=== PATIENT | female | born 1945 | race Caucasian/White ===

== ENCOUNTER 2021-07-21 12:47 | Inpatient (IN) | payer MEDICARE, MEDICAID, SELFPAY ==
[2021-07-21] VITALS (31 sets, daily range): BP systolic 92–181; BP diastolic 50–160; PULSE 70–116; RESP 14–25; TEMP 35.4–37.1; O2SAT 95–100; BMI 39.4; BMI 38.3
--- NOTE | 2021-07-21 13:02 | CT_ITS ---
STUDY: CT BRAIN WITHOUT CONTRAST REASON FOR EXAM: Female, 76 years old. GCS 6, head trauma concern for hemorrhage RADIATION DOSAGE (If Supplied By Facility): CTDIvol = ( 44.99 ) mGy, DLP = ( 863.60 ) mGycm TECHNIQUE: Transaxial CT imaging of the brain was performed without administration of intravenous contrast material. Individualized dose optimization techniques were used for this CT. COMPARISON: No relevant priors. FINDINGS: Normal soft tissue structures. Normal calvarium. Endotracheal tube is visualized. There is mild cerebral atrophy with widening of the extra-axial spaces and ventricular dilatation. There are areas of decreased attenuation within the white matter tracts of the supratentorial brain, consistent with microvascular disease changes. Normal basal ganglia and thalami. Normal brainstem. Normal cerebellum. There is no intracranial hemorrhage. There are no findings of an acute ischemic infarction. Atherosclerotic calcification of the vertebral arteries and cavernous portions of the internal carotid arteries bilaterally. Normal visualized paranasal sinuses. CT/Brain/Head without Contrast IMPRESSION: Chronic involutional changes of the brain. Electronically Signed: Marc Petit MD at 13:56 EST , Service support ,
--- NOTE | 2021-07-21 13:03 | EKG12_ITS ---
Test Reason : FALL Blood Pressure : / mmHG Vent. Rate : 114 BPM Atrial Rate : 114 BPM P-R Int : 144 ms QRS Dur : 104 ms QT Int : 358 ms P-R-T Axes : 049 -34 107 degrees QTc Int : 493 ms Sinus tachycardia Left axis deviation Left ventricular hypertrophy with repolarization abnormality Abnormal ECG Confirmed by MIGUELINA COYNE, MARTY ([id number]), index editor JACQUE ISBELL ([id number]) on 07/24/2021 11:00:57 AM Referred By: TRAM Confirmed By:MARTY MCINTYRE MD
--- NOTE | 2021-07-21 13:04 | RAD_ITS ---
STUDY: X-RAY CHEST REASON FOR EXAM: Female, 76 years old. Intubation TECHNIQUE: Single AP portable view of the chest. COMPARISON: None. FINDINGS: An endotracheal tube is in situ. The tip is at the origin of the right mainstem bronchus. It should be withdrawn approximately 2.5 cm. An orogastric tube is seen with the tip coiled in the fundal portion of the stomach. EKG electrodes are seen. The lungs are clear and expanded. There is no demonstrated pleural abnormality. Normal size heart. Normal mediastinum and meagan. Normal visualized pulmonary arteries. There is atherosclerotic calcification of the aortic arch with tortuosity. There are diffuse degenerative changes of the visualized thoracic spine. Status post left shoulder replacement. There is no demonstrated abnormality of the visualized soft tissue structures of the upper abdomen. RAD/Chest 1 View (Portable) IMPRESSION: The tip of the endotracheal tube is at the origin of the right mainstem bronchus. It should be pulled back approximately 2.5 cm. The tip of the orogastric tube is coiled with the tip in the fundal portion of the stomach. The lungs are unremarkable. Electronically Signed: Marc Petit MD at 14:06 EST , Service support ,
[2021-07-21] MEDS: Rocuronium Bromide 50 MG/5 ML Vial 60 MG IV (13:12)
[2021-07-21] MEDS: Etomidate 20 MG/10 ML Vial IV (13:12)
--- NOTE | 2021-07-21 13:16 | EX.ED.CRITCA ---
HPI History of Present Illness Chief Complaint: Alt LOC Detail of Chief Complaint: Altered mental status. Daughter saw last week. Informant: family Onset/Context/Timing Onset: - (There is discrepancy when patient became less responsive) Mechanism/Context: Yes fall and Yes other Current Severity: Severe Maximum Severity: Severe Worsened by: Patient has history of thrombocytopenia due to cirrhotic liver disease Relieved by: Nothing Associated Symptoms Length of loss of consciousness: Unknown Narrative Narrative: Patient is an elderly woman with history of hypertension, cirrhotic liver disease, GERD who was seen 2 weeks ago at outside facility after fall. Work-up apparently was negative. Daughter is concerned because she has bruises and is not responsive. Per daughter she is at nursing facility for rehab after fall. Daughter states she was talking and able to walk 1 month ago. She is concerned because she is very edematous. Prior similar symptoms: No Recent Illness/Hospitalization: Yes PFSH PFSH Medical History CHF (congestive heart failure) Hepatic failure HLD (hyperlipidemia) HTN (hypertension) STEARNS (nonalcoholic steatohepatitis) Peripheral vascular disease Type 2 diabetes mellitus Home Medications acetaminophen 500 mg PO Q6H PRN 07/21/21 [History Last Taken 07/16/21] bumetanide [Bumex] 2 mg PO DAILY 07/21/21 [History Last Taken 07/21/21] cinnamon bark [Cinnamon] 500 mg PO BID 07/21/21 [History Last Taken 07/21/21] isosorbide mononitrate 30 mg PO DAILY 07/21/21 [History Last Taken 07/21/21] lactulose 30 ml PO 4X/DAY 07/21/21 [History Last Taken 07/21/21] levothyroxine 25 mcg PO DAILY 07/21/21 [History Last Taken 07/21/21] lisinopril 5 mg PO DAILY 07/21/21 [History Last Taken 07/21/21] olopatadine 1 drp EACH EYE BID 07/21/21 [History Last Taken 07/21/21] omeprazole 20 mg PO DAILY 07/21/21 [History Last Taken 07/21/21] rifaximin 550 mg PO BID 07/21/21 [History Last Taken 07/21/21] spironolactone [Aldactone] 25 mg PO DAILY 07/21/21 [History Last Taken 07/21/21] tramadol 50 mg PO Q6H PRN 07/21/21 [History Last Taken 07/19/21] Allergy/AdvReac Type Severity Reaction Status Date / Time No Known Allergies Allergy Verified 07/21/21 12:55 Surgical History H/O hernia repair H/O tubal ligation Social History (Updated 07/21/21 @ 13:[address] Loc Atkins MD) housing: group home Smoking Status: Never smoker substance use type: does not use ROS ROS ED Review of Systems ROS Unobtainable: due to mental status EXAM Physical Exam Const Vital Signs: 07/21/21 12:49 07/21/21 12:56 07/21/21 13:17 Temperature 97.8 F Temperature Source Temporal Pulse Rate 87 83 98 Respiratory Rate 22 H 18 16 Respiratory Effort Normal Respiratory Pattern Normal Blood Pressure 181/160 H 129/57 H 176/87 H Blood Pressure Mean 167 81 116 Pulse Ox 95 96 100 Oxygen Delivery Method Room Air Room Air Mechanical Ventilator Fraction of Inspired Oxygen (FIO2) 07/21/21 13:20 07/21/21 13:28 07/21/21 13:33 Temperature Temperature Source Pulse Rate 101 H 101 H Respiratory Rate 16 16 Respiratory Effort Normal Non-Labored Respiratory Pattern Blood Pressure 159/82 H Blood Pressure Mean 107 Pulse Ox 100 100 Oxygen Delivery Method Mechanical Ventilator Fraction of Inspired Oxygen (FIO2) 50 50 07/21/21 13:57 07/21/21 14:13 07/21/21 14:35 Temperature 96.9 F L Temperature Source Core Pulse Rate 116 H 113 H 104 H Respiratory Rate 25 H 19 H 16 Respiratory Effort Respiratory Pattern Blood Pressure 144/89 H 151/83 H 127/83 H Blood Pressure Mean 107 105 97 Pulse Ox 98 97 96 Oxygen Delivery Method Mechanical Ventilator Mechanical Ventilator Mechanical Ventilator Fraction of Inspired Oxygen (FIO2) 50 07/21/21 14:47 07/21/21 14:56 Temperature Temperature Source Pulse Rate 92 91 Respiratory Rate 16 16 Respiratory Effort Respiratory Pattern Blood Pressure 112/66 92/56 L Blood Pressure Mean 81 68 Pulse Ox 96 96 Oxygen Delivery Method Mechanical Ventilator Mechanical Ventilator Fraction of Inspired Oxygen (FIO2) Positive well nourished, well developed, obese and unkempt General Appearance ED: unkempt, well developed, pallor and other Bruises to face, head, torso Nutritional Appearance: obese HEENT trauma; Negative for cyanosis of lips/distal nose Eyes Negative for PERRL or EOMs intact bilaterally Eyes Narrative: Eyes are deviated to the left. Pupils are 1 to 2 mm in size. Neck no lymphadenopathy and no JVD Chest Wall Chest Narrative: Bruising noted. Resp Resp Narrative: Patient has upper airway transmission of sounds to the lower lung. She is having difficulty controlling her secretions and clearing her secretions. Cardio regular rate, regular rhythm, S1 normal heart sound, S2 normal heart sound and no murmurs GI non-tender Palpation: soft Extremity Extremity Narrative: Edema of upper and lower extremities that is pitting Neuro Sensorium / Orientation: lethargic and stuporous Psych Psych Narrative: Unable to assess Appearance: unkempt Skin Skin Narrative: Multiple bruises General Skin Exam: pallor MDM MDM MDM Narrative Medical decision making narrative: The GCS of 6 head trauma eyes deviated concerned she may have an intracranial bleed. She has a signed DNR Comfort Care arrest. This was reviewed with daughter. Daughter states she does not want her heart restarted. Need to rule out intracranial pathology, metabolic and infectious process. Since patient lists levothyroxine as medication will obtain TSH and since she has cirrhosis of the liver will obtain ammonia level as well. Patient was orotracheally intubated. She was placed on high percent nonrebreather. Oxygen was 1%. She received 20 mg of etomidate and 60 mg of rocuronium. She was intubated successfully on first attempt using a 7.5 endotracheal tube. There is concerned she aspirated since there is purulent material noted at the cords. For this reason since there is no antibiotic allergies we will treat with Zosyn for aspiration at a nursing facility. Ammonia is pending. Hospitalist was paged and the patient will require admission to the ICU. The endotracheal tube was pulled back 2 cm. Lab Data Attestation: I reviewed the patient's lab results. Lab results narrative: Patient has anemia. Platelet count is 195,000. PT is slightly elevated with a NR. Urinalysis is essentially markable lactate is elevated 2.4. Chloride is elevated 114. BUN and creatinine are elevated 43 and 1.37 respectively with a GFR of 40 and BUN to creatinine ratio of 1:1 albumin is low at 1.9. TSH is normal. Labs: Laboratory Results - last 24 hr 07/21/21 07/21/21 07/21/21 13:10 13:31 13:54 WBC 9.0 RBC 2.96 L Hgb 8.8 L Hct 27.8 L MCV 93.9 MCH 29.7 MCHC 31.7 L RDW Std Deviation 55.9 H RDW Coeff of [place] 17.1 H Plt Count 195 MPV 10.9 Immature Gran % (Auto) 0.300 Neut % (Auto) 58.6 Lymph % (Auto) 24.9 [place] % (Auto) 14.3 H Eos % (Auto) 1.6 Baso % (Auto) 0.3 Absolute Neuts (auto) 5.3 Absolute Lymphs (auto) 2.25 Nucleated RBC % 0 PT 16.6 H INR 1.4 APTT 33.0 Sodium Potassium Chloride Carbon Dioxide Anion Gap BUN Creatinine Estim Creat Clear Calc Est GFR (MDRD) Af Amer Est GFR (MDRD) Non-Af BUN/Creatinine Ratio Glucose Lactic Acid Calcium Total Bilirubin AST ALT Alkaline Phosphatase Total Protein Albumin Globulin Albumin/Globulin Ratio TSH Urine Color Straw Urine Clarity Clear Urine pH 6.0 Ur Specific [place] 1.010 Urine Protein Negative Urine Glucose (UA) Normal Urine Ketones Negative Urine Occult Blood 10 H Urine Nitrite Negative Urine Bilirubin Negative Urine Urobilinogen Normal Ur Leukocyte Esterase Negative Urine RBC 0-5 SEEN Urine WBC 0 SEEN Ur Squamous Epith Cells 0-5 SEEN Urine Bacteria RARE Urine Mucus 0 SEEN 07/21/21 07/21/21 13:54 13:54 WBC RBC Hgb Hct MCV MCH MCHC RDW Std Deviation RDW Coeff of [place] Plt Count MPV Immature Gran % (Auto) Neut % (Auto) Lymph % (Auto) [place] % (Auto) Eos % (Auto) Baso % (Auto) Absolute Neuts (auto) Absolute Lymphs (auto) Nucleated RBC % PT INR APTT Sodium 143 Potassium 3.7 Chloride 114 H Carbon Dioxide 23.0 Anion Gap 6 BUN 43 H Creatinine 1.37 H Estim Creat Clear Calc 33.73 Est GFR (MDRD) Af Amer 48 L Est GFR (MDRD) Non-Af 40 L BUN/Creatinine Ratio 31.4 H Glucose 128 H Lactic Acid 2.4 H* Calcium 8.7 Total Bilirubin 1.20 H AST 78 H ALT 49 Alkaline Phosphatase 129 H Total Protein 6.1 L Albumin 1.9 L Globulin 4.2 Albumin/Globulin Ratio 0.5 L TSH 2.38 Urine Color Urine Clarity Urine pH Ur Specific [place] Urine Protein Urine Glucose (UA) Urine Ketones Urine Occult Blood Urine Nitrite Urine Bilirubin Urine Urobilinogen Ur Leukocyte Esterase Urine RBC Urine WBC Ur Squamous Epith Cells Urine Bacteria Urine Mucus ABG Data ABG results: ABG 07/21/21 13:49 Specimen Type ART Sample Site L Radial pH 7.48 H Bicarbonate Actual 21.9 L Total CO2 23 Base Excess -2 O2 Saturation 99 O2 % 50 ABG pCO2 29.7 L ABG pO2 140 H [place] Test N/A Respiration Rate 16 O2 Delivery Device ET Tube Vent Mode AC Tidal Volume 450 POC PEEP 5 Radiography Chest X-Ray - ED: 1 View (X-ray was reviewed by me when it was taken and interpreted as negative for any intraparenchymal pathology. Endotracheal tube is in proposition. Orogastric tube is in proper position. There is no evidence of pneumothorax or effusion. Osseous structures appear normal.) Diagnostic Testing: Clinical Impression(s) from Imaging Studies Brain CT 07/21/21 13:02 IMPRESSION: Chronic involutional changes of the brain. Electronically Signed: Marc Petit MD at 13:56 EST , Service support , Chest X-Ray 07/21/21 13:04 IMPRESSION: The tip of the endotracheal tube is at the origin of the right mainstem bronchus. It should be pulled back approximately 2.5 cm. The tip of the orogastric tube is coiled with the tip in the fundal portion of the stomach. The lungs are unremarkable. Electronically Signed: Marc Petit MD at 14:06 EST , Service support , ET of the head was reviewed by me and interpreted radiologist as chronic involutional changes. EKG Initial EKG: Attestation: I personally reviewed and interpreted this EKG as follows: Interpretation: Sinus Tachycardia (Ventricular rate is 114. [place] to left. DE interval is 144 ms. QS duration is 104 ms. QT duration 3 and 58 ms. There is evidence of LVH with repolarization changes noted. There is also artifact. There is no acute ischemic changes noted.) Procedures Intubations Intubation Method: orotracheal Intubation Verification: Positive color change Intubation Complications: no complications Other Procedures Procedure(s): Patient was placed on her percent nonrebreather. She is medicated with 20 of etomidate and 60 rocuronium. Using glide scope intubated successfully on first attempt with a 7.5 endotracheal tube. There is appropriate color change noted on the capnometer and breath sounds were noted bilaterally. Critical Care Time Critical Care Time: Yes Critical care time (excluding procedures): 30-74 minutes (33), Including time spent: (History, physical, documentation, discussion with daughter regarding CODE STATUS, discussion with daughter when last known well, interpretation of laboratory results and initiation of therapy.), Discussing w/Patient &/or Family/Voice Data Communications Engineer, Discussing w/Consultants, Arranging Admission or Transfer and Performing Direct Patient Care at Bedside (Propofol and fentanyl drip because patient became out of sync with ventilator.) Discharge Plan Dx/Rx/DC Orders Clinical Impression: Altered mental status, Aspiration into airway, Cirrhosis of liver, Contusion of multiple sites, CHI (closed head injury), Hypoalbuminemia, Acute prerenal azotemia, Acute kidney insufficiency, Elevated bilirubin, Acidosis, lactic, Sinus tachycardia Disposition Disposition: [facility]
[2021-07-21 13:27] LABS: Absolute Lymphocyte Count 2.25 X10^3/uL (0.83-4.51); Absolute Neutrophil Count 5.3 X10^3/uL (2.0-7.7); Basophil# 0.03 X10^3/uL; Basophil% 0.3 % (0-1); Eosinophil# 0.14 X10^3/uL; Eosinophils% 1.6 % (0-5); Hematocrit 27.8 % (37-47); Hemoglobin 8.8 g/dL (12.0-15.0); Lymphocyte # 2.25 X10^3/ul (0.83-4.51); Lymphocyte % 24.9 % (19-41); Mean Corp Hgb Conc 31.7 g/dL (32-36); Mean Corpuscular Hgb 29.7 pg (27.0-32.0); Mean Corpuscular Volume 93.9 fL (81-99); Mean Platelet Vol. 10.9 fl (6.2-12.0); Monocyte# 1.29 X10^3/uL; Monocyte% 14.3 % (0-10); NRBC Flagged by Analyzer 0 % (0-5); Neutrophil # 5.28 X10^3/uL (2.7-7.7); Neutrophil % 58.6 % (47-70); Platelet Count 195 K/mm3 (150-450); RBC Distribution Width CV 17.1 % (11.6-14.6); RBC Distribution Width SD 55.9 fl (35.1-43.9); Red Blood Count 2.96 M/mm3 (4.2-5.4)
--- NOTE | 2021-07-21 13:29 | ED.RN ---
pt intubated at [address] smiley. et tube 7.5cm measuring 25 cm at lip. positive capnography color change.
[2021-07-21 13:42] LABS: Mucous, Urine 0 SEEN /hpf (<or=2+); White Blood Cells 0 SEEN /hpf (0-5)
[2021-07-21 13:44] LABS: Color, Urine Straw (Yellow); Glucose, Dipstick Normal (Normal); Ketone-Dipstick Negative (Negative); Leukocyte Esterase-Dipstick Negative /ul (Negative); Nitrite-Dipstick Negative (Negative); Occult Blood-Urine 10 /ul (Negative); Protein-Dipstick Negative (Negative); Urine Bilirubin Dipstick Negative (Negative); Urine Clarity Clear (Clear); Urine Urobilinogen Normal (Normal)
[2021-07-21 13:55] LABS: Base Excess -2 mmol/L (-2 to +2); Bicarbonate 21.9 mmol/L (22-26); Blood Gas Specimen Type ART; FI02 50; Mode AC; O2 Delivery Device ET Tube; PEEP 5; PO2 140 mmHG (75-100); RR 16; SITE L Radial; SO2 99 % (95-99); Total Carbon Dioxide 23 mmol/L; Vt 450; pCO2 29.7 mmHg (35-45); pH 7.48 (7.35-7.45)
[2021-07-21 13:59] LABS: Red Blood Cells-Urine 0-5 SEEN /hpf (0-5); Squamous Epithelial Cells - UA 0-5 SEEN /hpf (5-10)
[2021-07-21 14:00] LABS: Bacteria RARE /hpf (None Seen)
--- NOTE | 2021-07-21 14:12 | ED.RN ---
PT ARMS RESTLESS, MOVING AROUND. PLACED IN BILATERAL SOFT WRIST RESTRAINTS. DR. ALFARO AWARE. SEDATION ORDERED.
[2021-07-21 14:27] LABS: International Normalized Ratio 1.4; Prothrombin Time (Protime)PT. 16.6 SECONDS (11.7-14.9)
[2021-07-21 14:28] LABS: ALB/GLOB Ratio 0.5 RATIO (0.9-2.4); AST(SGOT) 78 U/L (15-37); Alanine Aminotransfer ALT/SGPT 49 U/L (13-56); Albumin, Serum 1.9 g/dL (3.2-5.0); Alkaline Phosphatase 129 U/L (45-117); Anion Gap 6 (5-15); BUN 43 mg/dL (7-18); BUN/Creat Ratio 31.4 RATIO (10-20); Calcium,Total 8.7 mg/dL (8.5-10.1); Chloride 114 mmol/L (98-107); Creatinine, Serum 1.37 mg/dL (0.55-1.02); EST Glomerular Filtration Rate 40 mL/min (>60); Est Glom Filt Rate - Afr Amer 48 mL/min (>60); Estimated Creatinine Clearance 33.73 ml/min; Globulin 4.2 g/dL (2.2-4.2); Glucose 128 mg/dL (74-106); Potassium 3.7 mmol/L (3.5-5.1); Protein, Total 6.1 g/dL (6.4-8.2); Sodium Level 143 mmol/L (136-145); Thyroid Stim Hormone (TSH) 2.38 uIU/mL (0.358-3.74)
[2021-07-21 14:34] LABS: Lactic Acid 2.4 mmol/L (0.4-1.9)
[2021-07-21] MEDS: Propofol 10MG/Ml 1,000 MG/100 ML Bottle 6.7 MG CONT INF (14:34)
[2021-07-21] MEDS: Propofol 200 MG/20 ML Vial 60 MG IV BOLUS (14:46)
--- NOTE | 2021-07-21 15:27 | PCM.HP.STD ---
HPI - General General Date of Admission: 07/21/21 Date of Service: 07/21/21 Chief Complaint: Altered mental status HPI Narrative JACKIE EDEN, is a 76 F with past medical history is again for end-stage liver disease currently resident at an extended care facility who was sent from an outside facility with altered mental status. Patient was on the vent at the time of my assessment and history was therefore taken from patient's daughter as well as a signout from the emergency department. Patient was reported to have fallen a couple of times while at the [facility]. On the morning of admission she was found to be more lethargic than her usual self. Was brought to the emergency department as a result. She was reported to be barely responsive and not protecting her airway. Decision was made to intubate the patient in the ER. It was a suspicion of possible aspiration however chest x-ray obtained was unremarkable. Patient was subsequently admitted to the intensive care unit for further management [facility] Medical History CHF (congestive heart failure) Hepatic failure HLD (hyperlipidemia) HTN (hypertension) STEARNS (nonalcoholic steatohepatitis) Peripheral vascular disease Type 2 diabetes mellitus Home Medications acetaminophen 500 mg PO Q6H PRN 07/21/21 [History Last Taken 07/16/21] bumetanide [Bumex] 2 mg PO DAILY 07/21/21 [History Last Taken 07/21/21] cinnamon bark [Cinnamon] 500 mg PO BID 07/21/21 [History Last Taken 07/21/21] isosorbide mononitrate 30 mg PO DAILY 07/21/21 [History Last Taken 07/21/21] lactulose 30 ml PO 4X/DAY 07/21/21 [History Last Taken 07/21/21] levothyroxine 25 mcg PO DAILY 07/21/21 [History Last Taken 07/21/21] lisinopril 5 mg PO DAILY 07/21/21 [History Last Taken 07/21/21] olopatadine 1 drp EACH EYE BID 07/21/21 [History Last Taken 07/21/21] omeprazole 20 mg PO DAILY 07/21/21 [History Last Taken 07/21/21] rifaximin 550 mg PO BID 07/21/21 [History Last Taken 07/21/21] spironolactone [Aldactone] 25 mg PO DAILY 07/21/21 [History Last Taken 07/21/21] tramadol 50 mg PO Q6H PRN 07/21/21 [History Last Taken 07/19/21] Allergy/AdvReac Type Severity Reaction Status Date / Time No Known Allergies Allergy Verified 07/21/21 12:55 Family History unable to obtain unable to obtain (Patient being intubated on the vent) Surgical History H/O hernia repair H/O tubal ligation Social History [facility]: [facility] Smoking Status: Never smoker substance use type: does not use ROS Review of Systems ROS Unobtainable: due to encephalopathy, due to endotracheal tube and due to mental condition Vital Signs Vital Signs Vital Signs: 07/21/21 12:49 07/21/21 12:56 07/21/21 13:17 Temperature 97.8 F Temperature Source Temporal Pulse Rate 87 83 98 Respiratory Rate 22 H 18 16 Respiratory Effort Normal Respiratory Pattern Normal Blood Pressure 181/160 H 129/57 H 176/87 H Blood Pressure Mean 167 81 116 Pulse Ox 95 96 100 Oxygen Delivery Method Room Air Room Air Mechanical Ventilator Fraction of Inspired Oxygen (FIO2) 07/21/21 13:20 07/21/21 13:28 07/21/21 13:33 Temperature Temperature Source Pulse Rate 101 H 101 H Respiratory Rate 16 16 Respiratory Effort Normal Non-Labored Respiratory Pattern Blood Pressure 159/82 H Blood Pressure Mean 107 Pulse Ox 100 100 Oxygen Delivery Method Mechanical Ventilator Fraction of Inspired Oxygen (FIO2) 50 50 07/21/21 13:57 07/21/21 14:13 07/21/21 14:35 Temperature 96.9 F L Temperature Source Core Pulse Rate 116 H 113 H 104 H Respiratory Rate 25 H 19 H 16 Respiratory Effort Respiratory Pattern Blood Pressure 144/89 H 151/83 H 127/83 H Blood Pressure Mean 107 105 97 Pulse Ox 98 97 96 Oxygen Delivery Method Mechanical Ventilator Mechanical Ventilator Mechanical Ventilator Fraction of Inspired Oxygen (FIO2) 50 07/21/21 14:47 07/21/21 14:50 07/21/21 14:56 Temperature Temperature Source Pulse Rate 92 91 Respiratory Rate 16 16 Respiratory Effort Respiratory Pattern Blood Pressure 112/66 92/56 L Blood Pressure Mean 81 68 Pulse Ox 96 95 96 Oxygen Delivery Method Mechanical Ventilator Mechanical Ventilator Fraction of Inspired Oxygen (FIO2) 40 07/21/21 15:08 07/21/21 15:14 07/21/21 15:15 Temperature 96.2 F L 96.1 F L Temperature Source Core Core Pulse Rate 90 93 Respiratory Rate 20 H 20 H Respiratory Effort Respiratory Pattern Blood Pressure 104/56 L 118/66 118/66 Blood Pressure Mean 72 83 83 Pulse Ox 97 97 Oxygen Delivery Method Mechanical Ventilator Mechanical Ventilator Fraction of Inspired Oxygen (FIO2) 40 40 07/21/21 15:26 Temperature 96.1 F L Temperature Source Core Pulse Rate 95 Respiratory Rate 22 H Respiratory Effort Respiratory Pattern Blood Pressure 123/63 H Blood Pressure Mean 83 Pulse Ox 96 Oxygen Delivery Method Mechanical Ventilator Fraction of Inspired Oxygen (FIO2) 40 Weight Weight: 111 kg Body Mass Index (BMI) 39.4 Physical Exam Narrative GENERAL: Patient on the vent HEENT: Atraumatic; EYES; Anicteric, Normal Conjunctiva NECK; supple, normal thyroid, RESPIRATORY: Diminished to auscultation CARDIOVASCULAR: Regular S1 S2, GI: soft, normoactive bowel sounds, : No Renal angle tenderness; EXTREMITIES: Bipedal edema MUSCULOSKELETAL: no muscle waisting NEURO: Patient on the vent SKIN: Areas of ecchymosis on both upper and lower extremities PSYCH; unable to assess with patient being on the vent Results Lab / Micro Data Result Diagrams: 07/21/21 13:10 07/21/21 13:54 Labs: Laboratory Results - last 24 hr 07/21/21 13:10: WBC 9.0, RBC 2.96 L, Hgb 8.8 L, Hct 27.8 L, MCV 93.9, MCH 29.7, MCHC 31.7 L, RDW Std Deviation 55.9 H, RDW Coeff of [place] 17.1 H, Plt Count 195, MPV 10.9, Immature Gran % (Auto) 0.300, Neut % (Auto) 58.6, Lymph % (Auto) 24.9, [place] % (Auto) 14.3 H, Eos % (Auto) 1.6, Baso % (Auto) 0.3, Absolute Neuts (auto) 5.3, Absolute Lymphs (auto) 2.25, Nucleated RBC % 0 07/21/21 13:31: Urine Color Straw, Urine Clarity Clear, Urine pH 6.0, Ur Specific [place] 1.010, Urine Protein Negative, Urine Glucose (UA) Normal, Urine Ketones Negative, Urine Occult Blood 10 H, Urine Nitrite Negative, Urine Bilirubin Negative, Urine Urobilinogen Normal, Ur Leukocyte Esterase Negative, Urine RBC 0-5 SEEN, Urine WBC 0 SEEN, Ur Squamous Epith Cells 0-5 SEEN, Urine Bacteria RARE, Urine Mucus 0 SEEN 07/21/21 13:54: PT 16.6 H, INR 1.4, APTT 33.0 07/21/21 13:54: Sodium 143, Potassium 3.7, Chloride 114 H, Carbon Dioxide 23.0, Anion Gap 6, BUN 43 H, Creatinine 1.37 H, Estim Creat Clear Calc 33.73, Est GFR (MDRD) Af Amer 48 L, Est GFR (MDRD) Non-Af 40 L, BUN/Creatinine Ratio 31.4 H, Glucose 128 H, Calcium 8.7, Total Bilirubin 1.20 H, AST 78 H, ALT 49, Alkaline Phosphatase 129 H, Total Protein 6.1 L, Albumin 1.9 L, Globulin 4.2, Albumin/Globulin Ratio 0.5 L, TSH 2.38 07/21/21 13:54: Lactic Acid 2.4 H* 07/21/21 14:35: Ammonia 133.0 H Micro: Microbiology 07/21/21 13:31 Nasal Secretion SARS-CoV-2 Antigen (Rapid) - Final ABG Data ABG results: ABG 07/21/21 13:49 Specimen Type ART Sample Site L Radial pH 7.48 H Bicarbonate Actual 21.9 L Total CO2 23 Base Excess -2 O2 Saturation 99 O2 % 50 ABG pCO2 29.7 L ABG pO2 140 H Randolph Test N/A Respiration Rate 16 O2 Delivery Device ET Tube Vent Mode AC Tidal Volume 450 POC PEEP [address] 07/21/21 13:02 IMPRESSION: Chronic involutional changes of the brain. Electronically Signed: Marc Petit MD at 13:56 EST , Service support , Chest X-Ray 07/21/21 13:04 IMPRESSION: The tip of the endotracheal tube is at the origin of the right mainstem bronchus. It should be pulled back approximately 2.5 cm. The tip of the orogastric tube is coiled with the tip in the fundal portion of the stomach. The lungs are unremarkable. Electronically Signed: Marc Petit MD at 14:06 EST , Service support , Assessment & Plan Assessment/Plan (1) Altered mental status: (2) Cirrhosis of liver: (3) Acute kidney insufficiency: (4) Acidosis, lactic: PLAN: Patient is a 76-year-old lady with past medical history significant for cirrhosis of the liver admitted with altered mental status 1. Acute hepatic encephalopathy ? Patient has been admitted to the intensive care unit, patient started on lactulose with consultation placed to GI 2. Acute hypoxic respiratory failure ? Secondary to above. There was a question of possible aspiration however there was no evidence of any infiltrate on patient's chest x-ray. Patient was intubated in the emergency department prior to admission consult placed to information technology manager for vent management 3. End-stage liver disease secondary to cirrhosis of the liver ? Patient presented with acute hepatic encephalopathy management as discussed above 4. Lactic acidosis ? Secondary to patient hepatic encephalopathy 5. Acute renal insufficiency ? Baseline creatinine unknown patient started on fluid with monitoring of electrolyte 6. Essential hypertension ? Patient blood pressure on the low side antihypertensives held DVT prophylaxis ? SC Lovenox 30 mg daily Advance planning; did discuss with the patient's family (her daughter) regarding advanced directives as well as CODE STATUS. Did explain the various scenarios involved ( FULL CODE, DNR CCA, DNR CCA with no intubation, and DNR CC and what each meant) patient's daughter elected for patient to to be DNR CCA but with intubation. Order was placed. Time spent on discussion 18 minutes. Charges/Coding Visit Charges Inpatient E&M: 72533 Init Hosp L3 Procedures Hospitalists Procedures: 00213 Advncd Care Plan 30 Min
--- NOTE | 2021-07-21 15:37 | ED.RN ---
JEMAL EDEN [facility] [phone].
--- NOTE | 2021-07-21 16:36 | PCS.PANDOC ---
PANDEMIC DOCUMENTATION INITIATED: Date: 02/20/2021 Time: 190
[2021-07-21] MEDS: 0.9% Normal Saline 1,000 ML 100 ML IV (16:43)
--- NOTE | 2021-07-21 17:18 | US_ITS ---
INDICATION: ascites and jaundice with biliary obstruction EXAMINATION: US Abdomen Complete TECHNIQUE: Snyder-scale and color Doppler imaging was performed of the abdomen. COMPARISON: None. Findings: The liver is coarse in echotexture and heterogenous, with areas of increased and decreased echogenicity. There is mild contour nodularity suggestive of cirrhosis. No focal hepatic mass is identified. The main portal vein is normal in size and patent demonstrating hepatopetal flow. The gallbladder has a thickened wall measuring up to 8 mm. No stones or sludge.. Sonographic Snyder''s tenderness is not appreciated. There is no evidence of intrahepatic biliary ductal dilatation. The CBD is nondilated measuring 6 mm at the level of the hemal hepatis. There are 2 cystic lesions within the pancreas, one measuring 1.8 cm while the other measures 0.8 cm. The spleen is normal in size. Right and left kidneys measure 8.5 and 10.9 cm in length respectively. The kidneys are normal in echogenicity. No focal renal lesion is identified. There is no evidence of hydronephrosis bilaterally. The abdominal aorta is normal in caliber where seen. The intrahepatic inferior vena cava is patent. There is mild free intraperitoneal fluid identified. US/Abdomen Complete IMPRESSION: Coarse and heterogenous liver with mild contour nodularity. Findings are consistent with cirrhosis. No evidence of focal hepatic mass. Portal venous hypertension is manifested by mild ascites. Gallbladder wall thickening, likely secondary to cirrhosis. Two small cystic lesions within the pancreas. Recommend follow-up nonemergent MRCP. Electronically Signed: Edwin Barbour MD at 22:07 EST Tel , Service support ,
[2021-07-21] MEDS: Lactulose 20 GM/30 ML UDC NG (17:26)
[2021-07-21] MEDS: Ceftriaxone 1 GM/50 ML BAG IV (17:26)
--- NOTE | 2021-07-21 17:34 | EX.PCM.CON.G ---
HPI Consult Data Date of Consult: 07/21/21 HPI Narrative HPI Narrative: 76 F with a past medical past medical history of Stearns cirrhosis, CHF associated with lower extremity edema and possible ascites. As per her daughter she has never had a paracentesis. She is not on Xifaxan or lactulose as an outpatient She has not been screened for varicesal As per her daughter. She apparently was living at home doing well and had a fall that resulted in multiple lacerations and head trauma. She developed worsening altered mental status and was brought to the emergency room for evaluation. She was not very responsive and could not protect her airway so she was intubated. An x-ray of the chest had shown possible aspiration pneumonia A biochemical analysis that showed. anemia with a hemoglobin of 8.8 increased BUN/creatinine ratio 43/1.7. We do not have baseline hemoglobin or kidney function. COUNT INCLUDES THE [facility] Medical History CHF (congestive heart failure) Hepatic failure HLD (hyperlipidemia) HTN (hypertension) STEARNS (nonalcoholic steatohepatitis) Peripheral vascular disease Type 2 diabetes mellitus Home Medications acetaminophen 500 mg PO Q6H PRN 07/21/21 [History Last Taken 07/16/21] bumetanide [Bumex] 2 mg PO DAILY 07/21/21 [History Last Taken 07/21/21] cinnamon bark [Cinnamon] 500 mg PO BID 07/21/21 [History Last Taken 07/21/21] isosorbide mononitrate 30 mg PO DAILY 07/21/21 [History Last Taken 07/21/21] lactulose 30 ml PO 4X/DAY 07/21/21 [History Last Taken 07/21/21] levothyroxine 25 mcg PO DAILY 07/21/21 [History Last Taken 07/21/21] lisinopril 5 mg PO DAILY 07/21/21 [History Last Taken 07/21/21] olopatadine 1 drp EACH EYE BID 07/21/21 [History Last Taken 07/21/21] omeprazole 20 mg PO DAILY 07/21/21 [History Last Taken 07/21/21] rifaximin 550 mg PO BID 07/21/21 [History Last Taken 07/21/21] spironolactone [Aldactone] 25 mg PO DAILY 07/21/21 [History Last Taken 07/21/21] tramadol 50 mg PO Q6H PRN 07/21/21 [History Last Taken 07/19/21] Allergy/AdvReac Type Severity Reaction Status Date / Time No Known Allergies Allergy Verified 07/21/21 12:55 Family History unable to obtain Surgical History H/O hernia repair H/O tubal ligation Social History housing: shelter Smoking Status: Never smoker substance use type: does not use ROS ROS Narrative Not able to be obtained due to patient being intubated and sedated Physical Exam HEENT HEENT Narrative: Multiple bruises all over her face Face and Sinus: face symmetric Nose: external nose normal Mouth: oral and palatal mucosa normal Eyes conjunctivae normal Neck full ROM General: normal visual inspection Lymph Lymphatic: no lymphadenopathy noted Chest inspection of chest normal and palpation of chest normal Chest: symmetrical chest wall rise Resp normal respiratory effort Effort and Inspection: able to speak in complete sentences Cardio regular rate GI non-distended Percussion: normal to percussion Rectal Exam: deferred Extremity Extremity Narrative: Severe lower extremity edema with stasis dermatitis Lab / Micro Data Result Diagrams: 07/21/21 13:10 07/21/21 13:54 Labs: Laboratory Results - last 24 hr 07/21/21 13:10: WBC 9.0, RBC 2.96 L, Hgb 8.8 L, Hct 27.8 L, MCV 93.9, MCH 29.7, MCHC 31.7 L, RDW Std Deviation 55.9 H, RDW Coeff of [place] 17.1 H, Plt Count 195, MPV 10.9, Immature Gran % (Auto) 0.300, Neut % (Auto) 58.6, Lymph % (Auto) 24.9, [place] % (Auto) 14.3 H, Eos % (Auto) 1.6, Baso % (Auto) 0.3, Absolute Neuts (auto) 5.3, Absolute Lymphs (auto) 2.25, Nucleated RBC % 0 07/21/21 13:31: Urine Color Straw, Urine Clarity Clear, Urine pH 6.0, Ur Specific [place] 1.010, Urine Protein Negative, Urine Glucose (UA) Normal, Urine Ketones Negative, Urine Occult Blood 10 H, Urine Nitrite Negative, Urine Bilirubin Negative, Urine Urobilinogen Normal, Ur Leukocyte Esterase Negative, Urine RBC 0-5 SEEN, Urine WBC 0 SEEN, Ur Squamous Epith Cells 0-5 SEEN, Urine Bacteria RARE, Urine Mucus 0 SEEN 07/21/21 13:54: PT 16.6 H, INR 1.4, APTT 33.0 07/21/21 13:54: Sodium 143, Potassium 3.7, Chloride 114 H, Carbon Dioxide 23.0, Anion Gap 6, BUN 43 H, Creatinine 1.37 H, Estim Creat Clear Calc 33.73, Est GFR (MDRD) Af Amer 48 L, Est GFR (MDRD) Non-Af 40 L, BUN/Creatinine Ratio 31.4 H, Glucose 128 H, Calcium 8.7, Total Bilirubin 1.20 H, AST 78 H, ALT 49, Alkaline Phosphatase 129 H, Total Protein 6.1 L, Albumin 1.9 L, Globulin 4.2, Albumin/Globulin Ratio 0.5 L, TSH 2.38 07/21/21 13:54: Lactic Acid 2.4 H* 07/21/21 14:35: Ammonia 133.0 H Micro: Microbiology 07/21/21 13:31 Nasal Secretion SARS-CoV-2 Antigen (Rapid) - Final ABG Data ABG results: ABG 07/21/21 13:49 Specimen Type ART Sample Site L Radial pH 7.48 H Bicarbonate Actual 21.9 L Total CO2 23 Base Excess -2 O2 Saturation 99 O2 % 50 ABG pCO2 29.7 L ABG pO2 140 H [place] Test N/A Respiration Rate 16 O2 Delivery Device ET Tube Vent Mode AC Tidal Volume 450 POC PEEP [address] 07/21/21 13:02 IMPRESSION: Chronic involutional changes of the brain. Electronically Signed: Marc Petit MD at 13:56 EST , Service support , Chest X-Ray 07/21/21 13:04 IMPRESSION: The tip of the endotracheal tube is at the origin of the right mainstem bronchus. It should be pulled back approximately 2.5 cm. The tip of the orogastric tube is coiled with the tip in the fundal portion of the stomach. The lungs are unremarkable. Electronically Signed: Marc Petit MD at 14:06 EST , Service support , Assessment & Plan Assessment/Plan (1) Altered mental status: PLAN: Decompensated cirrhosis with hepatic encephalopathy (ammonia level was 143 )likely causing altered mental status. I agree with lactulose 30 mL every 4. (2) Cirrhosis of liver: PLAN: End-stage liver disease likely secondary to Stearns cirrhosis. She should be screened for varices in the setting of anemia and increased BUN/creatinine ratio possibly secondary to upper GI bleed to cause decompensated cirrhosis. (3) Anemia: PLAN: I would monitor hemoglobin and put her on a PPI drip, octreotide and continue ceftriaxone for presumed upper GI bleed. Charges/Coding Visit Charges Inpatient E&M: 60240 Init Hosp L3
[2021-07-21 17:58] LABS: Reflex Lactate? Y
[2021-07-21 21:58] LABS: Lactic Acid 2.9 mmol/L (0.4-1.9)
[2021-07-21] MEDS: Chlorhexidine 15 ML PO (22:34)
[2021-07-21] MEDS: Nystatin Powder 15gm Bottle 1 APPLIC TOPICAL (22:35)
[2021-07-21] MEDS: Lactulose 20 GM/30 ML UDC PO (22:35)
[2021-07-21] MEDS: Propofol 10MG/Ml 1,000 MG/100 ML Bottle 10 MG CONT INF (23:00)
[2021-07-22] VITALS (39 sets, daily range): BP systolic 85–108; BP diastolic 42–62; PULSE 66–89; RESP 10–21; TEMP 35.5–36.4; O2SAT 98–100
[2021-07-22] MEDS: Lactulose 20 GM/30 ML UDC PO ×2 (02:21→06:35)
[2021-07-22] MEDS: 0.9% Normal Saline 1,000 ML 100 ML IV (03:13)
[2021-07-22 05:09] LABS: ALB/GLOB Ratio 0.4 RATIO (0.9-2.4); AST(SGOT) 67 U/L (15-37); Alanine Aminotransfer ALT/SGPT 48 U/L (13-56); Albumin, Serum 1.6 g/dL (3.2-5.0); Alkaline Phosphatase 117 U/L (45-117); Anion Gap 10 (5-15); BUN 41 mg/dL (7-18); BUN/Creat Ratio 27.5 RATIO (10-20); Calcium,Total 8.1 mg/dL (8.5-10.1); Chloride 113 mmol/L (98-107); Creatinine, Serum 1.49 mg/dL (0.55-1.02); EST Glomerular Filtration Rate 36 mL/min (>60); Est Glom Filt Rate - Afr Amer 44 mL/min (>60); Estimated Creatinine Clearance 31.01 ml/min; Glucose 137 mg/dL (74-106); Potassium 3.9 mmol/L (3.5-5.1); Protein, Total 5.6 g/dL (6.4-8.2); Sodium Level 142 mmol/L (136-145)
--- NOTE | 2021-07-22 06:33 | CON.PCM.CC_ITS ---
Assessment & Plan Assessment/Plan (1) Altered mental status: (2) Acute respiratory failure: PLAN: RECOMMENDATIONS: 1. Continue assist control mode of mechanical ventilation. Wean FiO2 for saturations greater than 90%. 2. Plan for spontaneous breathing trial once mentation improves. 3. Stop continuous IV fluids. 4. Plan for upper endoscopy this morning. 5. Continue lactulose and rifaximin. 6. Continue appropriate GI prophylaxis. IMPRESSIONS: 1. Acute respiratory failure The patient was initially intubated in the emergency department due to presenting encephalopathy and concern for airway protection. The patient has a history of end-stage liver disease but is not currently on lactulose or rifaximin. Her presenting encephalopathy is secondary to hyperammonemia due to her underlying liver dysfunction. Antibiotics will be continued for an additional 24 hours, pending finalized culture results. 2. Decompensated cirrhosis with associated hepatic encephalopathy The patient presented to the hospital in an unresponsive state secondary to hepatic encephalopathy. 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 Gastroenterology is currently fol lowing to assist with medical management. Plan for upper endoscopy this morning. Rifaximin and lactulose will be continued as ordered. 3. Acute kidney injury/anemia/advanced age Complicates care, management, recovery and prognosis. Continue supportive measures as noted above. No indication for tube feeds at this time. TIME: 40 minutes of critical care time, independent of procedures, was spent addressing the patient's acute respiratory failure, decompensated cirrhosis, hepatic encephalopathy, review of all data and collaboration with the care team. HPI Consult Data Date of Consult: 07/22/21 HPI Narrative Reason for Consultation: Respiratory failure, altered mentation HPI Narrative: The patient is a 76-year-old female, with a history as outlined below, who presented to the emergency department on July 21 with altered mentation. History pertinent to her hospitalization was obtained primarily via chart review, as the patient is currently intubated and there is no family available to bedside. She has an apparent history of end-stage liver disease and currently resides at an extended care facility. The patient has a history of frequent falls. On presentation to the emergency department, the patient was noted to be hypertensive, but was maintaining appropriate oxygen saturations on room air. Initial laboratory evaluation revealed a hemoglobin of 8.8 g/dL with a platelet count of 195,000. Coagulation profile revealed an INR of 1.4. Chemistry profile was notable for a chloride of 114 with a creatinine of 1.37, lactate of 2.4, total bili of 1.2, AST of 78 and alkaline phosphatase of 129. Ammonia was elevated at 133. Albumin is low at 1.9. Urine analysis was unremarkable. Given the patient's depressed mental state, she was intubated in the emergency department. The patient was placed on antimicrobials over concerns for potential aspiration. Head CT was unremarkable. Aside from a right mainstem intubation on chest imaging, the lung parenchyma was unremarkable. Abdominal ultrasound revealed findings concerning for cirrhosis along with gallbladder wall thickening. The patient was subsequently transferred to the medical intensive care unit. [facility] Medical History CHF (congestive heart failure) Hepatic failure HLD (hyperlipidemia) HTN (hypertension) RINCON (nonalcoholic steatohepatitis) Peripheral vascular disease Type 2 diabetes mellitus Home Medications acetaminophen 500 mg PO Q6H PRN 07/21/21 [History Last Taken 07/16/21] bumetanide [Bumex] 2 mg PO DAILY 07/21/21 [History Last Taken 07/21/21] cinnamon bark [Cinnamon] 500 mg PO BID 07/21/21 [History Last Taken 07/21/21] isosorbide mononitrate 30 mg PO DAILY 07/21/21 [History Last Taken 07/21/21] lactulose 30 ml PO 4X/DAY 07/21/21 [History Last Taken 07/21/21] levothyroxine 25 mcg PO DAILY 07/21/21 [History Last Taken 07/21/21] lisinopril 5 mg PO DAILY 07/21/21 [History Last Taken 07/21/21] olopatadine 1 drp EACH EYE BID 07/21/21 [History Last Taken 07/21/21] omeprazole 20 mg PO DAILY 07/21/21 [History Last Taken 07/21/21] rifaximin 550 mg PO BID 07/21/21 [History Last Taken 07/21/21] spironolactone [Aldactone] 25 mg PO DAILY 07/21/21 [History Last Taken 07/21/21] tramadol 50 mg PO Q6H PRN 07/21/21 [History Last Taken 07/19/21] Allergy/AdvReac Type Severity Reaction Status Date / Time No Known Allergies Allergy Verified 07/21/21 12:55 Family History unable to obtain Surgical History H/O hernia repair H/O tubal ligation Social History housing: custodial Smoking Status: Never smoker substance use type: does not use ROS Review of Systems ROS Unobtainable: due to endotracheal tube and due to mental status Physical Exam Const no apparent distress General Appearance: intubated and patient mechanically ventilated Nutritional Appearance: obese HEENT normocephalic Mouth: endotracheal tube in place and OG tube in place Eyes PERRL and EOMs intact bilaterally Neck supple General: trachea midline Resp Auscultation: diminished lung sounds; Negative for rales, rhonchi or wheezes Cardio regular rate and regular rhythm GI normal to inspection, nondistended, normoactive bowel sounds Extremity General Extremity: edema bilateral lower extremity Skin Skin Narrative: Facial bruising present. General Skin Exam: erythema, lichenification, venous stasis and dermatitis Neuro Sensorium / Orientation: sedated on vent Lab / Micro Data Result Diagrams: 07/22/21 07:22 07/22/21 04:05 Labs: Laboratory Results - last 24 hr 07/21/21 13:10: WBC 9.0, RBC 2.96 L, Hgb 8.8 L, Hct 27.8 L, MCV 93.9, MCH 29.7, MCHC 31.7 L, RDW Std Deviation 55.9 H, RDW Coeff of [place] 17.1 H, Plt Count 195, MPV 10.9, Immature Gran % (Auto) 0.300, Neut % (Auto) 58.6, Lymph % (Auto) 24.9, [place] % (Auto) 14.3 H, Eos % (Auto) 1.6, Baso % (Auto) 0.3, Absolute Neuts (auto) 5.3, Absolute Lymphs (auto) 2.25, Nucleated RBC % 0 07/21/21 13:31: Urine Color Straw, Urine Clarity Clear, Urine pH 6.0, Ur Specific [place] 1.010, Urine Protein Negative, Urine Glucose (UA) Normal, Urine Ketones Negative, Urine Occult Blood 10 H, Urine Nitrite Negative, Urine Bilirubin Negative, Urine Urobilinogen Normal, Ur Leukocyte Esterase Negative, Urine RBC 0-5 SEEN, Urine WBC 0 SEEN, Ur Squamous Epith Cells 0-5 SEEN, Urine Bacteria RARE, Urine Mucus 0 SEEN 07/21/21 13:54: PT 16.6 H, INR 1.4, APTT 33.0 07/21/21 13:54: Sodium 143, Potassium 3.7, Chloride 114 H, Carbon Dioxide 23.0, Anion Gap 6, BUN 43 H, Creatinine 1.37 H, Estim Creat Clear Calc 33.73, Est GFR (MDRD) Af Amer 48 L, Est GFR (MDRD) Non-Af 40 L, BUN/Creatinine Ratio 31.4 H, Glucose 128 H, Calcium 8.7, Total Bilirubin 1.20 H, AST 78 H, ALT 49, Alkaline Phosphatase 129 H, Total Protein 6.1 L, Albumin 1.9 L, Globulin 4.2, Albumin/Globulin Ratio 0.5 L, TSH 2.38 07/21/21 13:54: Lactic Acid 2.4 H* 07/21/21 14:35: Ammonia 133.0 H 07/21/21 18:55: Lactic Acid Cancelled 07/21/21 21:05: Lactic Acid 2.9 H* 07/22/21 04:05: WBC Cancelled, Corrected WBC Cancelled, RBC Cancelled, Hgb Cancelled, Hct Cancelled, MCV Cancelled, MCH Cancelled, MCHC Cancelled, RDW Std Deviation Cancelled, RDW Coeff of [place] Cancelled, Plt Count Cancelled, MPV Cancelled, Immature Gran % (Auto) Cancelled, Neut % (Auto) Cancelled, Lymph % (Auto) Cancelled, [place] % (Auto) Cancelled, Eos % (Auto) Cancelled, Baso % (Auto) Cancelled, Absolute Neuts (auto) Cancelled, Absolute Lymphs (auto) Cancelled, Total Counted Cancelled, Neutrophils % (Manual) Cancelled, Band Neutrophils % Cancelled, Lymphocytes % (Manual) Cancelled, Monocytes % (Manual) Cancelled, Eosinophils % (Manual) Cancelled, Basophils % (Manual) Cancelled, Metamyelocytes % Cancelled, Myelocytes % Cancelled, Promyelocytes % Cancelled, Blast Cells % Cancelled, Plasma Cell % (Manual) Cancelled, Other Cells % Cancelled, Nucleated RBC % Cancelled, Nucleated RBCs/100 WBC Cancelled, Differential Comment Cancelled, Diff Path Review Cancelled, Hypersegmented Neuts Cancelled, Atypical Lymphocytes Cancelled, Reactive Lymphocytes Cancelled, Smudge Cells Cancelled, Toxic Granulation Cancelled, Toxic Vacuolation Cancelled, Dohle Bodies C ancelled, Jessica Rods Cancelled, Platelet Estimate Cancelled, Plt Morphology Comment Cancelled, RBC Morphology Cancelled, Polychromasia Cancelled, Hypochromasia Cancelled, Poikilocytosis Cancelled, Basophilic Stippling Cancelled, Anisocytosis Cancelled, Microcytosis Cancelled, Macrocytosis Cancelled, Spherocytes Cancelled, Sickle Cells Cancelled, Target Cells Cancelled, Tear Drop Cells Cancelled, Ovalocytes Cancelled, Stomatocytes Cancelled, [place] Bodies Cancelled, Pilar Cells Cancelled, Bite Cells Cancelled, Crenated Cell Cancelled, Acanthocytes (Spur) Cancelled, Rouleaux Cancelled, Schistocytes Cancelled 07/22/21 04:05: Sodium 142, Potassium 3.9, Chloride 113 H, Carbon Dioxide 19.0 L , Anion Gap 10, BUN 41 H, Creatinine 1.49 H, Estim Creat Clear Calc 31.01, Est GFR (MDRD) Af Amer 44 L, Est GFR (MDRD) Non-Af 36 L, BUN/Creatinine Ratio 27.5 H , Glucose 137 H, Calcium 8.1 L, Total Bilirubin 1.20 H, AST 67 H, ALT 48, Alkaline Phosphatase 117, Total Protein 5.6 L, Albumin 1.6 L, Globulin 4.0, Albumin/Globulin Ratio 0.4 L Micro: Microbiology 07/21/21 13:31 Nasal Secretion SARS-CoV-2 Antigen (Rapid) - Final ABG Data ABG results: ABG 07/21/21 13:49 Specimen Type ART Sample Site L Radial pH 7.48 H Bicarbonate Actual 21.9 L Total CO2 23 Base Excess -2 O2 Saturation 99 O2 % 50 ABG pCO2 29.7 L ABG pO2 140 H [place] Test N/A Respiration Rate 16 O2 Delivery Device ET Tube Vent Mode AC Tidal Volume 450 POC PEEP [address] 07/21/21 13:02 IMPRESSION: Chronic involutional changes of the brain. Electronically Signed: Marc Petit MD at 13:56 EST , Service support , Chest X-Ray 07/21/21 13:04 IMPRESSION: The tip of the endotracheal tube is at the origin of the right mainstem bronchus. It should be pulled back approximately 2.5 cm. The tip of the orogastric tube is coiled with the tip in the fundal portion of the stomach. The lungs are unremarkable. Electronically Signed: Marc Petit MD at 14:06 EST , Service support , Abdomen Ultrasound 07/21/21 17:18 IMPRESSION: Coarse and heterogenous liver with mild contour nodularity. Findings are consistent with cirrhosis. No evidence of focal hepatic mass. Portal venous hypertension is manifested by mild ascites. Gallbladder wall thickening, likely secondary to cirrhosis. Two small cystic lesions within the pancreas. Recommend follow-up nonemergent MRCP. Electronically Signed: Edwin Barbour MD at 22:07 EST Tel , Service support , Charges/Coding Procedures Hospitalists Procedures: [id number] [facility] Hr
[2021-07-22] MEDS: Nystatin Powder 15gm Bottle 1 APPLIC TOPICAL ×3 (06:35→22:18)
[2021-07-22] MEDS: 0.9% Saline Lock 10 ML Syringe IV ×2 (06:35→10:09)
--- NOTE | 2021-07-22 07:16 | PCM.PN.HOSP ---
Subjective Subjective Patient seen remains on the vent. Was seen in consultation by Dr. Moreland with GI octreotide added to patient's therapy. Patient scheduled to undergo EGD to rule out upper GI bleed Objective Data Objective Data Vital Signs: Vital Signs Temp Pulse Resp BP Pulse Ox 97.2 F L 73 10 L 94/53 L 100 07/22/21 06:00 07/22/21 06:00 07/22/21 06:00 07/22/21 06:00 07/22/21 06:00 Oxygen Delivery Method Mechanical Ventilator Weight: 107.7 kg Body Mass Index (BMI) 38.3 Intake & Output: Intake and Output for Last 24 Hours 07/20/21 07/21/21 07/22/21 23:59 23:59 23:59 Intake Total 2290.97 / 2310.97 561.14 / 561.14 Output Total 850 / 850 325 / 325 Balance 1440.97 / 1460.97 236.14 / 236.14 Lab / Micro Data Result Diagrams: 07/22/21 07:22 07/22/21 04:05 Labs: Laboratory Results - last 24 hr 07/21/21 13:10: WBC 9.0, RBC 2.96 L, Hgb 8.8 L, Hct 27.8 L, MCV 93.9, MCH 29.7, MCHC 31.7 L, RDW Std Deviation 55.9 H, RDW Coeff of [place] 17.1 H, Plt Count 195, MPV 10.9, Immature Gran % (Auto) 0.300, Neut % (Auto) 58.6, Lymph % (Auto) 24.9, [place] % (Auto) 14.3 H, Eos % (Auto) 1.6, Baso % (Auto) 0.3, Absolute Neuts (auto) 5.3, Absolute Lymphs (auto) 2.25, Nucleated RBC % 0 07/21/21 13:31: Urine Color Straw, Urine Clarity Clear, Urine pH 6.0, Ur Specific [place] 1.010, Urine Protein Negative, Urine Glucose (UA) Normal, Urine Ketones Negative, Urine Occult Blood 10 H, Urine Nitrite Negative, Urine Bilirubin Negative, Urine Urobilinogen Normal, Ur Leukocyte Esterase Negative, Urine RBC 0-5 SEEN, Urine WBC 0 SEEN, Ur Squamous Epith Cells 0-5 SEEN, Urine Bacteria RARE, Urine Mucus 0 SEEN 07/21/21 13:54: PT 16.6 H, INR 1.4, APTT 33.0 07/21/21 13:54: Sodium 143, Potassium 3.7, Chloride 114 H, Carbon Dioxide 23.0, Anion Gap 6, BUN 43 H, Creatinine 1.37 H, Estim Creat Clear Calc 33.73, Est GFR (MDRD) Af Amer 48 L, Est GFR (MDRD) Non-Af 40 L, BUN/Creatinine Ratio 31.4 H, Glucose 128 H, Calcium 8.7, Total Bilirubin 1.20 H, AST 78 H, ALT 49, Alkaline Phosphatase 129 H, Total Protein 6.1 L, Albumin 1.9 L, Globulin 4.2, Albumin/Globulin Ratio 0.5 L, TSH 2.38 07/21/21 13:54: Lactic Acid 2.4 H* 07/21/21 14:35: Ammonia 133.0 H 07/21/21 18:55: Lactic Acid Cancelled 07/21/21 21:05: Lactic Acid 2.9 H* 07/22/21 04:05: WBC Cancelled, Corrected WBC Cancelled, RBC Cancelled, Hgb Cancelled, Hct Cancelled, MCV Cancelled, MCH Cancelled, MCHC Cancelled, RDW Std Deviation Cancelled, RDW Coeff of [place] Cancelled, Plt Count Cancelled, MPV Cancelled, Immature Gran % (Auto) Cancelled, Neut % (Auto) Cancelled, Lymph % (Auto) Cancelled, [place] % (Auto) Cancelled, Eos % (Auto) Cancelled, Baso % (Auto) Cancelled, Absolute Neuts (auto) Cancelled, Absolute Lymphs (auto) Cancelled, Total Counted Cancelled, Neutrophils % (Manual) Cancelled, Band Neutrophils % Cancelled, Lymphocytes % (Manual) Cancelled, Monocytes % (Manual) Cancelled, Eosinophils % (Manual) Cancelled, Basophils % (Manual) Cancelled, Metamyelocytes % Cancelled, Myelocytes % Cancelled, Promyelocytes % Cancelled, Blast Cells % Cancelled, Plasma Cell % (Manual) Cancelled, Other Cells % Cancelled, Nucleated RBC % Cancelled, Nucleated RBCs/100 WBC Cancelled, Differential Comment Cancelled, Diff Path Review Cancelled, Hypersegmented Neuts Cancelled, Atypical Lymphocytes Cancelled, Reactive Lymphocytes Cancelled, Smudge Cells Cancelled, Toxic Granulation Cancelled, Toxic Vacuolation Cancelled, Dohle Bodies Cancelled, Jessica Rods Cancelled, Platelet Estimate Cancelled, Plt Morphology Comment Cancelled, RBC Morphology Cancelled, Polychromasia Cancelled, Hypochromasia Cancelled, Poikilocytosis Cancelled, Basophilic Stippling Cancelled, Anisocytosis Cancelled, Microcytosis Cancelled, Macrocytosis Cancelled, Spherocytes Cancelled, Sickle Cells Cancelled, Target Cells Cancelled, Tear Drop Cells Cancelled, Ovalocytes Cancelled, Stomatocytes Cancelled, [place] Bodies Cancelled, [place] Cells Cancelled, Bite Cells Cancelled, Crenated Cell Cancelled, Acanthocytes (Spur) Cancelled, Rouleaux Cancelled, Schistocytes Cancelled 07/22/21 04:05: Sodium 142, Potassium 3.9, Chloride 113 H, Carbon Dioxide 19.0 L, Anion Gap 10, BUN 41 H, Creatinine 1.49 H, Estim Creat Clear Calc 31.01, Est GFR (MDRD) Af Amer 44 L, Est GFR (MDRD) Non-Af 36 L, BUN/Creatinine Ratio 27.5 H, Glucose 137 H, Calcium 8.1 L, Total Bilirubin 1.20 H, AST 67 H, ALT 48, Alkaline Phosphatase 117, Total Protein 5.6 L, Albumin 1.6 L, Globulin 4.0, Albumin/Globulin Ratio 0.4 L Micro: Microbiology 07/21/21 13:31 Nasal Secretion SARS-CoV-2 Antigen (Rapid) - Final ABG Data ABG results: ABG 07/21/21 13:49 Specimen Type ART Sample Site L Radial pH 7.48 H Bicarbonate Actual 21.9 L Total CO2 23 Base Excess -2 O2 Saturation 99 O2 % 50 ABG pCO2 29.7 L ABG pO2 140 H [place] Test N/A Respiration Rate 16 O2 Delivery Device ET Tube Vent Mode AC Tidal Volume 450 POC PEEP 5 Radiography Diagnostic Testing: Radiology Impression Brain CT 07/21/21 13:02 IMPRESSION: Chronic involutional changes of the brain. Electronically Signed: Marc Petit MD at 13:56 EST , Service support , Chest X-Ray 07/21/21 13:04 IMPRESSION: The tip of the endotracheal tube is at the origin of the right mainstem bronchus. It should be pulled back approximately 2.5 cm. The tip of the orogastric tube is coiled with the tip in the fundal portion of the stomach. The lungs are unremarkable. Electronically Signed: Marc Petit MD at 14:06 EST , Service support , Abdomen Ultrasound 07/21/21 17:18 IMPRESSION: Coarse and heterogenous liver with mild contour nodularity. Findings are consistent with cirrhosis. No evidence of focal hepatic mass. Portal venous hypertension is manifested by mild ascites. Gallbladder wall thickening, likely secondary to cirrhosis. Two small cystic lesions within the pancreas. Recommend follow-up nonemergent MRCP. Electronically Signed: Edwin Barbour MD at 22:07 EST Tel , Service support , Physical Exam Narrative GENERAL: Patient on the vent HEENT: Atraumatic; EYES; Anicteric, Normal Conjunctiva NECK; supple, normal thyroid, RESPIRATORY: Diminished to auscultation CARDIOVASCULAR: Regular S1 S2, GI: soft, normoactive bowel sounds, : No Renal angle tenderness; EXTREMITIES: Bipedal edema with stasis dermatitis MUSCULOSKELETAL: no muscle waisting NEURO: Patient on the vent SKIN: Areas of ecchymosis on both upper and lower extremities as well as face PSYCH; unable to assess with patient being on the vent Assessment & Plan Assessment/Plan (1) Altered mental status: (2) Cirrhosis of liver: (3) Acute kidney insufficiency: (4) Acidosis, lactic: PLAN: Patient is a 76-year-old lady with past medical history significant for cirrhosis of the liver admitted with altered mental status 1. Acute hepatic encephalopathy ? Patient has been admitted to the intensive care unit, patient started on lactulose with consultation placed to GI -07/22/2021 Patient seen remains on the vent. Was seen in consultation by Dr. Moreland with GI octreotide added to patient's therapy. Patient scheduled to undergo EGD to rule out upper GI bleed 2. Acute hypoxic respiratory failure ? Secondary to above. There was a question of possible aspiration however there was no evidence of any infiltrate on patient's chest x-ray. Patient was intubated in the emergency department prior to admission consult placed to cement fittings maker for vent management -07/22/2021; patient remains on the vent 3. End-stage liver disease secondary to cirrhosis of the liver ? Patient presented with acute hepatic encephalopathy management as discussed above 4. Lactic acidosis ? Secondary to patient hepatic encephalopathy 5. Acute renal insufficiency ? Baseline creatinine unknown patient started on fluid with monitoring of electrolyte 6. Anemia - Secondary to chronic disorder monitoring H&H and transfuse if patient becomes symptomatic or hemoglobin falls below 7. Patient to undergo subsequent evaluation with an upper EGD. Currently on octreotide and Protonix drip in addition to Rocephin 7. Essential hypertension ? Patient blood pressure on the low side antihypertensives held 8. DVT prophylaxis ? Patient initially prescribed Lovenox which was discontinued in view of significant anemia and suspected upper GI bleed Charges/Coding Visit Charges Inpatient E&M: 93403 Subs Hosp L3
[2021-07-22 07:31] LABS: Absolute Lymphocyte Count 2.11 X10^3/uL (0.83-4.51); Basophil# 0.06 X10^3/uL; Basophil% 0.5 % (0-1); Eosinophil# 0.22 X10^3/uL; Eosinophils% 1.9 % (0-5); Hematocrit 27.8 % (37-47); Hemoglobin 8.9 g/dL (12.0-15.0); Lymphocyte # 2.11 X10^3/ul (0.83-4.51); Mean Corpuscular Hgb 30.2 pg (27.0-32.0); Mean Corpuscular Volume 94.2 fL (81-99); Mean Platelet Vol. 9.9 fl (6.2-12.0); Monocyte% 11.1 % (0-10); NRBC Flagged by Analyzer 0 % (0-5); Neutrophil # 7.96 X10^3/uL (2.7-7.7); Neutrophil % 68.1 % (47-70); Platelet Count 159 K/mm3 (150-450); RBC Distribution Width CV 16.7 % (11.6-14.6); RBC Distribution Width SD 56.1 fl (35.1-43.9); Red Blood Count 2.95 M/mm3 (4.2-5.4); White Blood Count 11.7 K/mm3 (4.4-11.0)
--- NOTE | 2021-07-22 09:21 | NURSING ---
and Endo team at bedside for EGD. Dr. Corrales managing sedation. 0928-Procedure complete, pt tolerated well
[2021-07-22] MEDS: Ceftriaxone 1 GM/50 ML BAG IV (10:00)
[2021-07-22] MEDS: Lactulose 20 GM/30 ML UDC 30 GM GT ×6 (10:01→23:56)
[2021-07-22] MEDS: Chlorhexidine 15 ML PO ×2 (10:09→22:17)
[2021-07-22] MEDS: CHLORHEXIDINE GLUC 2% CLOTH 1 EACH TOWELETTE TOPICAL (10:12)
[2021-07-22] MEDS: Levothyroxine 25 MCG TABLET GT (11:44)
--- NOTE | 2021-07-22 11:46 | OP.EGD_ITS ---
Patient Name: Izabela Melo Procedure Date: 07/22/2021 9:17 AM Date of : 1945 Age: 76 Procedure: Upper GI endoscopy Indications: Cirrhosis with suspected esophageal varices Providers: Luisito Moreland DO Medicines: See the Anesthesia note for documentation of the administered medications Patient Profile: This is a 76 year old female. Refer to note in patient chart for documentation of history and physical. Patient has symptoms. Complications: No immediate complications. Procedure: Pre-Anesthesia Assessment: - Prior to the procedure, a History and Physical was performed, and patient medications and allergies were reviewed. The risks and benefits of the procedure and the sedation options and risks were discussed with the patient. All questions were answered and informed consent was obtained. Patient identification and proposed procedure were verified by the physician in the pre-procedure area. Mental Status Examination: alert and oriented. Airway Examination: normal oropharyngeal airway and neck mobility. Respiratory Examination: clear to auscultation. CV Examination: normal. Prophylactic Antibiotics: The patient does not require prophylactic antibiotics. Prior Anticoagulants: The patient has taken no previous anticoagulant or antiplatelet agents. ASA Grade Assessment: II - A patient with mild systemic disease. After reviewing the risks and benefits, the patient was deemed in satisfactory condition to undergo the procedure. The anesthesia plan was to use moderate sedation / analgesia (conscious sedation). Immediately prior to administration of medications, the patient was re-assessed for adequacy to receive sedatives. The heart rate, respiratory rate, oxygen saturations, blood pressure, adequacy of pulmonary ventilation, and response to care were monitored throughout the procedure. The physical status of the patient was re-assessed after the procedure. After obtaining informed consent, the endoscope was passed under direct vision. Throughout the procedure, the patient's blood pressure, pulse, and oxygen saturations were monitored continuously. The Endoscope was introduced through the mouth, and advanced to the second part of duodenum. The upper GI endoscopy was accomplished without difficulty. The patient tolerated the procedure well. Moderate Sedation: Moderate (conscious) sedation was administered by the endoscopy nurse and supervised by the endoscopist. The following parameters were monitored: oxygen saturation, heart rate, blood pressure, and response to care. Total physician intraservice time was 15 minutes. Scope In: 9:24:27 AM Scope Out: 9:28:28 AM Total Procedure Duration Time 0 hours 4 minutes 1 second Findings: LA Grade C (one or more mucosal breaks continuous between tops of 2 or more mucosal folds, less than 75% circumference) esophagitis with no bleeding was found 34 to 37 cm from the incisors. Severe portal hypertensive gastropathy was found in the entire examined stomach. The second portion of the duodenum was normal. Impression: - LA Grade C reflux esophagitis. - Portal hypertensive gastropathy. - Normal second portion of the duodenum. - No specimens collected. Recommendation: - Return patient to ICU for ongoing care. - Continue present medications. - NPO. - Continue present medications. - Increase lactulose to Q2 hours -Midodrine 5mg TID Procedure Code(s): --- Professional --- 35713, Esophagogastroduodenoscopy, flexible, transoral; diagnostic, including collection of specimen(s) by brushing or washing, when performed (separate procedure) 37392, 59, Moderate sedation services provided by the same physician or other qualified health care management assistant performing the diagnostic or therapeutic service that the sedation supports, requiring the presence of an independent trained observer to assist in the monitoring of the patient's level of consciousness and physiological status; initial 15 minutes of intraservice time, patient age 5 years or older CPT copyright 2017 [employer]. All rights reserved. The codes documented in this report are preliminary and upon medical imaging specialist review may be revised to meet current compliance requirements. Luisito Moreland DO 07/22/2021 11:46:07 AM This report has been signed electronically. Number of Addenda: 1 Note Initiated On: 07/22/2021 9:17 AM Addendum Number: 1 Addendum Date: 03/15/2022 6:14:32 AM MAC was used instead of moderate sedation for the patient. Luisito Moreland DO 03/15/2022 6:14:38 AM This report has been signed electronically.
--- NOTE | 2021-07-22 11:46 | OP.CCLET_ITS ---
03/15/2022 [facility] Re : Upper GI endoscopy procedure for Izabela Melo Dear Ila This procedure was performed on Thursday, July 22, 2021. My impressions and recommendations are as follows: Impressions : - LA Grade C reflux esophagitis. - Portal hypertensive gastropathy. - Normal second portion of the duodenum. - No specimens collected. Recommendations : - Return patient to ICU for ongoing care. - Continue present medications. - NPO. - Continue present medications. - Increase lactulose to Q2 hours -Midodrine 5mg TID My findings are described in the full procedure note, which is enclosed. If I can be of further assistance, please feel free to contact me at . Sincerely, Luisito Moreland, 07/22/2021 11:46:07 AM This report has been signed electronically.
[2021-07-22] MEDS: Midodrine HCl 5 MG Tablet GT ×2 (12:03→22:17)
[2021-07-22] MEDS: rifAXIMin 550 MG Tablet GT ×2 (12:03→22:17)
--- NOTE | 2021-07-22 16:40 | RAD_ITS ---
STUDY: X-RAY - ABDOMEN/PELVIS REASON FOR EXAM: Female, 76 years old. Ileus TECHNIQUE: 1 view COMPARISON: None. FINDINGS: Please see the impression. RAD/Abdomen Single View (Portable) IMPRESSION: NG tube folded on itself in the distal esophagus with the tip pointing cephalad in the thoracic esophagus. The tube needs to be pulled back and readvanced. Diffuse small bowel and colonic dilatation, likely due to ileus. Multilevel thoracolumbar spondylosis. Osteoarthritis of the bilateral hip joints. Electronically Signed: Sheng Rey MD at 17:21 EST Tel , Service support ,
--- NOTE | 2021-07-22 18:20 | RAD_ITS ---
STUDY: X-RAY - ABDOMEN/PELVIS REASON FOR EXAM: Female, 76 years old. OG placement TECHNIQUE: 1 view COMPARISON: Earlier same day FINDINGS: Please see the impression. RAD/Abdomen Single View IMPRESSION: OG tube coiled on itself in the stomach with the tip in the distal gastric body. Diffuse colonic and small bowel dilatation, including with ileus. Electronically Signed: Sheng Rey MD at 19:08 EST Tel , Service support ,
--- NOTE | 2021-07-22 19:19 | CM.ED ---
SW Note ERIC called [facility] and spoke to Arnol. ERIC explained that patient is in the ICU. ERIC inquired if patient can return when she is medically ready and discharged. Arnol said that customs entry writer needs to speak to management. Elissa SANCHEZ
--- NOTE | 2021-07-22 20:11 | RAD_ITS ---
INDICATION: OGT placement EXAMINATION/TECHNIQUE: X-RAY - XR Abdomen 1 View COMPARISON: None FINDINGS: BOWEL GAS PATTERN: Non-obstructive. Multiple dilated loops of small bowel. No OG tube is visualized. FREE AIR: Not assessed on a single supine view. ORGANOMEGALY: Not seen. CALCIFICATIONS: No abnormal calcifications observed. LOWER CHEST: No acute pathology. BONES AND SOFT TISSUES: No acute pathology. RAD/Abdomen Single View (Portable) IMPRESSION: Multiple dilated loops of small bowel concerning for small bowel obstruction. No OG tube is visualized. Electronically Signed: Edwin Barbour MD at 23:04 EST Tel , Service support ,
--- NOTE | 2021-07-22 20:30 | RAD_ITS ---
INDICATION: OGT placement #2 EXAMINATION/TECHNIQUE: X-RAY - XR Abdomen 1 View COMPARISON: None FINDINGS: BOWEL GAS PATTERN: Non-obstructive. Multiple dilated loops of small bowel measuring up to 5.3 cm in diameter. There is an NG tube with tip in the stomach. FREE AIR: Not assessed on a single supine view. ORGANOMEGALY: Not seen. CALCIFICATIONS: No abnormal calcifications observed. LOWER CHEST: No acute pathology. BONES AND SOFT TISSUES: No acute pathology. RAD/Abdomen Single View (Portable) IMPRESSION: Multiple dilated loops of small bowel concerning for small bowel obstruction. Interval placement of NG tube with tip in stomach. Electronically Signed: Edwin Barbour MD at 23:03 EST Tel , Service support ,
[2021-07-22] MEDS: Propofol 10MG/Ml 1,000 MG/100 ML Bottle 6.7 MG CONT INF (20:50)
[2021-07-23] VITALS (36 sets, daily range): BP systolic 90–118; BP diastolic 38–78; PULSE 64–91; RESP 10–24; TEMP 35.8–36.4; O2SAT 96–100
--- NOTE | 2021-07-23 00:06 | PCM.HOSP.N ---
Hospitalist Note Patient with increased agitation, requiring increased propofol which had been decreased secondary to lower BP. MAP not target now, will start low dose NEP.
[2021-07-23] MEDS: Lactulose 20 GM/30 ML UDC 30 GM GT ×8 (02:03→17:56)
[2021-07-23 04:05] LABS: Absolute Lymphocyte Count 2.03 X10^3/uL (0.83-4.51); Absolute Neutrophil Count 12.1 X10^3/uL (2.0-7.7); Basophil# 0.06 X10^3/uL; Basophil% 0.4 % (0-1); Eosinophil# 0.24 X10^3/uL; Eosinophils% 1.5 % (0-5); Hematocrit 28.7 % (37-47); Hemoglobin 9.2 g/dL (12.0-15.0); Lymphocyte # 2.03 X10^3/ul (0.83-4.51); Lymphocyte % 12.5 % (19-41); Mean Corp Hgb Conc 32.1 g/dL (32-36); Mean Corpuscular Hgb 30.1 pg (27.0-32.0); Mean Corpuscular Volume 93.8 fL (81-99); Mean Platelet Vol. 10.3 fl (6.2-12.0); Monocyte# 1.81 X10^3/uL; Monocyte% 11.1 % (0-10); NRBC Flagged by Analyzer 0 % (0-5); Neutrophil # 12.08 X10^3/uL (2.7-7.7); Neutrophil % 74.1 % (47-70); POSITIVE DIFFERENTIAL YES; Platelet Count 180 K/mm3 (150-450); RBC Distribution Width SD 56.2 fl (35.1-43.9); Red Blood Count 3.06 M/mm3 (4.2-5.4); White Blood Count 16.3 K/mm3 (4.4-11.0)
[2021-07-23 04:23] LABS: Differential Indicated SCAN CRITERIA MET
[2021-07-23 04:37] LABS: ALB/GLOB Ratio 0.4 RATIO (0.9-2.4); AST(SGOT) 70 U/L (15-37); Alanine Aminotransfer ALT/SGPT 45 U/L (13-56); Albumin, Serum 1.6 g/dL (3.2-5.0); Alkaline Phosphatase 123 U/L (45-117); Anion Gap 8 (5-15); BUN 45 mg/dL (7-18); BUN/Creat Ratio 21.7 RATIO (10-20); Calcium,Total 8.2 mg/dL (8.5-10.1); Chloride 116 mmol/L (98-107); Creatinine, Serum 2.07 mg/dL (0.55-1.02); EST Glomerular Filtration Rate 25 mL/min (>60); Est Glom Filt Rate - Afr Amer 30 mL/min (>60); Estimated Creatinine Clearance 22.32 ml/min; Globulin 4.1 g/dL (2.2-4.2); Glucose 145 mg/dL (74-106); Potassium 3.4 mmol/L (3.5-5.1); Protein, Total 5.7 g/dL (6.4-8.2); Sodium Level 146 mmol/L (136-145)
[2021-07-23 04:57] LABS: Anisocytosis RARE; Differential Comment SCANNED; Macrocytosis RARE; Polychromasia RARE
--- NOTE | 2021-07-23 05:49 | PCM.PN.INT ---
Assessment & Plan Assessment/Plan (1) Altered mental status: (2) Acute respiratory failure: PLAN: RECOMMENDATIONS: 1. Continue assist control mode of mechanical ventilation. Wean FiO2 for saturations greater than 90%. 2. Continue aggressive treatment of hyperammonemia, with lactulose and rifaximin. 3. Transition current antimicrobials to Unasyn, given reported vomiting events. 4. Continue appropriate GI prophylaxis. 5. No plans for extubation until mentation improves. 6. Potassium repletion as ordered. 7. Continue midodrine per GI recommendations. IMPRESSIONS: 1. Acute respiratory failure The patient was initially intubated in the emergency department due to presenting encephalopathy and concern for airway protection. The patient has a history of end-stage liver disease but was not on lactulose or rifaximin. Her presenting encephalopathy is secondary to hyperammonemia due to her underlying liver dysfunction. Antibiotics will be continued in light of the patient's episodes of emesis. 2. Decompensated cirrhosis with associated hepatic encephalopathy The patient presented to the hospital in an unresponsive state secondary to hepatic encephalopathy. 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 Gastroenterology is currently following to assist with medical management. Continue rifaximin, lactulose and midodrine per GI recommendations. 3. Hypokalemia Electrolyte repletion as ordered. Recheck levels in the morning. 4. Acute kidney injury/anemia/advanced age Complicates care, management, recovery and prognosis. Continue supportive measures as noted above. TIME: 34 minutes of critical care time, independent of procedures, was spent addressing the patient's acute respiratory failure, decompensated cirrhosis, hepatic encephalopathy, review of all data and collaboration with the care team. Subjective Subjective The patient was seen and examined at the bedside this morning. Events from the last 24 hours have been reviewed. Today is vent day #3. The patient is currently afebrile, hemodynamically stable and maintaining appropriate oxygen saturations on assist control mode of mechanical ventilation with an FiO2 requirement of 25%. The patient was placed transiently on low-dose Levophed overnight due to some hemodynamic instability. She has since been weaned from vasopressor support. The patient underwent upper endoscopy yesterday which revealed evidence of reflux esophagitis and portal hypertensive gastropathy. The patient is documented to be overall net +2.6 L for the hospitalization. She did have a bowel movement finally this morning. Per nursing report, the patient did have several episodes of vomiting over the last 24 hours. Sodium is elevated this morning at 146 with a chloride of 116. Potassium is low at 3.4. Creatinine has increased to 2.07. Ammonia is still elevated at 185. Objective Data Objective Data The patient's most recent lab work, culture data and imaging studies have all been personally reviewed. Urine culture dated July 21 was positive for gram-negative da, which was below infection level. Sputum culture has not demonstrated any growth to date. Rapid coronavirus antigen testing was negative. Vital Signs: Vital Signs Temp Pulse Resp BP Pulse Ox 97.5 F L 89 17 114/61 99 07/23/21 05:00 07/23/21 05:06 07/23/21 05:06 07/23/21 05:00 07/23/21 05:06 Oxygen Delivery Method Mechanical Ventilator Weight: 107.7 kg Body Mass Index (BMI) 38.3 Intake & Output: Intake and Output for Last 24 Hours 07/21/21 07/22/21 07/23/21 23:59 23:59 23:59 Intake Total 2290.97 / 2310.97 1922.41 / 1934.91 115.10 / 115.10 Output Total 850 / 850 845 / 845 Balance 1440.97 / 1460.97 1077.41 / 1089.91 115.10 / 115.10 Lab / Micro Data Attestation: I reviewed the patient's lab results. Result Diagrams: 07/23/21 04:00 07/23/21 04:00 Labs: Laboratory Results - last 24 hr 07/22/21 07:22: WBC 11.7 H, RBC 2.95 L, Hgb 8.9 L, Hct 27.8 L, MCV 94.2, MCH 30.2, MCHC 32.0, RDW Std Deviation 56.1 H, RDW Coeff of [place] 16.7 H, Plt Count 159, MPV 9.9, Immature Gran % (Auto) 0.400, Neut % (Auto) 68.1, Lymph % (Auto) 18.0 L, [place] % (Auto) 11.1 H, Eos % (Auto) 1.9, Baso % (Auto) 0.5, Absolute Neuts (auto) 8.0 H, Absolute Lymphs (auto) 2.11, Nucleated RBC % 0 07/22/21 07:22: Ammonia 145.0 H 07/23/21 04:00: WBC 16.3 H, RBC 3.06 L, Hgb 9.2 L, Hct 28.7 L, MCV 93.8, MCH 30.1, MCHC 32.1, RDW Std Deviation 56.2 H, RDW Coeff of [place] 17.0 H, Plt Count 180, MPV 10.3, Immature Gran % (Auto) 0.400, Neut % (Auto) 74.1 H, Lymph % (Auto) 12.5 L, [place] % (Auto) 11.1 H, Eos % (Auto) 1.5, Baso % (Auto) 0.4, Absolute Neuts (auto) 12.1 H, Absolute Lymphs (auto) 2.03, Nucleated RBC % 0, Differential Comment SCANNED, Diff Path Review May foll, Polychromasia RARE, Anisocytosis RARE, Macrocytosis RARE 07/23/21 04:00: Sodium 146 H, Potassium 3.4 L, Chloride 116 H, Carbon Dioxide 22.0, Anion Gap 8, BUN 45 H, Creatinine 2.07 H, Estim Creat Clear Calc 22.32, Est GFR (MDRD) Af Amer 30 L, Est GFR (MDRD) Non-Af 25 L, BUN/Creatinine Ratio 21.7 H, Glucose 145 H, Calcium 8.2 L, Total Bilirubin 1.10 H, AST 70 H, ALT 45, Alkaline Phosphatase 123 H, Total Protein 5.7 L, Albumin 1.6 L, Globulin 4.1, Albumin/Globulin Ratio 0.4 L 07/23/21 04:00: Ammonia 185.0 H Micro: Microbiology 07/21/21 15:50 Sputum, Induced/Lukens Gram Stain - Final 07/21/21 15:50 Sputum, Induced/Lukens Respiratory Culture - Preliminary Culture exhibits no growth. 07/21/21 13:31 Urine Catheter - Drake Urine Culture - Preliminary GNR lactose food selector 07/21/21 13:31 Nasal Secretion SARS-CoV-2 Antigen (Rapid) - Final Radiography Diagnostic Testing: Radiology Impression KUB X-Ray 07/22/21 16:40 IMPRESSION: NG tube folded on itself in the distal esophagus with the tip pointing cephalad in the thoracic esophagus. The tube needs to be pulled back and readvanced. Diffuse small bowel and colonic dilatation, likely due to ileus. Multilevel thoracolumbar spondylosis. Osteoarthritis of the bilateral hip joints. Electronically Signed: Sheng Rey MD at 17:21 EST Tel , Service support , KUB X-Ray 07/22/21 18:20 IMPRESSION: OG tube coiled on itself in the stomach with the tip in the distal gastric body. Diffuse colonic and small bowel dilatation, including with ileus. Electronically Signed: Sheng Rey MD at 19:08 EST Tel , Service support , KUB X-Ray 07/22/21 20:11 IMPRESSION: Multiple dilated loops of small bowel concerning for small bowel obstruction. No OG tube is visualized. Electronically Signed: Edwin Barbour MD at 23:04 EST Tel , Service support , KUB X-Ray 07/22/21 20:30 IMPRESSION: Multiple dilated loops of small bowel concerning for small bowel obstruction. Interval placement of NG tube with tip in stomach. Electronically Signed: Edwin Barbour MD at 23:03 EST Tel , Service support , Physical Exam Const no apparent distress General Appearance: intubated and patient mechanically ventilated Nutritional Appearance: obese HEENT normocephalic Mouth: endotracheal tube in place and OG tube in place Eyes PERRL and EOMs intact bilaterally Neck supple General: trachea midline Resp Auscultation: diminished lung sounds; Negative for rales, rhonchi or wheezes Cardio regular rate and regular rhythm GI normal to inspection, nondistended, normoactive bowel sounds Extremity General Extremity: edema bilateral lower extremity Skin Skin Narrative: Facial bruising present. General Skin Exam: erythema, lichenification, venous stasis and dermatitis Neuro Sensorium / Orientation: sedated on vent Charges/Coding Procedures Hospitalists Procedures: 60738 Critial Care 1st Hr
[2021-07-23] MEDS: Midodrine HCl 5 MG Tablet GT ×3 (06:16→22:08)
[2021-07-23] MEDS: Nystatin Powder 15gm Bottle 1 APPLIC TOPICAL ×3 (06:17→22:09)
[2021-07-23] MEDS: Potassium Chloride 10mEq/100mL 10 MEQ/100 ML IV.SOLN. 100 MEQ IV BOLUS ×4 (06:50→11:18)
--- NOTE | 2021-07-23 07:48 | PCM.PN.HOSP ---
Subjective Subjective Patient underwent EGD on 07/22/[address] Moreland findings included : LA Grade C reflux esophagitis. ; Portal hypertensive gastropathy.; Normal second portion of the duodenum.. Per nursing staff patient has been having bouts of emesis around her NG. KUB obtained per nursing staff demonstrated multiple dilated loops of small bowel consistent with small bowel obstruction. An order has been given for patient NG tube to be placed to low continuous suction. Objective Data Objective Data Vital Signs: Vital Signs Temp Pulse Resp BP Pulse Ox 96.7 F L 73 11 L 107/48 L 100 07/23/21 07:00 07/23/21 07:00 07/23/21 07:00 07/23/21 07:00 07/23/21 07:00 Oxygen Delivery Method Mechanical Ventilator Weight: 109.2 kg Body Mass Index (BMI) 38.3 Intake & Output: Intake and Output for Last 24 Hours 07/21/21 07/22/21 07/23/21 23:59 23:59 23:59 Intake Total 2290.97 / 2310.97 1922.41 / 1934.91 115.10 / 115.10 Output Total 850 / 850 845 / 845 120 / 120 Balance 1440.97 / 1460.97 1077.41 / 1089.91 -4.90 / -4.90 Lab / Micro Data Result Diagrams: 07/23/21 04:00 07/23/21 04:00 Labs: Laboratory Results - last 24 hr 07/22/21 07:22: Ammonia 145.0 H 07/23/21 04:00: WBC 16.3 H, RBC 3.06 L, Hgb 9.2 L, Hct 28.7 L, MCV 93.8, MCH 30.1, MCHC 32.1, RDW Std Deviation 56.2 H, RDW Coeff of [place] 17.0 H, Plt Count 180, MPV 10.3, Immature Gran % (Auto) 0.400, Neut % (Auto) 74.1 H, Lymph % (Auto) 12.5 L, [place] % (Auto) 11.1 H, Eos % (Auto) 1.5, Baso % (Auto) 0.4, Absolute Neuts (auto) 12.1 H, Absolute Lymphs (auto) 2.03, Nucleated RBC % 0, Differential Comment SCANNED, Diff Path Review May foll, Polychromasia RARE, Anisocytosis RARE, Macrocytosis RARE 07/23/21 04:00: Sodium 146 H, Potassium 3.4 L, Chloride 116 H, Carbon Dioxide 22.0, Anion Gap 8, BUN 45 H, Creatinine 2.07 H, Estim Creat Clear Calc 22.32, Est GFR (MDRD) Af Amer 30 L, Est GFR (MDRD) Non-Af 25 L, BUN/Creatinine Ratio 21.7 H, Glucose 145 H, Calcium 8.2 L, Total Bilirubin 1.10 H, AST 70 H, ALT 45, Alkaline Phosphatase 123 H, Total Protein 5.7 L, Albumin 1.6 L, Globulin 4.1, Albumin/Globulin Ratio 0.4 L 07/23/21 04:00: Ammonia 185.0 H Micro: Microbiology 07/21/21 13:10 Blood Culture (Wb) - Right Hand Blood Culture - Preliminary No growth in 48 hours. 07/21/21 13:00 Blood Culture (Wb) - Right Hand Blood Culture - Preliminary No growth in 48 hours. 07/21/21 13:31 Urine Catheter - Drake Urine Culture - Final Klebsiella pneumoniae sp pneum 07/21/21 15:50 Sputum, Induced/Lukens Gram Stain - Final 07/21/21 15:50 Sputum, Induced/Lukens Respiratory Culture - Preliminary Culture exhibits no growth. 07/21/21 13:31 Nasal Secretion SARS-CoV-2 Antigen (Rapid) - Final Radiography Diagnostic Testing: Radiology Impression KUB X-Ray 07/22/21 16:40 IMPRESSION: NG tube folded on itself in the distal esophagus with the tip pointing cephalad in the thoracic esophagus. The tube needs to be pulled back and readvanced. Diffuse small bowel and colonic dilatation, likely due to ileus. Multilevel thoracolumbar spondylosis. Osteoarthritis of the bilateral hip joints. Electronically Signed: Sheng Rey MD at 17:21 EST Tel , Service support , KUB X-Ray 07/22/21 18:20 IMPRESSION: OG tube coiled on itself in the stomach with the tip in the distal gastric body. Diffuse colonic and small bowel dilatation, including with ileus. Electronically Signed: Sheng Rey MD at 19:08 EST Tel , Service support , KUB X-Ray 07/22/21 20:11 IMPRESSION: Multiple dilated loops of small bowel concerning for small bowel obstruction. No OG tube is visualized. Electronically Signed: Edwin Barbour MD at 23:04 EST Tel , Service support , KUB X-Ray 07/22/21 20:30 IMPRESSION: Multiple dilated loops of small bowel concerning for small bowel obstruction. Interval placement of NG tube with tip in stomach. Electronically Signed: Edwin Barbour MD at 23:03 EST Tel , Service support , Physical Exam Narrative GENERAL: Patient on the vent HEENT: Atraumatic; EYES; Anicteric, Normal Conjunctiva NECK; supple, normal thyroid, RESPIRATORY: Diminished to auscultation CARDIOVASCULAR: Regular S1 S2, GI: soft, normoactive bowel sounds, : No Renal angle tenderness; EXTREMITIES: Bipedal edema with stasis dermatitis MUSCULOSKELETAL: no muscle waisting NEURO: Patient on the vent SKIN: Areas of ecchymosis on both upper and lower extremities as well as face PSYCH; unable to assess with patient being on the vent Assessment & Plan Assessment/Plan (1) Altered mental status: (2) Cirrhosis of liver: (3) Acute kidney insufficiency: (4) Acidosis, lactic: PLAN: Patient is a 76-year-old lady with past medical history significant for cirrhosis of the liver admitted with altered mental status 1. Acute hepatic encephalopathy ? Patient has been admitted to the intensive care unit, patient started on lactulose with consultation placed to GI -07/22/2021 Patient seen remains on the vent. Was seen in consultation by Dr. Moreland with GI octreotide added to patient's therapy. Patient scheduled to undergo EGD to rule out upper GI bleed -07/23/2021; Patient underwent EGD on 07/22/[address] Moreland findings included : LA Grade C reflux esophagitis. ; Portal hypertensive gastropathy.; Normal second portion of the duodenum.. 2. Small bowel obstruction ? 07/23/2021; imaging studies obtained as a result of persistent bouts of emesis around her NG demonstrated multiple dilated loops of small bowel consistent with small bowel obstruction. An order has been given for patient NG tube to be placed to low continuous suction. 3. Acute hypoxic respiratory failure ? Secondary to above. There was a question of possible aspiration however there was no evidence of any infiltrate on patient's chest x-ray. Patient was intubated in the emergency department prior to admission consult placed to [employer] unified communications engineer for vent management -07/22/2021; patient remains on the vent -Patient still encephalopathic and undergoing vent 4. End-stage liver disease secondary to cirrhosis of the liver ? Patient presented with acute hepatic encephalopathy management as discussed above 5. Lactic acidosis ? Secondary to patient hepatic encephalopathy 6. Acute renal insufficiency ? Baseline creatinine unknown patient started on fluid with monitoring of electrolyte -07/23/2021 patient kidney function continues to worsen. Was reported to be hypotensive during the evening resuscitated with IV fluids 7. Anemia - Secondary to chronic disorder monitoring H&H and transfuse if patient becomes symptomatic or hemoglobin falls below 7. Patient to undergo subsequent evaluation with an upper EGD. Currently on octreotide and Protonix drip in addition to Rocephin 8. Essential hypertension ? Patient blood pressure on the low side antihypertensives held 9. DVT prophylaxis ? Patient initially prescribed Lovenox which was discontinued in view of significant anemia and suspected upper GI bleed 10. Acute cystitis ? Urine cultures grew Klebsiella pneumonia. Patient is on Rocephin Charges/Coding Visit Charges Inpatient E&M: 01661 [facility] Hosp L3
[2021-07-23] MEDS: Chlorhexidine 15 ML PO ×2 (08:23→22:07)
[2021-07-23] MEDS: Levothyroxine 25 MCG TABLET GT (09:44)
[2021-07-23] MEDS: rifAXIMin 550 MG Tablet GT ×2 (09:44→22:08)
[2021-07-23] MEDS: CHLORHEXIDINE GLUC 2% CLOTH 1 EACH TOWELETTE TOPICAL (09:45)
--- NOTE | 2021-07-23 16:57 | PN.GI_ITS ---
Subjective Subjective Patient still intubated and sedated. She has been having multiple bowel movements. She has been afebrile. She still making urine. Objective Data Objective Data Vital Signs: Vital Signs Temp Pulse Resp BP Pulse Ox 96.8 F L 77 13 102/47 L 98 07/23/21 12:00 07/23/21 15:00 07/23/21 15:00 07/23/21 15:00 07/23/21 15:00 Oxygen Delivery Method Mechanical Ventilator Weight: 240 lb 11.916 oz Body Mass Index (BMI) 38.3 Intake & Output: Intake and Output for Last 24 Hours 07/21/21 07/22/21 07/23/21 23:59 23:59 23:59 Intake Total 2290.97 / 2310.97 1922.41 / 1934.91 834.43 / 834.43 Output Total 850 / 850 845 / 845 120 / 120 Balance 1440.97 / 1460.97 1077.41 / 1089.91 714.43 / 714.43 Lab / Micro Data Result Diagrams: 07/23/21 04:00 07/23/21 04:00 Labs: Laboratory Results - last 24 hr 07/23/21 04:00: WBC 16.3 H, RBC 3.06 L, Hgb 9.2 L, Hct 28.7 L, MCV 93.8, MCH 30.1, MCHC 32.1, RDW Std Deviation 56.2 H, RDW Coeff of [place] 17.0 H, Plt Count 180, MPV 10.3, Immature Gran % (Auto) 0.400, Neut % (Auto) 74.1 H, Lymph % (Auto) 12.5 L, [place] % (Auto) 11.1 H, Eos % (Auto) 1.5, Baso % (Auto) 0.4, Absolute Neuts (auto) 12.1 H, Absolute Lymphs (auto) 2.03, Nucleated RBC % 0, Differential Comment SCANNED, Diff Path Review May foll, Polychromasia RARE, Anisocytosis RARE, Macrocytosis RARE 07/23/21 04:00: Sodium 146 H, Potassium 3.4 L, Chloride 116 H, Carbon Dioxide 22.0, Anion Gap 8, BUN 45 H, Creatinine 2.07 H, Estim Creat Clear Calc 22.32, Est GFR (MDRD) Af Amer 30 L, Est GFR (MDRD) Non-Af 25 L, BUN/Creatinine Ratio 2 1.7 H, Glucose 145 H, Calcium 8.2 L, Total Bilirubin 1.10 H, AST 70 H, ALT 45, Alkaline Phosphatase 123 H, Total Protein 5.7 L, Albumin 1.6 L, Globulin 4.1, Albumin/Globulin Ratio 0.4 L 07/23/21 04:00: Ammonia 185.0 H Micro: Microbiology 07/21/21 15:50 Sputum, Induced/Lukens Gram Stain - Final 07/21/21 15:50 Sputum, Induced/Lukens Respiratory Culture - Preliminary Alpha Hemolytic Streptococcus 07/21/21 13:10 Blood Culture (Wb) - Right Hand Blood Culture - Preliminary No growth in 48 hours. 07/21/21 13:00 Blood Culture (Wb) - Right Hand Blood Culture - Preliminary No growth in 48 hours. 07/21/21 13:31 Urine Catheter - Drake Urine Culture - Final Klebsiella pneumoniae sp pneum 07/21/21 13:31 Nasal Secretion SARS-CoV-2 Antigen (Rapid) - Final Radiography Diagnostic Testing: Radiology Impression KUB X-Ray 07/22/21 16:40 IMPRESSION: NG tube folded on itself in the distal esophagus with the tip pointing cephalad in the thoracic esophagus. The tube needs to be pulled back and readvanced. Diffuse small bowel and colonic dilatation, likely due to ileus. Multilevel thoracolumbar spondylosis. Osteoarthritis of the bilateral hip joints. Electronically Signed: Sheng Rey MD at 17:21 EST Tel , Service support , KUB X-Ray 07/22/21 18:20 IMPRESSION: OG tube coiled on itself in the stomach with the tip in the distal gastric body. Diffuse colonic and small bowel dilatation, including with ileus. Electronically Signed: Sheng Rey MD at 19:08 EST Tel , Service support , KUB X-Ray 07/22/21 20:11 IMPRESSION: Multiple dilated loops of small bowel concerning for small bowel obstruction. No OG tube is visualized. Electronically Signed: Edwin Barbour MD at 23:04 EST Tel , Service support , KUB X-Ray 07/22/21 20:30 IMPRESSION: Multiple dilated loops of small bowel concerning for small bowel obstruction. Interval placement of NG tube with tip in stomach. Electronically Signed: Edwin Barbour MD at 23:03 EST Tel , Service support , Physical Exam Const no apparent distress Eyes Eyes Narrative: Mild scleral icterus Pupil: not reactive and sluggish Resp Effort and Inspection: symmetric chest movement Cardio Rate: regular rate Rhythm: regular rhythm GI Auscultation: normoactive bowel sounds Assessment & Plan Assessment/Plan (1) Hepatic encephalopathy: PLAN: Patient is on every 2 lactulose. She is having bowel movements. Her last ammonia level was 185 which is up from 145. She will get a ammonia level redrawn at this time. If it has not gone down to less than 100 then we will continue the current every 2 hour schedule for lactulose. If it has gone down to 100 then she can be switched to every 4 hours. 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 Complicated by portal gastropathy, hepatic encephalopathy and now possible hepatorenal syndrome. She has not shown any signs of significant ascites. However her white blood cell count is increasing. We may have to get a bedside ultrasound and perform a diagnostic paracentesis if her white blood cell count continues to increase. (3) Hepatorenal syndrome: PLAN: Multifactorial likely secondary to hepatic encephalopathy could also be from pressors, acute kidney injury secondary to SBP, hypoperfusion causing ATN. She is on midodrine, will start octreotide. (4) Anemia: PLAN: Blood loss anemia secondary to portal gastropathy. Hemoglobin seems to be stable at this time. Charges/Coding Visit Charges Inpatient E&M: 46058 Subs Hosp L3
[2021-07-23] MEDS: Lactulose 20 GM/30 ML UDC GT (22:08)
[2021-07-23] MEDS: 0.9% Saline Lock 10 ML Syringe IV (22:08)
[2021-07-24] VITALS (37 sets, daily range): BP systolic 87–146; BP diastolic 42–83; PULSE 16–104; RESP 11–27; TEMP 35.9–36.5; O2SAT 91–100
[2021-07-24 00:25] LABS: Bedside Glucose 115 mg/dL (70-110)
[2021-07-24] MEDS: Lactulose 20 GM/30 ML UDC GT ×6 (01:17→21:37)
[2021-07-24 03:36] LABS: Absolute Lymphocyte Count 1.84 X10^3/uL (0.83-4.51); Absolute Neutrophil Count 7.2 X10^3/uL (2.0-7.7); Basophil# 0.03 X10^3/uL; Basophil% 0.3 % (0-1); Hematocrit 25.6 % (37-47); Hemoglobin 8.1 g/dL (12.0-15.0); Lymphocyte # 1.84 X10^3/ul (0.83-4.51); Lymphocyte % 17.6 % (19-41); Mean Corp Hgb Conc 31.6 g/dL (32-36); Mean Corpuscular Hgb 30.7 pg (27.0-32.0); Mean Platelet Vol. 10.5 fl (6.2-12.0); Monocyte% 11.5 % (0-10); NRBC Flagged by Analyzer 0 % (0-5); Neutrophil # 7.23 X10^3/uL (2.7-7.7); Neutrophil % 69.3 % (47-70); Platelet Count 125 K/mm3 (150-450); RBC Distribution Width CV 17.1 % (11.6-14.6); RBC Distribution Width SD 58.9 fl (35.1-43.9); Red Blood Count 2.64 M/mm3 (4.2-5.4); White Blood Count 10.4 K/mm3 (4.4-11.0)
[2021-07-24 04:16] LABS: ALB/GLOB Ratio 0.4 RATIO (0.9-2.4); AST(SGOT) 54 U/L (15-37); Alanine Aminotransfer ALT/SGPT 38 U/L (13-56); Albumin, Serum 1.4 g/dL (3.2-5.0); Alkaline Phosphatase 103 U/L (45-117); Anion Gap 9 (5-15); BUN 44 mg/dL (7-18); BUN/Creat Ratio 22.4 RATIO (10-20); Calcium,Total 7.8 mg/dL (8.5-10.1); Chloride 118 mmol/L (98-107); Creatinine, Serum 1.96 mg/dL (0.55-1.02); EST Glomerular Filtration Rate 27 mL/min (>60); Est Glom Filt Rate - Afr Amer 32 mL/min (>60); Estimated Creatinine Clearance 23.57 ml/min; Globulin 3.6 g/dL (2.2-4.2); Glucose 235 mg/dL (74-106); Sodium Level 148 mmol/L (136-145)
[2021-07-24] MEDS: CHLORHEXIDINE GLUC 2% CLOTH 1 EACH TOWELETTE TOPICAL (05:40)
[2021-07-24] MEDS: Nystatin Powder 15gm Bottle 1 APPLIC TOPICAL ×3 (05:41→21:38)
[2021-07-24] MEDS: Midodrine HCl 5 MG Tablet GT ×3 (05:41→21:38)
[2021-07-24] MEDS: TITRATION PARAMETER CHANGE 1 EACH IV (06:16)
[2021-07-24] MEDS: Potassium Chloride Oral Soln 20 MEQ/15 ML UDC 40 MEQ PO ×2 (06:17→21:37)
[2021-07-24 06:20] LABS: Bedside Glucose 118 mg/dL (70-110)
[2021-07-24 07:20] LABS: Allen Test Positive; Base Excess -4 mmol/L (-2 to +2); Bicarbonate 20.1 mmol/L (22-26); Blood Gas Specimen Type ART; FI02 21; Mode CPAP/PS; O2 Delivery Device Adult Vent; PEEP 5; PO2 81 mmHG (75-100); PS 5; SITE L Radial; SO2 97 % (95-99); Total Carbon Dioxide 21 mmol/L; pCO2 28.5 mmHg (35-45); pH 7.46 (7.35-7.45)
--- NOTE | 2021-07-24 07:20 | PCM.PN.INT ---
Assessment & Plan Assessment/Plan (1) Altered mental status: (2) Acute respiratory failure: PLAN: RECOMMENDATIONS: 1. Continue assist control mode of mechanical ventilation. Wean FiO2 for saturations greater than 90%. 2. Continue aggressive treatment of hyperammonemia, with lactulose and rifaximin. 3. Transition current antimicrobials to Unasyn, given reported vomiting events. Anticipate 7 days of therapy 4. Continue appropriate GI prophylaxis. 5. No plans for extubation until mentation improves. 6. Potassium repletion as ordered. 7. Continue midodrine per GI recommendations. IMPRESSIONS: 1. Acute respiratory failure The patient was initially intubated in the emergency department due to presenting encephalopathy and concern for airway protection. The patient has a history of end-stage liver disease but was not on lactulose or rifaximin. Her presenting encephalopathy is secondary to hyperammonemia due to her underlying liver dysfunction. Antibiotics will be continued in light of the patient's episodes of emesis. ABG after spontaneous breathing trial this morning shows adequate oxygenation ventilation. Still awaiting improvement in mentation prior to extubation 2. Decompensated cirrhosis with associated hepatic encephalopathy/thrombocytopenia The patient presented to the hospital in an unresponsive state secondary to hepatic encephalopathy. 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 Gastroenterology is currently following to assist with medical management. Continue rifaximin, lactulose and midodrine per GI recommendations. Patient also has a normocytic anemia 3. Hypokalemia/hyperkalemia/hypochloremia/non-anion gap metabolic acidosis Electrolyte repletion as ordered. Recheck levels in the morning. We will increase free water flushes slightly 4. Acute kidney injury/anemia/advanced age Complicates care, management, recovery and prognosis. Continue supportive measures as noted above. TIME: 33 minutes of critical care time, independent of procedures, was spent addressing the patient's acute respiratory failure, decompensated cirrhosis, hepatic encephalopathy, review of all data and collaboration with the care team. Subjective Subjective Patient did okay overnight. Patient does remain on octreotide via GI. Patient did get transition to Unasyn with improvement in white count. Patient will open her eyes to voice, but is not following commands. Objective Data Objective Data Vital Signs: Vital Signs Temp Pulse Resp BP Pulse Ox 35.9 C L 71 11 L 122/57 H 98 07/24/21 07:00 07/24/21 07:06 07/24/21 07:06 07/24/21 07:00 07/24/21 07:06 Oxygen Delivery Method Mechanical Ventilator Weight: 109.1 kg Body Mass Index (BMI) 38.3 Intake & Output: Intake and Output for Last 24 Hours 07/22/21 07/23/21 07/24/21 23:59 23:59 23:59 Intake Total 1922.41 / 1934.91 1092.76 / 1219.76 492 / 492 Output Total 845 / 845 1470 / 1670 1100 / 1100 Balance 1077.41 / 1089.91 -377.24 / -450.24 -608 / -608 Lab / Micro Data Result Diagrams: 07/24/21 03:20 07/24/21 03:20 Labs: Laboratory Results - last 24 hr 07/23/21 17:15: Ammonia 74.0 H 07/24/21 00:21: POC Glucose 115 H 07/24/21 03:20: WBC 10.4, RBC 2.64 L, Hgb 8.1 L, Hct 25.6 L, MCV 97.0, MCH 30.7, MCHC 31.6 L, RDW Std Deviation 58.9 H, RDW Coeff of [place] 17.1 H, Plt Count 125 L, MPV 10.5, Immature Gran % (Auto) 0.300, Neut % (Auto) 69.3, Lymph % (Auto) 17.6 L, [place] % (Auto) 11.5 H, Eos % (Auto) 1.0, Baso % (Auto) 0.3, Absolute Neuts (auto) 7.2, Absolute Lymphs (auto) 1.84, Nucleated RBC % 0 07/24/21 03:20: Sodium 148 H, Potassium 3.0 L, Chloride 118 H, Carbon Dioxide 21.0, Anion Gap 9, BUN 44 H, Creatinine 1.96 H, Estim Creat Clear Calc 23.57, Est GFR (MDRD) Af Amer 32 L, Est GFR (MDRD) Non-Af 27 L, BUN/Creatinine Ratio 22.4 H, Glucose 235 H, Calcium 7.8 L, Total Bilirubin 1.00, AST 54 H, ALT 38, Alkaline Phosphatase 103, Total Protein 5.0 L, Albumin 1.4 L, Globulin 3.6, Albumin/Globulin Ratio 0.4 L 07/24/21 03:20: Ammonia 35.0 H 07/24/21 06:12: POC Glucose 118 H Micro: Microbiology 07/21/21 15:50 Sputum, Induced/Lukens Gram Stain - Final 07/21/21 15:50 Sputum, Induced/Lukens Respiratory Culture - Preliminary Alpha Hemolytic Streptococcus 07/21/21 13:10 Blood Culture (Wb) - Right Hand Blood Culture - Preliminary No growth in 48 hours. 07/21/21 13:00 Blood Culture (Wb) - Right Hand Blood Culture - Preliminary No growth in 48 hours. 07/21/21 13:31 Urine Catheter - Drake Urine Culture - Final Klebsiella pneumoniae sp pneum 07/21/21 13:31 Nasal Secretion SARS-CoV-2 Antigen (Rapid) - Final Physical Exam Const no apparent distress Constitutional Narrative: Good vent synchrony General Appearance: intubated and patient mechanically ventilated Nutritional Appearance: obese HEENT normocephalic Mouth: endotracheal tube in place and OG tube in place Eyes PERRL and EOMs intact bilaterally Eyes Narrative: Mild scleral icterus Neck supple General: trachea midline Resp Auscultation: diminished lung sounds; Negative for rales, rhonchi or wheezes Cardio regular rate and regular rhythm GI normal to inspection, nondistended, normoactive bowel sounds Extremity General Extremity: edema bilateral lower extremity Skin Skin Narrative: Facial bruising present. General Skin Exam: erythema, lichenification, venous stasis and dermatitis Neuro Sensorium / Orientation: sedated on vent Charges/Coding Procedures Hospitalists Procedures: [id number] [facility] 1st Hr
--- NOTE | 2021-07-24 07:49 | PN.HOSP_ITS ---
Subjective Subjective Follow-up on acute hepatic encephalopathy/TWAN: Patient was seen and examined. She remains intubated. No acute events overnight. Has copious amount of feces in the FMS. Objective Data Objective Data Vital Signs: Vital Signs Temp Pulse Resp BP Pulse Ox 96.6 F L 71 11 L 122/57 H 98 07/24/21 07:00 07/24/21 07:06 07/24/21 07:06 07/24/21 07:00 07/24/21 07:06 Oxygen Delivery Method Mechanical Ventilator Weight: 109.1 kg Body Mass Index (BMI) 38.3 Intake & Output: Intake and Output for Last 24 Hours 07/22/21 07/23/21 07/24/21 23:59 23:59 23:59 Intake Total 1922.41 / 1934.91 1092.76 / 1219.76 492 / 492 Output Total 845 / 845 1470 / 1670 1100 / 1100 Balance 1077.41 / 1089.91 -377.24 / -450.24 -608 / -608 Lab / Micro Data Result Diagrams: 07/24/21 03:20 07/24/21 03:20 Labs: Laboratory Results - last 24 hr 07/23/21 17:15: Ammonia 74.0 H 07/24/21 00:21: POC Glucose 115 H 07/24/21 03:20: WBC 10.4, RBC 2.64 L, Hgb 8.1 L, Hct 25.6 L, MCV 97.0, MCH 30.7, MCHC 31.6 L, RDW Std Deviation 58.9 H, RDW Coeff of [place] 17.1 H, Plt Count 125 L, MPV 10.5, Immature Gran % (Auto) 0.300, Neut % (Auto) 69.3, Lymph % (Auto) 17.6 L, [place] % (Auto) 11.5 H, Eos % (Auto) 1.0, Baso % (Auto) 0.3, Absolute Neuts (auto) 7.2, Absolute Lymphs (auto) 1.84, Nucleated RBC % 0 07/24/21 03:20: Sodium 148 H, Potassium 3.0 L, Chloride 118 H, Carbon Dioxide 21.0, Anion Gap 9, BUN 44 H, Creatinine 1.96 H, Estim Creat Clear Calc 23.57, Est GFR (MDRD) Af Amer 32 L, Est GFR (MDRD) Non-Af 27 L, BUN/Creatinine Ratio 22.4 H, Glucose 235 H, Calcium 7.8 L, Total Bilirubin 1.00, AST 54 H, ALT 38, Alkaline Phosphatase 103, Total Protein 5.0 L, Albumin 1.4 L, Globulin 3.6, Albumin/Globulin Ratio 0.4 L 07/24/21 03:20: Ammonia 35.0 H 07/24/21 06:12: POC Glucose 118 H Micro: Microbiology 07/21/21 15:50 Sputum, Induced/Lukens Gram Stain - Final 07/21/21 15:50 Sputum, Induced/Lukens Respiratory Culture - Preliminary Alpha Hemolytic Streptococcus 07/21/21 13:10 Blood Culture (Wb) - Right Hand Blood Culture - Preliminary No growth in 48 hours. 07/21/21 13:00 Blood Culture (Wb) - Right Hand Blood Culture - Preliminary No growth in 48 hours. 07/21/21 13:31 Urine Catheter - Drake Urine Culture - Final Klebsiella pneumoniae sp pneum 07/21/21 13:31 Nasal Secretion SARS-CoV-2 Antigen (Rapid) - Final ABG Data ABG results: ABG 07/24/21 07:18 Specimen Type ART Sample Site L Radial pH 7.46 H Bicarbonate Actual 20.1 L Total CO2 21 Base Excess -4 L O2 Saturation 97 O2 % 21 ABG pCO2 28.5 L ABG pO2 81 Randolph Test Positive O2 Delivery Device Adult Vent Vent Mode CPAP/PS POC PEEP 5 POC Pressure Suppt 5 Physical Exam Narrative Physical exam: General: Intubated, on mechanical ventilator HEENT: Atraumatic, ET and OG tube insitu Oral: Moist Mucosa Neck: Supple Lungs: Diminished to auscultation Cardiovascular: HS I+II, regular, no murmurs Abdomen: Bowel Sounds Present, Soft, Non Tender Extremities: Bilateral leg edema +3 with chronic venous stasis dermatitis Assessment & Plan Assessment/Plan (1) Altered mental status: (2) Cirrhosis of liver: (3) Acute kidney insufficiency: (4) Acidosis, lactic: PLAN: 1. Acute hypoxic respiratory failure secondary to #2, possible aspiration pneumonitis Patient intubated on account of worsening encephalopathy for primary airway protection Remains intubated, on mechanical ventilator, on minimal oxygen requirement Continue on IV Unasyn [place] following 2. Acute hepatic encephalopathy, patient with underlying history of end-stage liver disease/cirrhosis secondary to STEARNS. Ammonia level is decreasing; currently 35 EGD done on 07/22/21 shows LA Grade C reflux esophagitis, portal hypertensive gastropathy, normal second portion of the duodenum.. Continue with lactulose, octreotide, PPI, rifaximin GI following 3. Small bowel obstruction, status post NG tube Patient having lots of bowel movements Continue to monitor 4. Hypotension, unclear etiology for for now likely related to medication side effect/dehydration from diarrhea Patient received fluid boluses, on Levophed Continue midodrine Continue to wean off for MAP more than 65 5. Hypokalemia, replaced, recheck in a.m. 6. TWAN on CKD stage IIIb, creatinine slightly improved today at 1.96 from 2.07 Continue to trend 7. Acute Klebsiella UTI, was on IV ceftriaxone, received for 2 doses 8. Rest of chronic medical conditions including hypothyroidism, obesity remained stable 9. DVT PPx- Lovenox Sc Charges/Coding Visit Charges Inpatient E&M: 13876 Subs Hosp L3
[2021-07-24] MEDS: Levothyroxine 25 MCG TABLET GT (09:39)
[2021-07-24] MEDS: Chlorhexidine 15 ML PO ×2 (10:18→21:36)
--- NOTE | 2021-07-24 12:13 | CASEMGMT ---
Addendum entered by Ellen Baeza 07/24/21 16:38: Please note the son SW spoke w/earlier was Von and not Thom. CARRIE Gage Original Note: Social Work SW participated in ICU rounds this morning. SW spoke w/Brigida at [facility]. She states they can take pt back when ready. SW spoke w/son Thom in room in regard to discharge plan. He states he and pt's daughter do not want pt returning to [facility]. Son states they put her in the corner and forgot about her. SW provided to son a list of jail facilities in [place] and surrounding [facility], that take pt's insurance, complete with quality and resource use data. SW offered to also get them a list of the [place] area, as pt's daughter lives there. Son declined. SW asked son for either he or pt's daughter to let this SW know where they would like a referral sent. Son states understanding. SW called Brigida at [facility], let her know that family may be making a change to a different facility, will let her know. SW will continue to follow. Plan: SNF, short term, facility to be determined. CARRIE Gage
[2021-07-24] MEDS: Enoxaparin 30 MG/0.3 ML Syringe SC (12:22)
[2021-07-24 14:20] LABS: Pathologist Review Reviewed
--- NOTE | 2021-07-24 16:43 | CASEMGMT ---
Social Work SW received call back from son Heron in regard to SNF choices. He asked about [facility]. SW called, they are not taking pts at this time. SW let son know, asked family to pick another option. Son will get back to this SW. CARRIE Gage
--- NOTE | 2021-07-24 17:25 | PCM.PROGNOTE ---
Subjective Subjective Patient still with is on a ventilator. She has had multiple bowel movements and her ammonia level is down to 35. She is making good urine output. Objective Data Objective Data Vital Signs: Vital Signs Temp Pulse Resp BP Pulse Ox 97.0 F L 96 16 103/59 L 97 07/24/21 16:00 07/24/21 17:00 07/24/21 17:00 07/24/21 17:00 07/24/21 17:00 Oxygen Flow Rate (L/min) 21 Oxygen Delivery Method Mechanical Ventilator Weight: 240 lb 8.389 oz Body Mass Index (BMI) 38.3 Intake & Output: Intake and Output for Last 24 Hours 07/22/21 07/23/21 07/24/21 23:59 23:59 23:59 Intake Total 1922.41 / 1934.91 1092.76 / 1219.76 1047.58 / 1047.58 Output Total 845 / 845 1470 / 1670 1200 / 1200 Balance 1077.41 / 1089.91 -377.24 / -450.24 -152.42 / -152.42 Lab / Micro Data Result Diagrams: 07/24/21 03:20 07/24/21 03:20 Labs: Laboratory Results - last 24 hr 07/23/21 04:00: Diff Path Review Reviewed 07/23/21 17:15: Ammonia 74.0 H 07/24/21 00:21: POC Glucose 115 H 07/24/21 03:20: WBC 10.4, RBC 2.64 L, Hgb 8.1 L, Hct 25.6 L, MCV 97.0, MCH 30.7, MCHC 31.6 L, RDW Std Deviation 58.9 H, RDW Coeff of [place] 17.1 H, Plt Count 125 L, MPV 10.5, Immature Gran % (Auto) 0.300, Neut % (Auto) 69.3, Lymph % (Auto) 17.6 L, [place] % (Auto) 11.5 H, Eos % (Auto) 1.0, Baso % (Auto) 0.3, Absolute Neuts (auto) 7.2, Absolute Lymphs (auto) 1.84, Nucleated RBC % 0 07/24/21 03:20: Sodium 148 H, Potassium 3.0 L, Chloride 118 H, Carbon Dioxide 21.0, Anion Gap 9, BUN 44 H, Creatinine 1.96 H, Estim Creat Clear Calc 23.57, Est GFR (MDRD) Af Amer 32 L, Est GFR (MDRD) Non-Af 27 L, BUN/Creatinine Ratio 22.4 H, Glucose 235 H, Calcium 7.8 L, Total Bilirubin 1.00, AST 54 H, ALT 38, Alkaline Phosphatase 103, Total Protein 5.0 L, Albumin 1.4 L, Globulin 3.6, Albumin/Globulin Ratio 0.4 L 07/24/21 03:20: Ammonia 35.0 H 07/24/21 06:12: POC Glucose 118 H Micro: Microbiology 07/21/21 15:50 Sputum, Induced/Lukens Gram Stain - Final 07/21/21 15:50 Sputum, Induced/Lukens Respiratory Culture - Final 07/21/21 13:10 Blood Culture (Wb) - Right Hand Blood Culture - Preliminary No growth in 48 hours. 07/21/21 13:00 Blood Culture (Wb) - Right Hand Blood Culture - Preliminary No growth in 48 hours. 07/21/21 13:31 Urine Catheter - Drake Urine Culture - Final Klebsiella pneumoniae sp pneum 07/21/21 13:31 Nasal Secretion SARS-CoV-2 Antigen (Rapid) - Final ABG Data ABG results: ABG 07/24/21 07:18 Specimen Type ART Sample Site L Radial pH 7.46 H Bicarbonate Actual 20.1 L Total CO2 21 Base Excess -4 L O2 Saturation 97 O2 % 21 ABG pCO2 28.5 L ABG pO2 81 Randolph Test Positive O2 Delivery Device Adult Vent Vent Mode CPAP/PS POC PEEP 5 POC Pressure Suppt 5 Physical Exam HEENT HEENT Narrative: Multiple hematomas throughout her face Head and Scalp: normal to inspection Face and Sinus: face symmetric Nose: external nose normal Mouth: oral and palatal mucosa normal Eyes conjunctivae normal General Eye: normal appearance of both eyes Neck full ROM General: normal visual inspection Lymph Lymphatic: no lymphadenopathy noted Chest inspection of chest normal and palpation of chest normal Chest: symmetrical chest wall rise Resp normal respiratory effort Cardio regular rate GI non-distended Percussion: normal to percussion Rectal Exam: deferred Extremity Extremity Narrative: Chronic venous stasis with stasis dermatitis and 1+ pitting edema Neuro Speech: speech normal Gait (Neuro): normal gait Assessment & Plan Assessment/Plan (1) Hepatorenal syndrome: PLAN: Patient kidney function is getting a little bit better. She was started on octreotide and midodrine for hepatorenal syndrome type II. Recommend to continue current medication regimen for hepatorenal syndrome. (2) Hepatic encephalopathy: PLAN: Her ammonia level is down to 35 which is down from 185. She can go on lactulose every 6 hours. (3) Cirrhosis of liver: PLAN: . No other signs of decompensation at this time. No clear ascites, hepatic hydrothorax or signs of active GI bleeding. Her hemoglobin is down to 8.1 that I am hoping is mostly dilutional. There is no signs of active GI bleeding at this time. Continue PPI therapy. Charges/Coding Visit Charges Inpatient E&M: 04224 Subs Hosp L3
--- NOTE | 2021-07-24 20:52 | NURSING ---
Started my shift w/Fentanyl drip at 150mcg/min, last charted at 100mcg by previous RN.
[2021-07-24] MEDS: rifAXIMin 550 MG Tablet GT (21:38)
[2021-07-25] VITALS (45 sets, daily range): BP systolic 65–140; BP diastolic 36–120; PULSE 35–102; RESP 15–21; TEMP 34.8–37.3; O2SAT 92–98
[2021-07-25] MEDS: CHLORHEXIDINE GLUC 2% CLOTH 1 EACH TOWELETTE TOPICAL (01:12)
[2021-07-25] MEDS: Lactulose 20 GM/30 ML UDC GT ×2 (01:12→06:39)
[2021-07-25 04:17] LABS: Absolute Lymphocyte Count 1.99 X10^3/uL (0.83-4.51); Absolute Neutrophil Count 8.9 X10^3/uL (2.0-7.7); Basophil# 0.02 X10^3/uL; Basophil% 0.2 % (0-1); Eosinophils% 0.8 % (0-5); Hematocrit 26.1 % (37-47); Hemoglobin 8.2 g/dL (12.0-15.0); Lymphocyte # 1.99 X10^3/ul (0.83-4.51); Lymphocyte % 15.5 % (19-41); Mean Corp Hgb Conc 31.4 g/dL (32-36); Mean Corpuscular Hgb 30.6 pg (27.0-32.0); Mean Corpuscular Volume 97.4 fL (81-99); Mean Platelet Vol. 10.5 fl (6.2-12.0); Monocyte# 1.74 X10^3/uL; Monocyte% 13.6 % (0-10); NRBC Flagged by Analyzer 0 % (0-5); Neutrophil # 8.92 X10^3/uL (2.7-7.7); Neutrophil % 69.4 % (47-70); POSITIVE DIFFERENTIAL YES; Platelet Count 129 K/mm3 (150-450); RBC Distribution Width CV 17.2 % (11.6-14.6); RBC Distribution Width SD 59.8 fl (35.1-43.9); Red Blood Count 2.68 M/mm3 (4.2-5.4); White Blood Count 12.8 K/mm3 (4.4-11.0)
[2021-07-25 04:23] LABS: Differential Indicated SCAN CRITERIA MET
[2021-07-25 04:34] LABS: ALB/GLOB Ratio 0.4 RATIO (0.9-2.4); AST(SGOT) 69 U/L (15-37); Alanine Aminotransfer ALT/SGPT 44 U/L (13-56); Albumin, Serum 1.6 g/dL (3.2-5.0); Alkaline Phosphatase 111 U/L (45-117); Anion Gap 9 (5-15); BUN 44 mg/dL (7-18); BUN/Creat Ratio 23.2 RATIO (10-20); Calcium,Total 8.3 mg/dL (8.5-10.1); Chloride 124 mmol/L (98-107); EST Glomerular Filtration Rate 27 mL/min (>60); Est Glom Filt Rate - Afr Amer 33 mL/min (>60); Estimated Creatinine Clearance 24.32 ml/min; Globulin 3.8 g/dL (2.2-4.2); Glucose 110 mg/dL (74-106); Potassium 3.4 mmol/L (3.5-5.1); Protein, Total 5.4 g/dL (6.4-8.2); Sodium Level 153 mmol/L (136-145)
[2021-07-25 04:36] LABS: Magnesium 2.1 mg/dL (1.6-2.6)
[2021-07-25] MEDS: Enoxaparin 30 MG/0.3 ML Syringe SC (05:04)
[2021-07-25] MEDS: 0.9% Saline Lock 10 ML Syringe IV (05:04)
[2021-07-25] MEDS: Midodrine HCl 5 MG Tablet GT ×3 (05:05→21:54)
[2021-07-25] MEDS: Nystatin Powder 15gm Bottle 1 APPLIC TOPICAL ×3 (05:05→21:57)
[2021-07-25 05:08] LABS: Differential Comment SCANNED
--- NOTE | 2021-07-25 05:09 | NURSING ---
0500: Pt's fentanyl reduced to 50mcg/min for SBT.
[2021-07-25 06:10] LABS: Base Excess -8 mmol/L (-2 to +2); Bicarbonate 16.8 mmol/L (22-26); Blood Gas Specimen Type ART; FI02 21; Mode PS; O2 Delivery Device Adult Vent; PEEP 5; PO2 61 mmHG (75-100); PS 5; SITE R Radial; SO2 92 % (95-99); Total Carbon Dioxide 18 mmol/L; pH 7.44 (7.35-7.45)
[2021-07-25] MEDS: Potassium Chloride Oral Soln 20 MEQ/15 ML UDC 40 MEQ PO ×2 (06:41→08:42)
--- NOTE | 2021-07-25 06:57 | PCM.PN.INT ---
Assessment & Plan Assessment/Plan (1) Altered mental status: (2) Acute respiratory failure: PLAN: RECOMMENDATIONS: 1. Continue assist control mode of mechanical ventilation. Wean FiO2 for saturations greater than 90%. 2. Continue lactulose and rifaximin per GI. 3. Transition current antimicrobials to Unasyn, given reported vomiting events. Anticipate 7 days of therapy 4. Continue appropriate GI prophylaxis. 5. No plans for extubation until mentation improves. 6. Potassium repletion as ordered. Add D5W for 24 hours given hypernatremia 7. Continue midodrine per GI recommendations. IMPRESSIONS: 1. Acute respiratory failure The patient was initially intubated in the emergency department due to presenting encephalopathy and concern for airway protection. The patient has a history of end-stage liver disease but was not on lactulose or rifaximin. Her presenting encephalopathy is secondary to hyperammonemia due to her underlying liver dysfunction. Antibiotics will be continued in light of the patient's episodes of emesis. ABG after spontaneous breathing trial this morning shows adequate oxygenation ventilation. Still awaiting improvement in mentation prior to extubation 2. Decompensated cirrhosis with associated hepatic encephalopathy/thrombocytopenia The patient presented to the hospital in an unresponsive state secondary to hepatic encephalopathy. 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 Gastroenterology is currently following to assist with medical management. Continue rifaximin, lactulose and midodrine per GI recommendations. Patient also has a normocytic anemia 3. Hypokalemia/hyperkalemia/hyperchloremia/non-anion gap metabolic acidosis Electrolyte repletion as ordered. Recheck levels in the morning. Patient not responsive to increased free water flushes. We will add D5W for 24 hours. 4. Acute kidney injury/anemia/advanced age Complicates care, management, recovery and prognosis. Continue supportive measures as noted above. TIME: 35 minutes of critical care time, independent of procedures, was spent addressing the patient's acute respiratory failure, decompensated cirrhosis, hepatic encephalopathy, review of all data and collaboration with the care team. Subjective Subjective Patient did okay overnight. Patient is opening her eyes more than previous, but still not following commands. Patient was able to tolerate a spontaneous breathing trial this morning and ABG showed adequate oxygenation and ventilation. Patient has had some longer QT overnight. Patient remains on fentanyl. Still with liquid bowel movements noted through FMS. Objective Data Objective Data Vital Signs: Vital Signs Temp Pulse Resp BP Pulse Ox 36.6 C 99 18 113/38 L 96 07/25/21 06:50 07/25/21 06:50 07/25/21 06:50 07/25/21 06:50 07/25/21 06:50 Oxygen Flow Rate (L/min) 21 Oxygen Delivery Method Mechanical Ventilator Weight: 107.8 kg Body Mass Index (BMI) 38.3 Intake & Output: Intake and Output for Last 24 Hours 07/23/21 07/24/21 07/25/21 23:59 23:59 23:59 Intake Total 1092.76 / 1219.76 1570.75 / 1690.75 546.59 / 546.59 Output Total 1470 / 1670 2325 / 2525 400 / 400 Balance -377.24 / -450.24 -754.25 / -834.25 146.59 / 146.59 Lab / Micro Data Result Diagrams: 07/25/21 04:05 07/25/21 04:05 Labs: Laboratory Results - last 24 hr 07/23/21 04:00: Diff Path Review Reviewed 07/25/21 04:05: WBC 12.8 H, RBC 2.68 L, Hgb 8.2 L, Hct 26.1 L, MCV 97.4, MCH 30.6, MCHC 31.4 L, RDW Std Deviation 59.8 H, RDW Coeff of [place] 17.2 H, Plt Count 129 L, MPV 10.5, Immature Gran % (Auto) 0.500, Neut % (Auto) 69.4, Lymph % (Auto) 15.5 L, [place] % (Auto) 13.6 H, Eos % (Auto) 0.8, Baso % (Auto) 0.2, Absolute Neuts (auto) 8.9 H, Absolute Lymphs (auto) 1.99, Nucleated RBC % 0, Differential Comment SCANNED, Diff Path Review November07/25/21 04:05: Sodium 153 H, Potassium 3.4 L, Chloride 124 H, Carbon Dioxide 20.0 L, Anion Gap 9, BUN 44 H, Creatinine 1.90 H, Estim Creat Clear Calc 24.32, Est GFR (MDRD) Af Amer 33 L, Est GFR (MDRD) Non-Af 27 L, BUN/Creatinine Ratio 23.2 H, Glucose 110 H, Calcium 8.3 L, Total Bilirubin 1.50 H, AST 69 H, ALT 44, Alkaline Phosphatase 111, Total Protein 5.4 L, Albumin 1.6 L, Globulin 3.8, Albumin/Globulin Ratio 0.4 L 07/25/21 04:05: Magnesium 2.1 Micro: Microbiology 07/21/21 15:50 Sputum, Induced/Lukens Gram Stain - Final 07/21/21 15:50 Sputum, Induced/Lukens Respiratory Culture - Final 07/21/21 13:10 Blood Culture (Wb) - Right Hand Blood Culture - Preliminary No growth in 48 hours. 07/21/21 13:00 Blood Culture (Wb) - Right Hand Blood Culture - Preliminary No growth in 48 hours. 07/21/21 13:31 Urine Catheter - Drake Urine Culture - Final Klebsiella pneumoniae sp pneum 07/21/21 13:31 Nasal Secretion SARS-CoV-2 Antigen (Rapid) - Final ABG Data ABG results: ABG 07/24/21 07/25/21 07:18 06:07 Specimen Type ART ART Sample Site L Radial R Radial pH 7.46 H 7.44 Bicarbonate Actual 20.1 L 16.8 L Total CO2 21 18 Base Excess -4 L -8 L O2 Saturation 97 92 L O2 % 21 21 ABG pCO2 28.5 L 25.0 L ABG pO2 81 61 L Randolph Test Positive N/A O2 Delivery Device Adult Vent Adult Vent Vent Mode CPAP/PS PS POC PEEP 5 5 POC Pressure Suppt 5 5 Physical Exam Const no apparent distress Constitutional Narrative: Good vent synchrony General Appearance: intubated and patient mechanically ventilated Nutritional Appearance: obese HEENT normocephalic Mouth: endotracheal tube in place and OG tube in place Eyes PERRL and EOMs intact bilaterally Eyes Narrative: Mild scleral icterus Neck supple General: trachea midline Resp Auscultation: diminished lung sounds; Negative for rales, rhonchi or wheezes Cardio regular rate and regular rhythm Heart Sounds: murmur systolic III/ crescendo-decrescendo mid left sternal border GI normal to inspection, nondistended, normoactive bowel sounds Extremity General Extremity: edema bilateral lower extremity; Negative for clubbing or cyanosis Skin Skin Narrative: Facial bruising present. General Skin Exam: erythema, lichenification, venous stasis and dermatitis Charges/Coding Procedures Hospitalists Procedures: [id number] [facility] [place] 1st Hr
[2021-07-25] MEDS: rifAXIMin 550 MG Tablet GT ×2 (08:43→21:54)
[2021-07-25] MEDS: Levothyroxine 25 MCG TABLET GT (08:43)
[2021-07-25] MEDS: Chlorhexidine 15 ML PO ×2 (08:44→21:57)
--- NOTE | 2021-07-25 10:26 | PN.HOSP_ITS ---
Subjective Subjective Follow-up on acute hepatic encephalopathy/TWAN: Patient was seen and examined. She remains intubated. She could not be extubated today because she remains encephalopathic. Still has copious amount of feces in the FMS. Objective Data Objective Data Vital Signs: Vital Signs Temp Pulse Resp BP Pulse Ox 98 F 65 16 119/54 L 96 07/25/21 07:00 07/25/21 09:35 07/25/21 09:35 07/25/21 08:00 07/25/21 09:35 Oxygen Flow Rate (L/min) 21 Oxygen Delivery Method Mechanical Ventilator Weight: 107.8 kg Body Mass Index (BMI) 38.3 Intake & Output: Intake and Output for Last 24 Hours 07/23/21 07/24/21 07/25/21 23:59 23:59 23:59 Intake Total 1092.76 / 1219.76 1570.75 / 1690.75 659.24 / 659.24 Output Total 1470 / 1670 2325 / 2525 400 / 400 Balance -377.24 / -450.24 -754.25 / -834.25 259.24 / 259.24 Lab / Micro Data Result Diagrams: 07/25/21 04:05 07/25/21 04:05 Labs: Laboratory Results - last 24 hr 07/23/21 04:00: Diff Path Review Reviewed 07/25/21 04:05: WBC 12.8 H, RBC 2.68 L, Hgb 8.2 L, Hct 26.1 L, MCV 97.4, MCH 30.6, MCHC 31.4 L, RDW Std Deviation 59.8 H, RDW Coeff of [place] 17.2 H, Plt Count 129 L, MPV 10.5, Immature Gran % (Auto) 0.500, Neut % (Auto) 69.4, Lymph % (Auto) 15.5 L, [place] % (Auto) 13.6 H, Eos % (Auto) 0.8, Baso % (Auto) 0.2, Absolute Neuts (auto) 8.9 H, Absolute Lymphs (auto) 1.99, Nucleated RBC % 0, Differential Comment SCANNED, Diff Path Review November07/25/21 04:05: Sodium 153 H, Potassium 3.4 L, Chloride 124 H, Carbon Dioxide 20.0 L, Anion Gap 9, BUN 44 H, Creatinine 1.90 H, Estim Creat Clear Calc 24.32, Est GFR (MDRD) Af Amer 33 L, Est GFR (MDRD) Non-Af 27 L, BUN/Creatinine Ratio 23.2 H, Glucose 110 H, Calcium 8.3 L, Total Bilirubin 1.50 H, AST 69 H, ALT 44, Alkaline Phosphatase 111, Total Protein 5.4 L, Albumin 1.6 L, Globulin 3.8, Albumin/Globulin Ratio 0.4 L 07/25/21 04:05: Magnesium 2.1 Micro: Microbiology 07/21/21 15:50 Sputum, Induced/Lukens Gram Stain - Final 07/21/21 15:50 Sputum, Induced/Lukens Respiratory Culture - Final 07/21/21 13:10 Blood Culture (Wb) - Right Hand Blood Culture - Preliminary No growth in 48 hours. 07/21/21 13:00 Blood Culture (Wb) - Right Hand Blood Culture - Preliminary No growth in 48 hours. 07/21/21 13:31 Urine Catheter - Drake Urine Culture - Final Klebsiella pneumoniae sp pneum 07/21/21 13:31 Nasal Secretion SARS-CoV-2 Antigen (Rapid) - Final ABG Data ABG results: ABG 07/25/21 06:07 Specimen Type ART Sample Site R Radial pH 7.44 Bicarbonate Actual 16.8 L Total CO2 18 Base Excess -8 L O2 Saturation 92 L O2 % 21 ABG pCO2 25.0 L ABG pO2 61 L Randolph Test N/A O2 Delivery Device Adult Vent Vent Mode PS POC PEEP 5 POC Pressure Suppt 5 Physical Exam Narrative Narrative Physical exam: General: Intubated, on mechanical ventilator HEENT: Atraumatic, ET and OG tube insitu Oral: Moist Mucosa Neck: Supple Lungs: Diminished to auscultation Cardiovascular: HS I+II, regular, no murmurs Abdomen: Bowel Sounds Present, Soft, Non Tender, FMS has a lot of liquid stool Extremities: Bilateral leg edema +3 with chronic venous stasis dermatitis Assessment & Plan Assessment/Plan (1) Altered mental status: (2) Cirrhosis of liver: (3) Acute kidney insufficiency: (4) Acidosis, lactic: PLAN: 1. Acute hypoxic respiratory failure secondary to #2, possible aspiration pneumonitis Patient intubated on account of worsening encephalopathy for primary airway protection Remains intubated, on mechanical ventilator, on minimal oxygen requirement Continue on IV Unasyn Prison Guard Supervisor following 2. Acute hepatic encephalopathy, patient with underlying history of end-stage liver disease/cirrhosis secondary to STEARNS. Ammonia level is decreasing; currently 35 EGD done on 07/22/21 shows LA Grade C reflux esophagitis, portal hypertensive gastropathy, normal second portion of the duodenum. Latulose on hold on account of copious diarrhea Continue with octreotide, PPI, rifaximin GI following 3. Small bowel obstruction, status post NG tube, appears resolved Patient having lots of bowel movements Continue to monitor 4. Hypotension, unclear etiology for for now likely related to medication side effect/dehydration from diarrhea Patient received fluid boluses, Levophed weaned off, may need to be resumed for MAP less than 65 Continue midodrine Continue to wean off for MAP more than 65 5. Hypokalemia, replaced, recheck in a.m. 6. TWAN on CKD stage IIIb, likely secondary to dehydration and also #4 Creatinine remains about the same at 1.90 Continue to trend 7. Acute Klebsiella UTI, was on IV ceftriaxone, received for 2 doses 8. Rest of chronic medical conditions including hypothyroidism, obesity remained stable 9. DVT PPx- Lovenox Sc Charges/Coding Visit Charges Inpatient E&M: 77639 Subs Hosp L3
--- NOTE | 2021-07-25 10:29 | RAD_ITS ---
STUDY: X-RAY - ABDOMEN/PELVIS REASON FOR EXAM: Female, 76 years old. Follow-up for SBO TECHNIQUE: Single AP view of the abdomen / pelvis. COMPARISON: None. FINDINGS: Nasogastric tube with the tip in the left upper quadrant likely in the body the stomach. Drake catheter. There is an unremarkable bowel gas pattern. The visualized liver, spleen and kidneys are grossly normal in size and morphology. Normal soft tissue structures. Normal visualized osseous structures. RAD/Abdomen Single View (Portable) IMPRESSION: No bowel obstruction. Electronically Signed: Delroy Sevilla MD at 16:28 EST Tel , Service support ,
--- NOTE | 2021-07-25 10:36 | CASEMGMT ---
Social Work SW called [facility] this morning, confirmed they are not taking pts at this time. SW called son Heron to let him know, asked him to let SW know a few more choices. Charlie Shelby asked how pt is doing this morning, SW encouraged him to call into the ICU to ask. ERIC will continue to follow. CARRIE Gage
--- NOTE | 2021-07-25 11:05 | NURSING ---
Dr Wagner notified that once Levophed gtt was started the patients HR dropped to the 30's and pulse was thready. Telephone order received and 1 mg IV Atropine given. HR increased to 70's.
[2021-07-25] MEDS: Atropine Sulfate 1 MG/10 ML Syringe IV (11:54)
[2021-07-25 12:40] LABS: Bedside Glucose 130 mg/dL (70-110)
[2021-07-25 13:36] LABS: Pathologist Review Reviewed
[2021-07-25] MEDS: Vital AF 1.2 Cal Liquid 1,000 ML 20 ML GT (14:20)
--- NOTE | 2021-07-25 15:02 | CASEMGMT ---
Social Work Pt's daughter Catherine called this afternoon. She states they would like pt to go to TCU. SW explained that TCU is not appropriated as TCU does not take pt's secondary insurance, Medicaid. SW explained that pt should go to a facility that takes pt's secondary insurance. Daughter asked about [facility]. SW explained will call to see about bed availability and let her know. SW called [facility], message left. SW waiting for a call back. Pt is still on a vent so it is too soon to send a referral at this time. CARRIE Gage
[2021-07-25] MEDS: TITRATION PARAMETER CHANGE 1 EACH IV (15:59)
[2021-07-25 18:16] LABS: Bedside Glucose 138 mg/dL (70-110)
[2021-07-26] VITALS (24 sets, daily range): BP systolic 91–140; BP diastolic 41–108; PULSE 54–93; RESP 16–26; TEMP 36.6–38.1; O2SAT 3–100
[2021-07-26] MEDS: 0.9% Saline Lock 10 ML Syringe IV (04:49)
[2021-07-26 04:53] LABS: Absolute Lymphocyte Count 3.24 X10^3/uL (0.83-4.51); Basophil# 0.04 X10^3/uL; Basophil% 0.3 % (0-1); Eosinophil# 0.46 X10^3/uL; Eosinophils% 3.3 % (0-5); Hemoglobin 7.7 g/dL (12.0-15.0); Lymphocyte # 3.24 X10^3/ul (0.83-4.51); Mean Corp Hgb Conc 30.8 g/dL (32-36); Mean Corpuscular Hgb 29.7 pg (27.0-32.0); Mean Corpuscular Volume 96.5 fL (81-99); Mean Platelet Vol. 10.4 fl (6.2-12.0); Monocyte# 2.18 X10^3/uL; Monocyte% 15.5 % (0-10); NRBC Flagged by Analyzer 0.3 % (0-5); Neutrophil # 8.04 X10^3/uL (2.7-7.7); Neutrophil % 56.9 % (47-70); POSITIVE DIFFERENTIAL YES; Platelet Count 123 K/mm3 (150-450); RBC Distribution Width CV 17.2 % (11.6-14.6); RBC Distribution Width SD 60.3 fl (35.1-43.9); Red Blood Count 2.59 M/mm3 (4.2-5.4); White Blood Count 14.1 K/mm3 (4.4-11.0)
[2021-07-26 04:57] LABS: Differential Indicated SCAN CRITERIA MET
[2021-07-26] MEDS: Enoxaparin 30 MG/0.3 ML Syringe SC (05:03)
[2021-07-26] MEDS: CHLORHEXIDINE GLUC 2% CLOTH 1 EACH TOWELETTE TOPICAL (05:03)
[2021-07-26] MEDS: Nystatin Powder 15gm Bottle 1 APPLIC TOPICAL ×3 (05:03→21:18)
[2021-07-26] MEDS: Midodrine HCl 5 MG Tablet GT (05:04)
[2021-07-26 05:09] LABS: ALB/GLOB Ratio 0.5 RATIO (0.9-2.4); AST(SGOT) 78 U/L (15-37); Alanine Aminotransfer ALT/SGPT 45 U/L (13-56); Albumin, Serum 1.6 g/dL (3.2-5.0); Alkaline Phosphatase 108 U/L (45-117); Anion Gap 10 (5-15); BUN 48 mg/dL (7-18); BUN/Creat Ratio 21.7 RATIO (10-20); Calcium,Total 7.7 mg/dL (8.5-10.1); Chloride 121 mmol/L (98-107); Creatinine, Serum 2.21 mg/dL (0.55-1.02); EST Glomerular Filtration Rate 23 mL/min (>60); Est Glom Filt Rate - Afr Amer 28 mL/min (>60); Estimated Creatinine Clearance 20.91 ml/min; Globulin 3.5 g/dL (2.2-4.2); Glucose 126 mg/dL (74-106); Potassium 3.8 mmol/L (3.5-5.1); Protein, Total 5.1 g/dL (6.4-8.2); Sodium Level 149 mmol/L (136-145)
[2021-07-26 05:19] LABS: Differential Comment SCANNED; Hypochromasia 1+
--- NOTE | 2021-07-26 06:56 | PCM.PN.INT ---
Assessment & Plan Assessment/Plan (1) Altered mental status: (2) Acute respiratory failure: PLAN: RECOMMENDATIONS: 1. Trial of extubation if passes leak test 2. Continue lactulose and rifaximin per GI. 3. Continue Unasyn, given reported vomiting events. Anticipate 7 days of therapy 4. Continue appropriate GI prophylaxis. 5. Increase midodrine given need for pressors IMPRESSIONS: 1. Acute respiratory failure The patient was initially intubated in the emergency department due to presenting encephalopathy and concern for airway protection. The patient has a history of end-stage liver disease but was not on lactulose or rifaximin. Her presenting encephalopathy is secondary to hyperammonemia due to her underlying liver dysfunction. Antibiotics will be continued in light of the patient's episodes of emesis. Previous ABGs following spontaneous breathing trial show adequate oxygenation and ventilation. Mentation is much improved today compared to previous. We will proceed with extubation if patient is able to tolerate a leak test. 2. Decompensated cirrhosis with associated hepatic encephalopathy/thrombocytopenia The patient presented to the hospital in an unresponsive state secondary to hepatic encephalopathy. 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 Gastroenterology is currently following to assist with medical management. Continue rifaximin, lactulose and midodrine per GI recommendations. Patient also has a normocytic anemia 3. Hypokalemia/hyperkalemia/hyperchloremia/non-anion gap metabolic acidosis Electrolyte repletion as ordered. Recheck levels in the morning. Patient not responsive to increased free water flushes. We will add D5W for 24 hours. 4. Acute kidney injury/anemia/advanced age Complicates care, management, recovery and prognosis. Continue supportive measures as noted above. TIME: 32 minutes of critical care time, independent of procedures, was spent addressing the patient's acute respiratory failure, decompensated cirrhosis, hepatic encephalopathy, review of all data and collaboration with the care team. Subjective Subjective Patient's mentation was much improved this morning. Patient did have to be placed on Levophed overnight secondary to hypotension. Patient is much more responsive this morning and able to follow commands including giving a thumbs up. Patient tolerated her spontaneous breathing trial well. Objective Data Objective Data Vital Signs: Vital Signs Temp Pulse Resp BP Pulse Ox 38.1 C H 91 23 H 118/70 93 07/26/21 05:00 07/26/21 06:07 07/26/21 06:07 07/26/21 05:45 07/26/21 06:07 Oxygen Flow Rate (L/min) 21 Oxygen Delivery Method Mechanical Ventilator Weight: 109.3 kg Body Mass Index (BMI) 38.3 Intake & Output: Intake and Output for Last 24 Hours 07/24/21 07/25/21 07/26/21 23:59 23:59 23:59 Intake Total 1570.75 / 1690.75 2698.97 / 2717.75 294.10 / 294.10 Output Total 2325 / 2525 550 / 550 325 / 325 Balance -754.25 / -834.25 2148.97 / 2167.75 -30.90 / -30.90 Lab / Micro Data Result Diagrams: 07/26/21 04:45 07/26/21 04:45 Labs: Laboratory Results - last 24 hr 07/25/21 04:05: Diff Path Review Reviewed 07/25/21 12:31: POC Glucose 130 H 07/25/21 17:05: POC Glucose 138 H 07/26/21 04:45: WBC 14.1 H, RBC 2.59 L, Hgb 7.7 L, Hct 25.0 L, MCV 96.5, MCH 29.7, MCHC 30.8 L, RDW Std Deviation 60.3 H, RDW Coeff of [place] 17.2 H, Plt Count 123 L, MPV 10.4, Immature Gran % (Auto) 1.000 H, Neut % (Auto) 56.9, Lymph % (Auto) 23.0, [place] % (Auto) 15.5 H, Eos % (Auto) 3.3, Baso % (Auto) 0.3, Absolute Neuts (auto) 8.0 H, Absolute Lymphs (auto) 3.24, Nucleated RBC % 0.3, Differential Comment SCANNED, Diff Path Review May foll, Hypochromasia 1+ 07/26/21 04:45: Sodium 149 H, Potassium 3.8, Chloride 121 H, Carbon Dioxide 18.0 L, Anion Gap 10, BUN 48 H, Creatinine 2.21 H, Estim Creat Clear Calc 20.91, Est GFR (MDRD) Af Amer 28 L, Est GFR (MDRD) Non-Af 23 L, BUN/Creatinine Ratio 21.7 H, Glucose 126 H, Calcium 7.7 L, Total Bilirubin 1.20 H, AST 78 H, ALT 45, Alkaline Phosphatase 108, Total Protein 5.1 L, Albumin 1.6 L, Globulin 3.5, Albumin/Globulin Ratio 0.5 L Micro: Microbiology 07/21/21 15:50 Sputum, Induced/Lukens Gram Stain - Final 07/21/21 15:50 Sputum, Induced/Lukens Respiratory Culture - Final 07/21/21 13:10 Blood Culture (Wb) - Right Hand Blood Culture - Preliminary No growth in 48 hours. 07/21/21 13:00 Blood Culture (Wb) - Right Hand Blood Culture - Preliminary No growth in 48 hours. 07/21/21 13:31 Urine Catheter - Drake Urine Culture - Final Klebsiella pneumoniae sp pneum 07/21/21 13:31 Nasal Secretion SARS-CoV-2 Antigen (Rapid) - Final Radiography Diagnostic Testing: Radiology Impression KUB X-Ray 07/25/21 10:29 IMPRESSION: No bowel obstruction. Electronically Signed: Delroy Sevilla MD at 16:28 EST Tel , Service support , Physical Exam Const no apparent distress Constitutional Narrative: Good vent synchrony General Appearance: intubated and patient mechanically ventilated Nutritional Appearance: obese HEENT normocephalic Mouth: endotracheal tube in place and OG tube in place Eyes PERRL and EOMs intact bilaterally Eyes Narrative: Mild scleral icterus Neck supple General: trachea midline Resp Auscultation: diminished lung sounds; Negative for rales, rhonchi or wheezes Cardio regular rate and regular rhythm Heart Sounds: murmur systolic III/ crescendo-decrescendo mid left sternal border GI normal to inspection, nondistended, normoactive bowel sounds Extremity General Extremity: edema bilateral lower extremity; Negative for clubbing or cyanosis Skin Skin Narrative: Facial bruising present. General Skin Exam: erythema, lichenification, venous stasis and dermatitis Charges/Coding Procedures Hospitalists Procedures: [id number] [facility] H[facility]
--- NOTE | 2021-07-26 09:15 | PN.HOSP_ITS ---
Subjective Subjective Follow-up on acute hepatic encephalopathy/TWAN: Patient was seen and examined. She was extubated today, 07/26/21. Denies any fever or chills. Objective Data Objective Data Vital Signs: Vital Signs Temp Pulse Resp BP Pulse Ox 100.6 F H 83 20 H 124/108 H 100 07/26/21 05:00 07/26/21 08:30 07/26/21 07:30 07/26/21 08:30 07/26/21 08:30 Oxygen Flow Rate (L/min) 4 Oxygen Delivery Method Nasal Cannula Weight: 109.3 kg Body Mass Index (BMI) 38.3 Intake & Output: Intake and Output for Last 24 Hours 07/24/21 07/25/21 07/26/21 23:59 23:59 23:59 Intake Total 1570.75 / 1690.75 2698.97 / 2717.75 1256.12 / 1256.12 Output Total 2325 / 2525 550 / 550 325 / 325 Balance -754.25 / -834.25 2148.97 / 2167.75 931.12 / 931.12 Lab / Micro Data Result Diagrams: 07/26/21 04:45 07/26/21 04:45 Labs: Laboratory Results - last 24 hr 07/25/21 04:05: Diff Path Review Reviewed 07/25/21 12:31: POC Glucose 130 H 07/25/21 17:05: POC Glucose 138 H 07/26/21 04:45: WBC 14.1 H, RBC 2.59 L, Hgb 7.7 L, Hct 25.0 L, MCV 96.5, MCH 29.7, MCHC 30.8 L, RDW Std Deviation 60.3 H, RDW Coeff of [place] 17.2 H, Plt Count 123 L, MPV 10.4, Immature Gran % (Auto) 1.000 H, Neut % (Auto) 56.9, Lymph % (Auto) 23.0, [place] % (Auto) 15.5 H, Eos % (Auto) 3.3, Baso % (Auto) 0.3, Absolute Neuts (auto) 8.0 H, Absolute Lymphs (auto) 3.24, Nucleated RBC % 0.3, Differential Comment SCANNED, Diff Path Review May foll, Hypochromasia 1+ 07/26/21 04:45: Sodium 149 H, Potassium 3.8, Chloride 121 H, Carbon Dioxide 18.0 L, Anion Gap 10, BUN 48 H, Creatinine 2.21 H, Estim Creat Clear Calc 20.91, Est GFR (MDRD) Af Amer 28 L, Est GFR (MDRD) Non-Af 23 L, BUN/Creatinine Ratio 21.7 H , Glucose 126 H, Calcium 7.7 L, Total Bilirubin 1.20 H, AST 78 H, ALT 45, Alkaline Phosphatase 108, Total Protein 5.1 L, Albumin 1.6 L, Globulin 3.5, Albumin/Globulin Ratio 0.5 L Micro: Microbiology 07/21/21 15:50 Sputum, Induced/Lukens Gram Stain - Final 07/21/21 15:50 Sputum, Induced/Lukens Respiratory Culture - Final 07/21/21 13:10 Blood Culture (Wb) - Right Hand Blood Culture - Preliminary No growth in 48 hours. 07/21/21 13:00 Blood Culture (Wb) - Right Hand Blood Culture - Preliminary No growth in 48 hours. 07/21/21 13:31 Urine Catheter - Drake Urine Culture - Final Klebsiella pneumoniae sp pneum 07/21/21 13:31 Nasal Secretion SARS-CoV-2 Antigen (Rapid) - Final Radiography Diagnostic Testing: Radiology Impression KUB X-Ray 07/25/21 10:29 IMPRESSION: No bowel obstruction. Electronically Signed: Delroy Sevilla MD at 16:28 EST Tel , Service support , Physical Exam Narrative Physical exam: General: Alert, oriented to self, confused, not pale, not jaundiced, well hydrated HEENT: Atraumatic, ET and OG tube insitu Oral: Moist Mucosa Neck: Supple Lungs: Diminished to auscultation Cardiovascular: HS I+II, regular, no murmurs Abdomen: Bowel Sounds Present, Soft, Non Tender, FMS has liquid stool Extremities: Bilateral leg edema +2 with chronic venous stasis dermatitis Assessment & Plan Assessment/Plan (1) Altered mental status: QUALIFIERS: Altered mental status type: unspecified Qualified Code(s): R41.82 - Altered mental status, unspecified (2) Cirrhosis of liver: QUALIFIERS: Hepatic cirrhosis type: alcoholic cirrhosis Ascites presence: without ascites Qualified Code(s): K70.30 - Alcoholic cirrhosis of liver without ascites (3) Acute kidney insufficiency: (4) Acidosis, lactic: PLAN: 1. Acute hypoxic respiratory failure secondary to #2, possible aspiration pneumonitis, improved Patient was extubated on 07/26/21; currently on 4 L of oxygen Patient was intubated on account of worsening encephalopathy for primary airway protection Continue on IV Unasyn, will aim for 1 week total antibiotics Customer Service Analyst following Speech therapy consulted 2. Acute hepatic encephalopathy, patient with underlying history of end-stage liver disease/cirrhosis secondary to STEARNS, improved Patient is extubated, EGD done on 07/22/21 shows LA Grade C reflux esophagitis, portal hypertensive gastropathy, normal second portion of the duodenum. Diarrhea has improved, will resume lactulose twice daily with holding parameters for diarrhea Continue with octreotide, PPI, rifaximin GI consulted 3. Small bowel obstruction, status post NG tube, resolved 4. Hypotension, unclear etiology for for now likely related to medication side effect/dehydration from diarrhea, resolved Off pressors, continue midodrine 5. Hypokalemia, resolved 6. TWAN on CKD stage IIIb, likely secondary to dehydration and also #4 Creatinine elevated at 2.21 Continue to trend 7. Acute Klebsiella UTI, was on IV ceftriaxone, received for 2 doses 8. Rest of chronic medical conditions including hypothyroidism, obesity remained stable 9. DVT PPx- Lovenox Sc Charges/Coding Visit Charges Inpatient E&M: 71398 Subs Hosp L2
--- NOTE | 2021-07-26 11:33 | CASEMGMT ---
Social Work SW received a message from pt's daughter Catherine([phone]) stating that she and pt's son Heron would like a referral sent to [facility]. She states that they called over to [facility] and were told that they do have bed availability. SW left message for SW in ICU today letting her know family's request. SW called Catherine back, let her know SW received her message and passed it on to the covering ICU today to send a referral to [facility]. SW also let her know that this SW has not heard back from [facility] after our conversation yesterday. Daughter states understanding. SW will continue to follow, referral to be sent to [facility] when appropriate. CARRIE Gage
[2021-07-26] MEDS: Midodrine HCl 5 MG Tablet 10 MG GT ×2 (11:46→20:57)
[2021-07-26] MEDS: rifAXIMin 550 MG Tablet GT ×2 (11:47→20:57)
[2021-07-26] MEDS: Levothyroxine 25 MCG TABLET GT (11:47)
--- NOTE | 2021-07-26 11:58 | CASEMGMT ---
Addendum entered by Criss Benson 07/26/21 13:56: Social Work SW spoke with [facility] who states they do not have any beds available as they have a covid outbreak. Will await to hear from [facility]. EULALIA Arreola Original Note: Social Work VM left with [facility] at 1000 to inquire of bed availability. Waiting on return call. This SW spoke with ERIC Hughes who states family requesting referral to [facility]. ERIC placed call to [facility] at this time and spoke with [facility] who states they do have beds available. Referral faxed. Will await return call with determination. EULALIA Arreola
[2021-07-26 13:15] LABS: Pathologist Review Reviewed
[2021-07-26 14:00] LABS: Bedside Glucose 124 mg/dL (70-110)
--- NOTE | 2021-07-26 15:01 | CHAPLAIN ---
Type of Pastoral Visit _x__ Initial Visit ___ Follow-up Visit ___ On-call Visit ___ General Patient Visit ___ Spiritual Assessment ___ Family Conference ___ Bereavement ___ Rapid Response ___ Code Blue ___ Other (describe below) Pastoral Care Referral From _x__ Patient ___ Family ___ Nurse ___ Physician ___ Low Pressure Boiler Operator ___ Farm Equipment Technician ___ Other (describe below) Sacrament/Intervention _x__ Active listening ___ Anointing ___ Mormonism ___ Bereavement ___ Communion ___ Kristine exploration ___ ___ Life review _x__ Prayer ___ Reconciliation ___ Sacrament of Sick ___ Supportive presence ___ Wedding ___ Other (describe below) Pastoral Comments patient is slow to speak but appears to follow the questions and responds accordingly; prayer and presence given
--- NOTE | 2021-07-26 18:39 | PN_ITS ---
Subjective Subjective Patient was extubated today. She is still very lethargic. She has been having multiple bowel movements. Objective Data Objective Data Vital Signs: Vital Signs Temp Pulse Resp BP Pulse Ox 97.9 F 69 18 115/60 97 07/26/21 15:07 07/26/21 15:07 07/26/21 15:07 07/26/21 15:07 07/26/21 15:07 Oxygen Flow Rate (L/min) 2 Oxygen Delivery Method Nasal Cannula Weight: 240 lb 15.444 oz Body Mass Index (BMI) 38.3 Intake & Output: Intake and Output for Last 24 Hours 07/24/21 07/25/21 07/26/21 23:59 23:59 23:59 Intake Total 1570.75 / 1690.75 2698.97 / 2717.75 1628.12 / 1628.12 Output Total 2325 / 2525 550 / 550 325 / 325 Balance -754.25 / -834.25 2148.97 / 2167.75 1303.12 / 1303.12 Lab / Micro Data Result Diagrams: 07/26/21 04:45 07/26/21 04:45 Labs: Laboratory Results - last 24 hr 07/26/21 04:45: WBC 14.1 H, RBC 2.59 L, Hgb 7.7 L, Hct 25.0 L, MCV 96.5, MCH 29.7, MCHC 30.8 L, RDW Std Deviation 60.3 H, RDW Coeff of [place] 17.2 H, Plt Count 123 L, MPV 10.4, Immature Gran % (Auto) 1.000 H, Neut % (Auto) 56.9, Lymph % (Auto) 23.0, [place] % (Auto) 15.5 H, Eos % (Auto) 3.3, Baso % (Auto) 0.3, Absolute Neuts (auto) 8.0 H, Absolute Lymphs (auto) 3.24, Nucleated RBC % 0.3, Differential Comment SCANNED, Diff Path Review Reviewed, Hypochromasia 1+ 07/26/21 04:45: Sodium 149 H, Potassium 3.8, Chloride 121 H, Carbon Dioxide 18.0 L, Anion Gap 10, BUN 48 H, Creatinine 2.21 H, Estim Creat Clear Calc 20.91, Est GFR (MDRD) Af Amer 28 L, Est GFR (MDRD) Non-Af 23 L, BUN/Creatinine Ratio 21.7 H , Glucose 126 H, Calcium 7.7 L, Total Bilirubin 1.20 H, AST 78 H, ALT 45, Alkaline Phosphatase 108, Total Protein 5.1 L, Albumin 1.6 L, Globulin 3.5, Albumin/Globulin Ratio 0.5 L 07/26/21 13:57: POC Glucose 124 H Micro: Microbiology 07/21/21 13:10 Blood Culture (Wb) - Right Hand Blood Culture - Final No growth in 5 days. 07/21/21 13:00 Blood Culture (Wb) - Right Hand Blood Culture - Final No growth in 5 days. 07/21/21 15:50 Sputum, Induced/Lukens Gram Stain - Final 07/21/21 15:50 Sputum, Induced/Lukens Respiratory Culture - Final 07/21/21 13:31 Urine Catheter - Drake Urine Culture - Final Klebsiella pneumoniae sp pneum 07/21/21 13:31 Nasal Secretion SARS-CoV-2 Antigen (Rapid) - Final Physical Exam Const alert General Appearance: cooperative Orientation / Consciousness: oriented to person HEENT hearing grossly normal bilaterally Head and Scalp: normal to inspection Face and Sinus: face symmetric Nose: external nose normal Mouth: oral and palatal mucosa normal Eyes conjunctivae normal General Eye: normal appearance of both eyes Neck full ROM General: normal visual inspection Lymph Lymphatic: no lymphadenopathy noted Chest inspection of chest normal and palpation of chest normal Chest: symmetrical chest wall rise Resp normal respiratory effort Effort and Inspection: able to speak in complete sentences Cardio regular rate GI non-distended Percussion: normal to percussion Rectal Exam: deferred Neuro Speech: speech normal Gait (Neuro): normal gait Assessment & Plan Assessment/Plan (1) Hepatorenal syndrome: PLAN: patient's kidney function is improving with treatment for hepatorenal syndrome. She will need to continue midodrine and octreotide can be stopped. She can continue PPI prophylaxis. There is no indication that she d eveloped SBP causing hepatorenal syndrome. She is on antibiotic therapy that would cover SBP. Continue current antibiotic therapy for 7-day course as per treatment for aspiration pneumonia. (2) Hepatic encephalopathy: PLAN: Patient continues to have multiple bowel movements. I am okay with her only getting lactulose twice a day. Patient is not a transplant candidate due to her age and other significant comorbidities. Continue medical therapy including Xifaxan therapy. We will continue to follow. Charges/Coding Visit Charges Inpatient E&M: 70764 Subs Hosp L2
[2021-07-26 18:56] LABS: Bedside Glucose 122 mg/dL (70-110)
[2021-07-27 00:49] VITALS: BP 121/64; PULSE 68; RESP 19; TEMP 36.4; O2SAT 97
[2021-07-27 01:31] LABS: Bedside Glucose 123 mg/dL (70-110)
[2021-07-27 04:26] LABS: Absolute Lymphocyte Count 2.73 X10^3/uL (0.83-4.51); Absolute Neutrophil Count 6.2 X10^3/uL (2.0-7.7); Basophil# 0.03 X10^3/uL; Basophil% 0.3 % (0-1); Eosinophil# 0.43 X10^3/uL; Hematocrit 24.4 % (37-47); Hemoglobin 7.6 g/dL (12.0-15.0); Lymphocyte # 2.73 X10^3/ul (0.83-4.51); Lymphocyte % 25.3 % (19-41); Mean Corp Hgb Conc 31.1 g/dL (32-36); Mean Corpuscular Hgb 30.2 pg (27.0-32.0); Mean Corpuscular Volume 96.8 fL (81-99); Mean Platelet Vol. 10.5 fl (6.2-12.0); Monocyte# 1.34 X10^3/uL; Monocyte% 12.4 % (0-10); NRBC Flagged by Analyzer 0.2 % (0-5); Neutrophil # 6.17 X10^3/uL (2.7-7.7); Neutrophil % 57.3 % (47-70); POSITIVE COUNT YES; Platelet Count 91 K/mm3 (150-450); RBC Distribution Width CV 17.1 % (11.6-14.6); RBC Distribution Width SD 59.7 fl (35.1-43.9); Red Blood Count 2.52 M/mm3 (4.2-5.4); White Blood Count 10.8 K/mm3 (4.4-11.0)
[2021-07-27 04:27] LABS: Differential Indicated SCAN CRITERIA MET
[2021-07-27 04:53] LABS: ALB/GLOB Ratio 0.4 RATIO (0.9-2.4); AST(SGOT) 87 U/L (15-37); Alanine Aminotransfer ALT/SGPT 48 U/L (13-56); Albumin, Serum 1.5 g/dL (3.2-5.0); Alkaline Phosphatase 101 U/L (45-117); Anion Gap 5 (5-15); BUN 45 mg/dL (7-18); BUN/Creat Ratio 27.4 RATIO (10-20); Calcium,Total 7.7 mg/dL (8.5-10.1); Chloride 119 mmol/L (98-107); Creatinine, Serum 1.64 mg/dL (0.55-1.02); EST Glomerular Filtration Rate 33 mL/min (>60); Est Glom Filt Rate - Afr Amer 39 mL/min (>60); Estimated Creatinine Clearance 28.17 ml/min; Globulin 3.6 g/dL (2.2-4.2); Glucose 126 mg/dL (74-106); Potassium 3.8 mmol/L (3.5-5.1); Protein, Total 5.1 g/dL (6.4-8.2); Sodium Level 145 mmol/L (136-145)
[2021-07-27 05:09] VITALS: BP 105/54; PULSE 72; RESP 20; TEMP 36.4; O2SAT 98
[2021-07-27 05:20] LABS: Differential Comment SCANNED
[2021-07-27 05:21] LABS: Platelet Estimate SLT DEC (ADEQ)
[2021-07-27] MEDS: Enoxaparin 30 MG/0.3 ML Syringe SC (05:22)
[2021-07-27] MEDS: Midodrine HCl 5 MG Tablet 10 MG GT (05:22)
[2021-07-27] MEDS: Nystatin Powder 15gm Bottle 1 APPLIC TOPICAL ×3 (05:22→19:54)
[2021-07-27 05:23] LABS: Hypochromasia 2+
[2021-07-27 06:31] LABS: Bedside Glucose 111 mg/dL (70-110)
--- NOTE | 2021-07-27 09:25 | PN.HOSP_ITS ---
Subjective Subjective Follow-up on acute hepatic encephalopathy/TWAN: Patient was seen and examined. She is alert oriented to person and time but not place. Denies any new complaints. No acute events Objective Data Objective Data Vital Signs: Vital Signs Temp Pulse Resp BP Pulse Ox 97.6 F L 72 20 H 105/54 L 98 07/27/21 05:09 07/27/21 05:09 07/27/21 05:09 07/27/21 05:09 07/27/21 05:09 Oxygen Flow Rate (L/min) 2 Oxygen Delivery Method Nasal Cannula Weight: 110.4 kg Body Mass Index (BMI) 38.3 Intake & Output: Intake and Output for Last 24 Hours 07/25/21 07/26/21 07/27/21 23:59 23:59 23:59 Intake Total 2698.97 / 2717.75 2715.37 / 2715.37 772.5 / 772.5 Output Total 550 / 550 575 / 575 400 / 400 Balance 2148.97 / 2167.75 2140.37 / 2140.37 372.5 / 372.5 Lab / Micro Data Result Diagrams: 07/27/21 03:41 07/27/21 03:41 Labs: Laboratory Results - last 24 hr 07/26/21 04:45: Diff Path Review Reviewed 07/26/21 13:57: POC Glucose 124 H 07/26/21 18:50: POC Glucose 122 H 07/27/21 00:44: POC Glucose 123 H 07/27/21 03:41: WBC 10.8, RBC 2.52 L, Hgb 7.6 L, Hct 24.4 L, MCV 96.8, MCH 30.2, MCHC 31.1 L, RDW Std Deviation 59.7 H, RDW Coeff of [place] 17.1 H, Plt Count 91 L, MPV 10.5, Immature Gran % (Auto) 0.700, Neut % (Auto) 57.3, Lymph % (Auto) 25.3, [place] % (Auto) 12.4 H, Eos % (Auto) 4.0, Baso % (Auto) 0.3, Absolute Neuts (auto) 6.2, Absolute Lymphs (auto) 2.73, Nucleated RBC % 0.2, Differential Comment SCANNED, Platelet Estimate SLT DEC, Hypochromasia 2+ 07/27/21 03:41: Sodium 145, Potassium 3.8, Chloride 119 H, Carbon Dioxide 21.0, Anion Gap 5, BUN 45 H, Creatinine 1.64 H, Estim Creat Clear Calc 28.17, Est GFR (MDRD) Af Amer 39 L, Est GFR (MDRD) Non-Af 33 L, BUN/Creatinine Ratio 27.4 H, Glucose 126 H, Calcium 7.7 L, Total Bilirubin 1.40 H, AST 87 H, ALT 48, Alkaline Phosphatase 101, Total Protein 5.1 L, Albumin 1.5 L, Globulin 3.6, Albumin/Globulin Ratio 0.4 L 07/27/21 05:17: POC Glucose 111 H Micro: Microbiology 07/21/21 13:10 Blood Culture (Wb) - Right Hand Blood Culture - Final No growth in 5 days. 07/21/21 13:00 Blood Culture (Wb) - Right Hand Blood Culture - Final No growth in 5 days. 07/21/21 15:50 Sputum, Induced/Lukens Gram Stain - Final 07/21/21 15:50 Sputum, Induced/Lukens Respiratory Culture - Final 07/21/21 13:31 Urine Catheter - Drake Urine Culture - Final Klebsiella pneumoniae sp pneum 07/21/21 13:31 Nasal Secretion SARS-CoV-2 Antigen (Rapid) - Final Physical Exam Narrative Physical exam: General: Alert, oriented to self, confused, not pale, not jaundiced, well hydrated HEENT: Atraumatic, ET and OG tube insitu Oral: Moist Mucosa Neck: Supple Lungs: Diminished to auscultation Cardiovascular: HS I+II, regular, no murmurs Abdomen: Bowel Sounds Present, Soft, Non Tender, FMS has liquid stool Extremities: Bilateral leg edema +2 with chronic venous stasis dermatitis Assessment & Plan Assessment/Plan (1) Altered mental status: QUALIFIERS: Altered mental status type: unspecified Qualified Code(s): R41.82 - Altered mental status, unspecified (2) Cirrhosis of liver: QUALIFIERS: Hepatic cirrhosis type: alcoholic cirrhosis Ascites presence: without ascites Qualified Code(s): K70.30 - Alcoholic cirrhosis of liver without ascites (3) Acute kidney insufficiency: (4) Acidosis, lactic: PLAN: 1. Acute hypoxic respiratory failure secondary to #2, possible aspiration pneumonitis, improved Patient was extubated on 07/26/21; currently on 2 L of oxygen Patient was intubated on account of worsening encephalopathy for primary airway protection Will switch from Unasyn to Augmentin; will aim for 1 week total antibiotics Build Technician following Speech therapy consulted 2. Acute hepatic encephalopathy, patient with underlying history of end-stage liver disease/cirrhosis secondary to STEARNS, improved Patient was extubated on 07/26/21 EGD done on 07/22/21 shows LA Grade C reflux esophagitis, portal hypertensive gastropathy, normal second portion of the duodenum. Diarrhea has improved, continue on lactulose, octreotide, PPI, rifaximin GI consulted Will start on Lasix and re-evaluate with renal panel prior to starting spir onolactone 3. Small bowel obstruction, status post NG tube, resolved 4. Hypotension, unclear etiology for for now likely related to medication side effect/dehydration from diarrhea, resolved Off pressors, continue midodrine 5. Hypokalemia, resolved 6. TWAN on CKD stage IIIb, likely secondary to dehydration and also #4 Creatinine improved from 2.21 to 1.64 Continue to trend 7. Acute Klebsiella UTI, was on IV ceftriaxone, received for 2 doses 8. Rest of chronic medical conditions including hypothyroidism, obesity remained stable 9. DVT PPx- Lovenox Sc 10. Disposition: Discharge planning to SNF Charges/Coding Visit Charges Inpatient E&M: 71700 Subs Hosp L2
[2021-07-27] MEDS: Levothyroxine 25 MCG TABLET GT (09:33)
[2021-07-27] MEDS: rifAXIMin 550 MG Tablet GT (09:33)
[2021-07-27] MEDS: Midodrine HCl 5 MG Tablet 10 MG PO ×2 (09:33→17:24)
[2021-07-27] MEDS: Furosemide 40 MG/4 ML Vial IV (09:44)
--- NOTE | 2021-07-27 09:44 | PCM.PN.INT ---
Assessment & Plan Assessment/Plan (1) Altered mental status: QUALIFIERS: Altered mental status type: unspecified Qualified Code(s): R41.82 - Altered mental status, unspecified (2) Acute respiratory failure: PLAN: RECOMMENDATIONS: 1. Discontinue D5W 2. Continue lactulose and rifaximin per GI. 3. Continue Unasyn, given reported vomiting events. Anticipate 7 days of therapy 4. Continue appropriate GI prophylaxis. 5. Increase midodrine given need for pressors 6. Okay to give Lasix 7. Hemodynamically stable on room air. We will sign off from a critical care perspective. Please call with issues. IMPRESSIONS: 1. Acute respiratory failure The patient was initially intubated in the emergency department due to presenting encephalopathy and concern for airway protection. The patient has a history of end-stage liver disease but was not on lactulose or rifaximin. Her presenting encephalopathy is secondary to hyperammonemia due to her underlying liver dysfunction. Antibiotics will be continued in light of the patient's episodes of emesis. Patient is doing very well following extubation. Patient can have a walking oximetry prior to discharge. 2. Decompensated cirrhosis with associated hepatic encephalopathy/thrombocytopenia The patient presented to the hospital in an unresponsive state secondary to hepatic encephalopathy. 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 Gastroenterology is currently following to assist with medical management. Continue rifaximin, lactulose and midodrine per GI recommendations. Patient also has a normocytic anemia 3. Hypokalemia/hyperkalemia/hyperchloremia/non-anion gap metabolic acidosis Electrolyte repletion as ordered. Recheck levels in the morning. Patient responded well to D5W. This will be discontinued. 4. Acute kidney injury/anemia/advanced age Complicates care, management, recovery and prognosis. Continue supportive measures as noted above. Subjective Subjective Patient transferred out of the intensive care unit yesterday. Patient is much more interactive today compared to yesterday, but still confused on her location. Patient has been able to be weaned to room air. Patient is not reporting any pains at this time. Objective Data Objective Data Vital Signs: Vital Signs Temp Pulse Resp BP Pulse Ox 36.4 C L 72 20 H 105/54 L 98 07/27/21 05:09 07/27/21 05:09 07/27/21 05:09 07/27/21 05:09 07/27/21 05:09 Oxygen Flow Rate (L/min) 2 Oxygen Delivery Method Nasal Cannula Weight: 110.4 kg Body Mass Index (BMI) 38.3 Intake & Output: Intake and Output for Last 24 Hours 07/25/21 07/26/21 07/27/21 23:59 23:59 23:59 Intake Total 2698.97 / 2717.75 2715.37 / 2715.37 772.5 / 772.5 Output Total 550 / 550 575 / 575 400 / 400 Balance 2148.97 / 2167.75 2140.37 / 2140.37 372.5 / 372.5 Lab / Micro Data Result Diagrams: 07/27/21 03:41 07/27/21 03:41 Labs: Laboratory Results - last 24 hr 07/26/21 04:45: Diff Path Review Reviewed 07/26/21 13:57: POC Glucose 124 H 07/26/21 18:50: POC Glucose 122 H 07/27/21 00:44: POC Glucose 123 H 07/27/21 03:41: WBC 10.8, RBC 2.52 L, Hgb 7.6 L, Hct 24.4 L, MCV 96.8, MCH 30.2, MCHC 31.1 L, RDW Std Deviation 59.7 H, RDW Coeff of [place] 17.1 H, Plt Count 91 L, MPV 10.5, Immature Gran % (Auto) 0.700, Neut % (Auto) 57.3, Lymph % (Auto) 25.3, [place] % (Auto) 12.4 H, Eos % (Auto) 4.0, Baso % (Auto) 0.3, Absolute Neuts (auto) 6.2, Absolute Lymphs (auto) 2.73, Nucleated RBC % 0.2, Differential Comment SCANNED, Platelet Estimate SLT DEC, Hypochromasia 2+ 07/27/21 03:41: Sodium 145, Potassium 3.8, Chloride 119 H, Carbon Dioxide 21.0, Anion Gap 5, BUN 45 H, Creatinine 1.64 H, Estim Creat Clear Calc 28.17, Est GFR (MDRD) Af Amer 39 L, Est GFR (MDRD) Non-Af 33 L, BUN/Creatinine Ratio 27.4 H, Glucose 126 H, Calcium 7.7 L, Total Bilirubin 1.40 H, AST 87 H, ALT 48, Alkaline Phosphatase 101, Total Protein 5.1 L, Albumin 1.5 L, Globulin 3.6, Albumin/Globulin Ratio 0.4 L 07/27/21 05:17: POC Glucose 111 H Micro: Microbiology 07/21/21 13:10 Blood Culture (Wb) - Right Hand Blood Culture - Final No growth in 5 days. 07/21/21 13:00 Blood Culture (Wb) - Right Hand Blood Culture - Final No growth in 5 days. 07/21/21 15:50 Sputum, Induced/Lukens Gram Stain - Final 07/21/21 15:50 Sputum, Induced/Lukens Respiratory Culture - Final 07/21/21 13:31 Urine Catheter - Drake Urine Culture - Final Klebsiella pneumoniae sp pneum 07/21/21 13:31 Nasal Secretion SARS-CoV-2 Antigen (Rapid) - Final Physical Exam Const no apparent distress General Appearance: cooperative and comfortable Orientation / Consciousness: oriented to person Nutritional Appearance: obese HEENT normocephalic Eyes PERRL and EOMs intact bilaterally Eyes Narrative: Mild scleral icterus Neck supple General: trachea midline Resp Auscultation: diminished lung sounds; Negative for rales, rhonchi or wheezes Cardio regular rate and regular rhythm Heart Sounds: murmur systolic III/ crescendo-decrescendo mid left sternal border GI normal to inspection, nondistended, normoactive bowel sounds Extremity General Extremity: edema bilateral lower extremity; Negative for clubbing or cyanosis Skin Skin Narrative: Facial bruising present and healing appropriately General Skin Exam: erythema, lichenification, venous stasis and dermatitis Charges/Coding Visit Charges Inpatient E&M: 13055 Subs Hosp L2
[2021-07-27 09:45] VITALS: BP 119/55; PULSE 66; RESP 18; TEMP 36.6; O2SAT 95
[2021-07-27 09:45] LABS: Immature Platelet Fraction 2.5 % (1.0-7.9); Platelet Count 92 K/mm3 (150-450); RET-HE 34.9 pg (30-35); Reticulocyte Count 3.29 % (0.5-1.5)
[2021-07-27] MEDS: 0.9% Saline Lock 10 ML Syringe IV (09:46)
[2021-07-27 09:52] LABS: Iron 49 ug/dL (50-170); Iron Binding Capacity,Total 165 ug/dL (250-450); PERCENT IRON SATURATION 29.7 % (15.0-55.0)
[2021-07-27] MEDS: Pantoprazole Sodium 40 MG Tablet PO ×2 (10:29→19:55)
[2021-07-27] MEDS: Amox/Clavulanate 500 MG Tablet PO ×2 (10:29→19:53)
--- NOTE | 2021-07-27 11:20 | CASEMGMT ---
Social Work Phone call to [facility] to check on status of referral. No determination at this time as Lenora has questions. Questions answered and updated clinicals faxed for further review. SW will await determination of acceptance. EULALIA Arreola
--- NOTE | 2021-07-27 12:23 | CASEMGMT ---
Addendum entered by Criss Benson 07/27/21 15:48: Social Work Return call from Dgt Catherine and she would like [facility]. Call to [facility] and they are not accepting [place] although the are in network. Catherine's next choice is [facility]. They do have rooms available. Referral faxed. SW will await determination. Catherine updated. EULALIA Arreola Addendum entered by Criss Benson 07/27/21 13:46: Social Work Return call from pt dgt Catherine and updated that [facility] is not accept referrals and [facility] cannot consider pt until Saturday. Per physician, pt may likely be ready for discharge prior to this. Per Catherine's request, list of [facility] SNFs and SNFs in [place] emailed to Catherine for consideration. SW will wait for dgts decision on next facility of choice. EULALIA Arreola Original Note: Social Work Return call from [facility] who states they are only taking two admissions a day and have their two admissions lined up for tomorrow. They are requesting updated clinicals be faxed on Saturday for review. Physician indicates pt may be ready for discharge on the weekend. SW placed call to pt dgbaal Alexander and left requesting return call to discuss discharge plan. EULALIA Arreola
[2021-07-27 14:30] VITALS: BP 110/52; PULSE 66; RESP 16; TEMP 36.3; O2SAT 96
[2021-07-27 15:01] LABS: Bedside Glucose 103 mg/dL (70-110)
[2021-07-27] MEDS: Menthol/Lanolin/Calamine/Znox 113 GM Tube 1 APPLIC TOPICAL ×2 (17:23→19:54)
[2021-07-27 17:30] VITALS: BP 127/66; PULSE 66; RESP 16; TEMP 36.6; O2SAT 96
[2021-07-27] MEDS: rifAXIMin 550 MG Tablet PO (19:56)
[2021-07-27 20:01] LABS: Bedside Glucose 97 mg/dL (70-110)
[2021-07-27 20:01] LABS: Bedside Glucose 106 mg/dL (70-110)
[2021-07-27 22:29] VITALS: BP 127/66; PULSE 72; RESP 17; TEMP 37.1; O2SAT 96
[2021-07-28] MEDS: Midodrine HCl 5 MG Tablet 10 MG PO ×3 (01:22→18:37)
[2021-07-28 03:32] LABS: ALB/GLOB Ratio 0.4 RATIO (0.9-2.4); AST(SGOT) 83 U/L (15-37); Alanine Aminotransfer ALT/SGPT 49 U/L (13-56); Albumin, Serum 1.5 g/dL (3.2-5.0); Alkaline Phosphatase 108 U/L (45-117); Anion Gap 6 (5-15); BUN 44 mg/dL (7-18); BUN/Creat Ratio 28.9 RATIO (10-20); Chloride 120 mmol/L (98-107); Creatinine, Serum 1.52 mg/dL (0.55-1.02); EST Glomerular Filtration Rate 36 mL/min (>60); Est Glom Filt Rate - Afr Amer 43 mL/min (>60); Globulin 4.1 g/dL (2.2-4.2); Glucose 92 mg/dL (74-106); Potassium 4.1 mmol/L (3.5-5.1); Protein, Total 5.6 g/dL (6.4-8.2); Sodium Level 145 mmol/L (136-145)
[2021-07-28 03:36] VITALS: BP 116/82; PULSE 73; RESP 18; TEMP 36; O2SAT 95
[2021-07-28 04:31] LABS: Bedside Glucose 79 mg/dL (70-110)
[2021-07-28] MEDS: Nystatin Powder 15gm Bottle 1 APPLIC TOPICAL ×3 (05:49→21:55)
[2021-07-28 08:19] LABS: Absolute Lymphocyte Count 2.59 X10^3/uL (0.83-4.51); Absolute Neutrophil Count 5.8 X10^3/uL (2.0-7.7); Basophil# 0.04 X10^3/uL; Basophil% 0.4 % (0-1); Eosinophil# 0.33 X10^3/uL; Eosinophils% 3.3 % (0-5); Hematocrit 23.6 % (37-47); Hemoglobin 8.2 g/dL (12.0-15.0); Lymphocyte # 2.59 X10^3/ul (0.83-4.51); Lymphocyte % 26.1 % (19-41); Mean Corp Hgb Conc 34.7 g/dL (32-36); Mean Corpuscular Hgb 34.6 pg (27.0-32.0); Mean Corpuscular Volume 99.6 fL (81-99); Mean Platelet Vol. 11.4 fl (6.2-12.0); Monocyte# 1.14 X10^3/uL; Monocyte% 11.5 % (0-10); NRBC Flagged by Analyzer 0.2 % (0-5); Neutrophil # 5.75 X10^3/uL (2.7-7.7); Neutrophil % 57.8 % (47-70); POSITIVE COUNT YES; Platelet Count 83 K/mm3 (150-450); RBC Distribution Width CV 17.1 % (11.6-14.6); RBC Distribution Width SD 59.5 fl (35.1-43.9); Red Blood Count 2.37 M/mm3 (4.2-5.4); White Blood Count 9.9 K/mm3 (4.4-11.0)
[2021-07-28 09:18] VITALS: BP 100/55; PULSE 68; RESP 16; TEMP 35.9; O2SAT 95
[2021-07-28] MEDS: Furosemide 40 MG Tablet PO ×2 (09:21→18:36)
[2021-07-28] MEDS: rifAXIMin 550 MG Tablet PO ×2 (09:21→21:54)
[2021-07-28] MEDS: Amox/Clavulanate 500 MG Tablet PO ×2 (09:21→21:53)
[2021-07-28] MEDS: Menthol/Lanolin/Calamine/Znox 113 GM Tube 1 APPLIC TOPICAL ×2 (09:21→21:55)
[2021-07-28] MEDS: Pantoprazole Sodium 40 MG Tablet PO ×2 (09:21→21:54)
[2021-07-28] MEDS: Levothyroxine 25 MCG TABLET PO (09:21)
[2021-07-28 11:41] LABS: Bedside Glucose 82 mg/dL (70-110)
--- NOTE | 2021-07-28 11:50 | PCM.PN.HOSP ---
Subjective Subjective Follow-up on acute hepatic encephalopathy/TWAN: Patient was seen and examined. No acute events. Kept NPO except for meds by speech therapy. Speech therapy reevaluation is pending. Patient stated she was hungry. Objective Data Objective Data Vital Signs: Vital Signs Temp Pulse Resp BP Pulse Ox 96.7 F L 68 16 100/55 L 95 07/28/21 09:18 07/28/21 09:18 07/28/21 09:18 07/28/21 09:18 07/28/21 09:18 Oxygen Flow Rate (L/min) 2 Oxygen Delivery Method Room Air Weight: 109 kg Body Mass Index (BMI) 38.3 Intake & Output: Intake and Output for Last 24 Hours 07/26/21 07/27/21 07/28/21 23:59 23:59 23:59 Intake Total 2715.37 / 2715.37 772.5 / 772.5 Output Total 575 / 575 1400 / 1400 700 / 700 Balance 2140.37 / 2140.37 -627.5 / -627.5 -700 / -700 Lab / Micro Data Result Diagrams: 07/28/21 07:18 07/28/21 02:55 Labs: Laboratory Results - last 24 hr 07/27/21 14:55: POC Glucose 103 07/27/21 17:23: POC Glucose 97 07/27/21 19:52: POC Glucose 106 07/28/21 02:55: Sodium 145, Potassium 4.1, Chloride 120 H, Carbon Dioxide 19.0 L, Anion Gap 6, BUN 44 H, Creatinine 1.52 H, Estim Creat Clear Calc 30.40, Est GFR (MDRD) Af Amer 43 L, Est GFR (MDRD) Non-Af 36 L, BUN/Creatinine Ratio 28.9 H, Glucose 92, Calcium 8.0 L, Total Bilirubin 1.50 H, AST 83 H, ALT 49, Alkaline Phosphatase 108, Total Protein 5.6 L, Albumin 1.5 L, Globulin 4.1, Albumin/Globulin Ratio 0.4 L 07/28/21 02:55: Ammonia 22.0 07/28/21 04:24: POC Glucose 79 07/28/21 07:18: WBC 9.9, RBC 2.37 L, Hgb 8.2 L, Hct 23.6 L, MCV 99.6 H, MCH 34.6 H, MCHC 34.7 D, RDW Std Deviation 59.5 H, RDW Coeff of [place] 17.1 H, Plt Count 83 L, MPV 11.4, Immature Gran % (Auto) 0.900, Neut % (Auto) 57.8, Lymph % (Auto) 26.1, [place] % (Auto) 11.5 H, Eos % (Auto) 3.3, Baso % (Auto) 0.4, Absolute Neuts (auto) 5.8, Absolute Lymphs (auto) 2.59, Nucleated RBC % 0.2 07/28/21 11:23: POC Glucose 82 Micro: Microbiology 07/21/21 13:10 Blood Culture (Wb) - Right Hand Blood Culture - Final No growth in 5 days. 07/21/21 13:00 Blood Culture (Wb) - Right Hand Blood Culture - Final No growth in 5 days. 07/21/21 15:50 Sputum, Induced/Lukens Gram Stain - Final 07/21/21 15:50 Sputum, Induced/Lukens Respiratory Culture - Final 07/21/21 13:31 Urine Catheter - Drkae Urine Culture - Final Klebsiella pneumoniae sp pneum 07/21/21 13:31 Nasal Secretion SARS-CoV-2 Antigen (Rapid) - Final Physical Exam Narrative Physical exam: General: Alert, oriented to self, confused, not pale, not jaundiced, well hydrated HEENT: Atraumatic, ET and OG tube insitu Oral: Moist Mucosa Neck: Supple Lungs: Diminished to auscultation Cardiovascular: HS I+II, regular, no murmurs Abdomen: Bowel Sounds Present, Soft, Non Tender, FMS has liquid stool Extremities: Bilateral leg edema +2 with chronic venous stasis dermatitis Assessment & Plan Assessment/Plan (1) Altered mental status: QUALIFIERS: Altered mental status type: unspecified Qualified Code(s): R41.82 - Altered mental status, unspecified (2) Cirrhosis of liver: QUALIFIERS: Hepatic cirrhosis type: alcoholic cirrhosis Ascites presence: without ascites Qualified Code(s): K70.30 - Alcoholic cirrhosis of liver without ascites (3) Acute kidney insufficiency: (4) Acidosis, lactic: PLAN: 1. Acute hypoxic respiratory failure secondary to #2, possible aspiration pneumonitis, resolved Patient was extubated on 07/26/21; off oxygen Patient was intubated on account of worsening encephalopathy for primary airway protection Continue on Augmentin; will aim for 1 week total antibiotics Construction And Maintenance Inspector following Speech therapy consulted 2. Acute hepatic encephalopathy, patient with underlying history of end-stage liver disease/cirrhosis secondary to STEARNS, resolved Patient was extubated on 07/26/21 EGD done on 07/22/21 shows LA Grade C reflux esophagitis, portal hypertensive gastropathy, normal second portion of the duodenum. Ammonia is 22 today Diarrhea has improved; continue on lactulose, octreotide, PPI, rifaximin, Lasix. Restart spironolactone GI consulted 3. Small bowel obstruction, status post NG tube, resolved 4. Shock, unclear etiology, noted in ICU, resolved Patient was on pressors for short time Likely related to medication side effect/dehydration from diarrhea Off pressors, continue midodrine 5. Hypokalemia, resolved 6. TWAN on CKD stage IIIb, likely secondary to dehydration and also #4 Creatinine improving, now 1.52 from 1.64 Continue to trend 7. Acute Klebsiella UTI, was on IV ceftriaxone, received for 2 doses 8. Rest of chronic medical conditions including hypothyroidism, obesity remained stable 9. DVT PPx- Lovenox Sc 10. Disposition: Discharge planning to SNF Charges/Coding Visit Charges Inpatient E&M: 04829 Subs Hosp L2
--- NOTE | 2021-07-28 12:14 | CASEMGMT ---
Social Work Phone call to [facility]. VM left with Annita ([phone]) for update on status of referral. SW will await return call. EULALIA Arreola
--- NOTE | 2021-07-28 13:40 | CASEMGMT ---
Social Work SW received call from Annita at [facility]. Determination if they can accept has not been made yet. Questions answered and ERIC explained that pt would be ready for d/c this weekend. Annita states case is still under review and will notify this SW or weekend staff of acceptance. SW stressed importance of decision today and requested return call to this SW today. Plan: [facility] SNF pending acceptance EULALIA Arreola
[2021-07-28 14:35] VITALS: BP 119/62; PULSE 62; RESP 16; TEMP 36.5; O2SAT 99
--- NOTE | 2021-07-28 17:10 | CASEMGMT ---
Social Work Conversation with Annita, admission coordinator at [facility]. Pt case is still in review and decision has not been made yet as to acceptance. SW provided phone number of weekend SW in event they can accept pt over the weekend. Pt dgt Catherine updated that decision has not been made. Pt insurance is being waived so auth is not needed if able to accept pt this weekend. Plan: [facility], pending acceptance EULALIA Arreola
[2021-07-28 17:20] LABS: Bedside Glucose 139 mg/dL (70-110)
[2021-07-28] MEDS: 0.9% Saline Lock 10 ML Syringe IV (18:37)
[2021-07-28 20:40] VITALS: BP 105/62; PULSE 70; RESP 20; TEMP 36.8; O2SAT 92
[2021-07-29] MEDS: Midodrine HCl 5 MG Tablet 10 MG PO ×3 (01:05→17:46)
[2021-07-29 02:40] VITALS: BP 111/67; PULSE 64; RESP 17; TEMP 36.8; O2SAT 95
[2021-07-29 05:00] LABS: ALB/GLOB Ratio 0.4 RATIO (0.9-2.4); AST(SGOT) 62 U/L (15-37); Alanine Aminotransfer ALT/SGPT 46 U/L (13-56); Albumin, Serum 1.6 g/dL (3.2-5.0); Alkaline Phosphatase 109 U/L (45-117); Anion Gap 6 (5-15); BUN 45 mg/dL (7-18); BUN/Creat Ratio 26.6 RATIO (10-20); Calcium,Total 7.9 mg/dL (8.5-10.1); Chloride 118 mmol/L (98-107); Creatinine, Serum 1.69 mg/dL (0.55-1.02); EST Glomerular Filtration Rate 31 mL/min (>60); Est Glom Filt Rate - Afr Amer 38 mL/min (>60); Estimated Creatinine Clearance 27.34 ml/min; Globulin 3.9 g/dL (2.2-4.2); Glucose 111 mg/dL (74-106); Potassium 4.1 mmol/L (3.5-5.1); Protein, Total 5.5 g/dL (6.4-8.2); Sodium Level 145 mmol/L (136-145)
[2021-07-29] MEDS: Nystatin Powder 15gm Bottle 1 APPLIC TOPICAL ×3 (06:19→20:28)
[2021-07-29] MEDS: Menthol/Lanolin/Calamine/Znox 113 GM Tube 1 APPLIC TOPICAL ×2 (08:15→20:28)
--- NOTE | 2021-07-29 09:25 | PCM.PN.HOSP ---
Subjective Subjective Follow-up on acute hepatic encephalopathy/TWAN: Patient was seen and examined. No acute events. She is on soft bite-size pieces with thin liquids. Discharge planning to residential facility ongoing Objective Data Objective Data Vital Signs: Vital Signs Temp Pulse Resp BP Pulse Ox 98.2 F 64 17 111/67 95 07/29/21 02:40 07/29/21 02:40 07/29/21 02:40 07/29/21 02:40 07/29/21 02:40 Oxygen Flow Rate (L/min) 2 Oxygen Delivery Method Room Air Weight: 108.7 kg Body Mass Index (BMI) 38.3 Intake & Output: Intake and Output for Last 24 Hours 07/27/21 07/28/21 07/29/21 23:59 23:59 23:59 Intake Total 772.5 / 772.5 240 / 240 300 / 300 Output Total 1400 / 1400 900 / 1250 500 / 500 Balance -627.5 / -627.5 -660 / -1010 -200 / -200 Lab / Micro Data Result Diagrams: 07/28/21 07:18 07/29/21 04:28 Labs: Laboratory Results - last 24 hr 07/28/21 11:23: POC Glucose 82 07/28/21 17:17: POC Glucose 139 H 07/29/21 04:28: Sodium 145, Potassium 4.1, Chloride 118 H, Carbon Dioxide 21.0, Anion Gap 6, BUN 45 H, Creatinine 1.69 H, Estim Creat Clear Calc 27.34, Est GFR (MDRD) Af Amer 38 L, Est GFR (MDRD) Non-Af 31 L, BUN/Creatinine Ratio 26.6 H, Glucose 111 H, Calcium 7.9 L, Total Bilirubin 1.30 H, AST 62 H, ALT 46, Alkaline Phosphatase 109, Total Protein 5.5 L, Albumin 1.6 L, Globulin 3.9, Albumin/Globulin Ratio 0.4 L 07/29/21 04:28: Ammonia 31.0 Micro: Microbiology 07/21/21 13:10 Blood Culture (Wb) - Right Hand Blood Culture - Final No growth in 5 days. 07/21/21 13:00 Blood Culture (Wb) - Right Hand Blood Culture - Final No growth in 5 days. 07/21/21 15:50 Sputum, Induced/Lukens Gram Stain - Final 07/21/21 15:50 Sputum, Induced/Lukens Respiratory Culture - Final 07/21/21 13:31 Urine Catheter - Drake Urine Culture - Final Klebsiella pneumoniae sp pneum 07/21/21 13:31 Nasal Secretion SARS-CoV-2 Antigen (Rapid) - Final Physical Exam Narrative Physical exam: General: Alert, oriented to self, confused, not pale, not jaundiced, well hydrated HEENT: Atraumatic, ET and OG tube insitu Oral: Moist Mucosa Neck: Supple Lungs: Diminished to auscultation Cardiovascular: HS I+II, regular, no murmurs Abdomen: Bowel Sounds Present, Soft, Non Tender, FMS has liquid stool Extremities: Bilateral leg edema +2 with chronic venous stasis dermatitis Assessment & Plan Assessment/Plan (1) Altered mental status: QUALIFIERS: Altered mental status type: unspecified Qualified Code(s): R41.82 - Altered mental status, unspecified (2) Cirrhosis of liver: QUALIFIERS: Ascites presence: without ascites Hepatic cirrhosis type: alcoholic cirrhosis Qualified Code(s): K70.30 - Alcoholic cirrhosis of liver without ascites (3) Acute kidney insufficiency: (4) Acidosis, lactic: PLAN: 1. Acute hypoxic respiratory failure secondary to #2, possible aspiration pneumonitis, resolved Patient was extubated on 07/26/21; off oxygen Patient was intubated on account of worsening encephalopathy for primary airway protection Continue on Augmentin; will aim for 1 week total antibiotics; stop date is today, 07/29/21 Pocket Secretary Assembler following. Speech therapy consulted 2. Acute hepatic encephalopathy- patient with underlying history of end-stage liver disease/cirrhosis secondary to STEARNS, resolved Patient was extubated on 07/26/21 EGD done on 07/22/21 shows LA Grade C reflux esophagitis, portal hypertensive gastropathy, normal second portion of the duodenum. Diarrhea has improved; continue on lactulose, octreotide, PPI, rifaximin, Lasix, spironolactone GI consulted 3. Small bowel obstruction, status post NG tube, resolved 4. Shock, unclear etiology, noted in ICU, resolved Patient was on pressors for short time Likely was related to medication side effect/dehydration from diarrhea Off pressors, continue midodrine 5. Hypokalemia, resolved 6. TWAN on CKD stage IIIb, likely secondary to dehydration and also #4 Creatinine improving, now 1.52 from 1.64 Continue to trend 7. Acute Klebsiella UTI, was on IV ceftriaxone, received for 2 doses 8. Rest of chronic medical conditions including hypothyroidism, obesity remained stable 9. DVT PPx- Lovenox Sc 10. Disposition: Discharge planning to SNF Charges/Coding Visit Charges Inpatient E&M: 03850 Subs Hosp L2
[2021-07-29 11:10] VITALS: BP 125/63; PULSE 77; RESP 18; TEMP 36.7; O2SAT 95
[2021-07-29] MEDS: Levothyroxine 25 MCG TABLET PO (11:13)
[2021-07-29] MEDS: Isosorbide Mononitrate 30 MG Tablet PO (11:13)
[2021-07-29] MEDS: rifAXIMin 550 MG Tablet PO ×2 (11:13→20:29)
[2021-07-29] MEDS: Pantoprazole Sodium 40 MG Tablet PO ×2 (11:14→20:29)
[2021-07-29] MEDS: Furosemide 40 MG Tablet PO ×2 (11:14→17:46)
[2021-07-29] MEDS: Spironolactone 25 MG Tablet PO (11:14)
[2021-07-29] MEDS: Amox/Clavulanate 500 MG Tablet PO ×2 (11:14→20:28)
[2021-07-29 14:00] VITALS: PULSE 70; RESP 20; O2SAT 97
--- NOTE | 2021-07-29 15:35 | CM.ED ---
SW Note ERIC called and left voice message on Annita in Admission at [facility] voice mail. ERIC then called Elissa at [facility]. Elissa agreed to call admissions. Elissa called Brina, admission staff at [facility] and was advised that patient is currently still under review for admission. Eric updated MD, geothermal plant manager and RN CM. ERIC will remain available Elissa SANCHEZ
[2021-07-29] MEDS: 0.9% Saline Lock 10 ML Syringe IV (16:00)
[2021-07-29 16:59] VITALS: BP 101/50; PULSE 71; RESP 18; TEMP 36.6; O2SAT 95
[2021-07-29 20:16] VITALS: BP 100/47; PULSE 75; RESP 19; TEMP 36.4; O2SAT 95
[2021-07-30 03:14] VITALS: BP 111/65; PULSE 83; RESP 17; TEMP 36.9; O2SAT 94
[2021-07-30] MEDS: Midodrine HCl 5 MG Tablet 10 MG PO ×3 (03:31→17:43)
[2021-07-30] MEDS: Nystatin Powder 15gm Bottle 1 APPLIC TOPICAL ×2 (04:29→15:05)
--- NOTE | 2021-07-30 07:11 | PCM.PN.HOSP ---
Subjective Subjective Follow-up on acute hepatic encephalopathy/TWAN: Patient was seen and examined. No acute events. Seen eating breakfast, working with speech therapy. Diarrhea has stopped- she had 1 bowel movement yesterday. Objective Data Objective Data Vital Signs: Vital Signs Temp Pulse Resp BP Pulse Ox 98.5 F 83 17 111/65 94 07/30/21 03:14 07/30/21 03:14 07/30/21 03:14 07/30/21 03:14 07/30/21 03:14 Oxygen Flow Rate (L/min) 2 Oxygen Delivery Method Room Air Weight: 109.2 kg Body Mass Index (BMI) 38.3 Intake & Output: Intake and Output for Last 24 Hours 07/28/21 07/29/21 07/30/21 23:59 23:59 23:59 Intake Total 240 / 240 1020 / 1020 240 / 240 Output Total 900 / 1250 500 / 500 1000 / 1000 Balance -660 / -1010 520 / 520 -760 / -760 Lab / Micro Data Result Diagrams: 07/28/21 07:18 07/29/21 04:28 Micro: Microbiology 07/21/21 13:10 Blood Culture (Wb) - Right Hand Blood Culture - Final No growth in 5 days. 07/21/21 13:00 Blood Culture (Wb) - Right Hand Blood Culture - Final No growth in 5 days. 07/21/21 15:50 Sputum, Induced/Lukens Gram Stain - Final 07/21/21 15:50 Sputum, Induced/Lukens Respiratory Culture - Final 07/21/21 13:31 Urine Catheter - Drake Urine Culture - Final Klebsiella pneumoniae sp pneum 07/21/21 13:31 Nasal Secretion SARS-CoV-2 Antigen (Rapid) - Final Physical Exam Narrative Physical exam: General: Alert, oriented to self, confused, not pale, not jaundiced, well hydrated HEENT: Atraumatic, ET and OG tube insitu Oral: Moist Mucosa Neck: Supple Lungs: Diminished to auscultation Cardiovascular: HS I+II, regular, no murmurs Abdomen: Bowel Sounds Present, Soft, Non Tender, FMS has liquid stool Extremities: Bilateral leg edema +1 with chronic venous stasis dermatitis Assessment & Plan Assessment/Plan (1) Altered mental status: QUALIFIERS: Altered mental status type: unspecified Qualified Code(s): R41.82 - Altered mental status, unspecified (2) Cirrhosis of liver: QUALIFIERS: Hepatic cirrhosis type: alcoholic cirrhosis Ascites presence: without ascites Qualified Code(s): K70.30 - Alcoholic cirrhosis of liver without ascites (3) Acute kidney insufficiency: (4) Acidosis, lactic: PLAN: Summary: 76-year-old female with past medical history of end-stage liver disease, resident in a correction who comes in with altered mental status. 1. Acute hypoxic respiratory failure secondary to #2, possible aspiration pneumonitis, resolved Patient was extubated on 07/26/21; off oxygen Patient was intubated on account of worsening encephalopathy for primary airway protection Completed antibiotics on 07/29/21 2. Acute hepatic encephalopathy- patient with underlying history of end-stage liver disease/cirrhosis secondary to STEARNS, resolved Patient is alert oriented x3. No asterixis seen. Patient was extubated on 07/26/21 EGD done on 07/22/21 shows LA Grade C reflux esophagitis, portal hypertensive gastropathy, normal second portion of the duodenum. Diarrhea has improved; continue on lactulose, octreotide, PPI, rifaximin, Lasix, spironolactone GI consulted 3. Small bowel obstruction, status post NG tube, resolved 4. Shock, unclear etiology, noted in ICU, resolved Patient was on pressors for short time Likely was related to medication side effect/dehydration from diarrhea Continue midodrine 5. Hypokalemia, resolved 6. TWAN on CKD stage IIIb, likely secondary to dehydration and also #4, improved Repeat blood work in am 7. Acute Klebsiella UTI, was on IV ceftriaxone, received for 2 doses 8. Rest of chronic medical conditions including hypothyroidism, obesity remained stable 9. DVT PPx- Lovenox Sc 10. Disposition: Discharge planning to SNF Charges/Coding Visit Charges Inpatient E&M: 11027 Subs Hosp L2
[2021-07-30] MEDS: Furosemide 40 MG Tablet PO ×2 (09:03→17:44)
[2021-07-30] MEDS: Isosorbide Mononitrate 30 MG Tablet PO (09:04)
[2021-07-30] MEDS: rifAXIMin 550 MG Tablet PO (09:04)
[2021-07-30] MEDS: Levothyroxine 25 MCG TABLET PO (09:04)
[2021-07-30] MEDS: Pantoprazole Sodium 40 MG Tablet PO (09:04)
[2021-07-30] MEDS: Menthol/Lanolin/Calamine/Znox 113 GM Tube 1 APPLIC TOPICAL (09:05)
[2021-07-30] MEDS: Spironolactone 25 MG Tablet PO (09:05)
[2021-07-30 09:15] VITALS: BP 117/65; PULSE 71; RESP 18; TEMP 36.4; O2SAT 95
[2021-07-30] MEDS: Lactulose 20 GM/30 ML UDC PO (10:04)
[2021-07-30 14:26] VITALS: BP 117/67; PULSE 79; RESP 18; TEMP 36.6; O2SAT 94
[2021-07-30 15:03] VITALS: O2SAT 93
[2021-07-30 21:06] VITALS: BP 132/84; PULSE 75; RESP 16; TEMP 35.9; O2SAT 93
[2021-07-31] MEDS: Nystatin Powder 15gm Bottle 1 APPLIC TOPICAL ×4 (00:24→21:44)
[2021-07-31] MEDS: Menthol/Lanolin/Calamine/Znox 113 GM Tube 1 APPLIC TOPICAL ×3 (00:24→21:45)
[2021-07-31] MEDS: Midodrine HCl 5 MG Tablet 10 MG PO ×3 (01:07→18:21)
[2021-07-31 01:17] VITALS: BP 115/67; PULSE 72; RESP 16; TEMP 35.9; O2SAT 94
[2021-07-31] MEDS: 0.9% Saline Lock 10 ML Syringe IV (05:29)
[2021-07-31 06:54] VITALS: BP 115/88; PULSE 70; RESP 15; TEMP 36.2; O2SAT 95
[2021-07-31 07:18] LABS: Absolute Lymphocyte Count 2.41 X10^3/uL (0.83-4.51); Basophil# 0.03 X10^3/uL; Basophil% 0.3 % (0-1); Eosinophil# 0.29 X10^3/uL; Eosinophils% 3.3 % (0-5); Hemoglobin 7.9 g/dL (12.0-15.0); Lymphocyte # 2.41 X10^3/ul (0.83-4.51); Lymphocyte % 27.5 % (19-41); Mean Corp Hgb Conc 31.6 g/dL (32-36); Mean Corpuscular Hgb 29.7 pg (27.0-32.0); Mean Platelet Vol. 10.7 fl (6.2-12.0); Monocyte# 0.96 X10^3/uL; Monocyte% 10.9 % (0-10); NRBC Flagged by Analyzer 0 % (0-5); Neutrophil % 57.1 % (47-70); POSITIVE COUNT YES; Platelet Count 76 K/mm3 (150-450); RBC Distribution Width CV 18.3 % (11.6-14.6); RBC Distribution Width SD 58.9 fl (35.1-43.9); Red Blood Count 2.66 M/mm3 (4.2-5.4); White Blood Count 8.8 K/mm3 (4.4-11.0)
--- NOTE | 2021-07-31 07:22 | PCM.PN.HOSP ---
Subjective Subjective Patient with no acute events overnight per self and per nursing report. Patient has been on treatment initially for Rocephin for UTI however the culture was unremarkable and it was de-escalate it off. She does have some complaints of generalized aching and discomfort especially with activity but notes it is improving. She is amenable to transition to skilled facility once bed available. Patient denies fevers, chills, nausea, emesis, abdominal pain, chest pain or dyspnea. Objective Data Objective Data Vital Signs: Vital Signs Temp Pulse Resp BP Pulse Ox 97.2 F L 70 15 115/88 H 95 07/31/21 06:54 07/31/21 06:54 07/31/21 06:54 07/31/21 06:54 07/31/21 06:54 Oxygen Flow Rate (L/min) 2 Oxygen Delivery Method Room Air Weight: 242 lb 4.608 oz Body Mass Index (BMI) 38.3 Intake & Output: Intake and Output for Last 24 Hours 07/29/21 07/30/21 07/31/21 23:59 23:59 23:59 Intake Total 1020 / 1020 1390 / 1390 120 / 120 Output Total 500 / 500 1000 / 1000 550 / 550 Balance 520 / 520 390 / 390 -430 / -430 Lab / Micro Data Result Diagrams: 07/31/21 06:38 07/31/21 06:38 Labs: Laboratory Results - last 24 hr 07/31/21 06:38: WBC 8.8, RBC 2.66 L, Hgb 7.9 L, Hct 25.0 L, MCV 94.0 D, MCH 29.7, MCHC 31.6 L D, RDW Std Deviation 58.9 H, RDW Coeff of [place] 18.3 H, Plt Count 76 L, MPV 10.7, Immature Gran % (Auto) 0.900, Neut % (Auto) 57.1, Lymph % (Auto) 27.5, [place] % (Auto) 10.9 H, Eos % (Auto) 3.3, Baso % (Auto) 0.3, Absolute Neuts (auto) 5.0, Absolute Lymphs (auto) 2.41, Nucleated RBC % 0 Micro: Microbiology 07/21/21 13:10 Blood Culture (Wb) - Right Hand Blood Culture - Final No growth in 5 days. 07/21/21 13:00 Blood Culture (Wb) - Right Hand Blood Culture - Final No growth in 5 days. 07/21/21 15:50 Sputum, Induced/Lukens Gram Stain - Final 07/21/21 15:50 Sputum, Induced/Lukens Respiratory Culture - Final 07/21/21 13:31 Urine Catheter - Drake Urine Culture - Final Klebsiella pneumoniae sp pneum 07/21/21 13:31 Nasal Secretion SARS-CoV-2 Antigen (Rapid) - Final Physical Exam Narrative Physical Examination: General: Awake, alert, oriented x 2 including self and recent events but still has some underlying chronic confusion, eating breakfast this morning, notes achiness but otherwise no complaints. Skin: Normal color, normal turgor, no icterus, no cyanosis except for various staged ecchymoses, picked scabs and bilateral lower extremity venous stasis disease. HEENT: AT/NC, EOMI, PERRLA, MMM. Lungs: Diminished, greater bases, moderate effort, no rales, ronchi or wheezing. Heart: Regular rate and rhythm; no gallop, rub audible. Abdomen: Soft, morbidly obese, NTTP, difficult to assess distention given habitus, distant normal bowel sounds, no marked fluid wave. Extremities: No cyanosis, no clubbing, BL LE pedal to distal lakhani 1+ chronic edema, bilateral lower extremity venous stasis disease. Neurological: Patient awake, alert, oriented x 3, cognitive function intact; pupils equally reactive to light and accommodation, cranial nerves II-XII grossly normal, moving all 4 extremities, no focal deficits, strength moderately to severely global decreased secondary to acute presentation and underlying comorbidities Psychiatric: Affect appears normal, no acute evidence of depressive or anxiety feelings. Assessment & Plan Assessment/Plan (1) Hepatic encephalopathy: (2) Acute respiratory failure: QUALIFIERS: Respiratory failure complication: hypoxia Qualified Code(s): J96.01 - Acute respiratory failure with hypoxia PLAN: The patient is a 76 y/o F w/ PMHx: Chronic CHF Unclear type, HTN, HLD, PVD, Diabetes mellitus type II, End-stage Liver Cirrhotic disease, Hypothyroidism who presents to the [facility] ED on 07/21/21 with altered mental status with recent falls at custodial facility with increasing lethargy, difficulty protecting her airway and unresponsiveness prompting ED evaluation with immediate intubation upon arrival. #1. Acute hypoxic respiratory failure, multifactorial, secondary to suspected possible early aspiration pneumonitis and #2 is noted acute decompensated cirrhosis with encephalopathy: Patient initially admitted to the ICU, intubated per the ED given significant exam findings with difficulty managing airway, extubated 07/26/2021, treated with broad-spectrum antibiotic therapy eventually completed 07/29/2021 with transition out of the ICU once appropriate. #2. Acute decompensated cirrhosis with hepatic encephalopathy: Certainly contributed to acute presentation #1, patient with end-stage liver disease/cirrhosis with underlying [place], EGD 07/22/2021 with LA grade C reflux esophagitis, portal hypertensive gastropathy and a normal second portion the duodenum, treated transiently with octreotide, maintained on lactulose, PPI, rifaximin, Lasix and spironolactone, GI consulted and following. #3. Shock, undifferentiated of unclear etiology: Noted in the ICU, requiring pressors for a very short segment of time, suspected possibly medication related or potentially GI losses initially having diarrhea which resolved, maintained on midodrine. #4. Small bowel obstruction, resolved: Patient with conservatively treated small bowel obstruction with NG tube placement, resolved, NG tube eventually discontinued and patient has been tolerating a diet without issue. #5. Acute kidney injury on CKD stage IIIb: Secondary to GI losses with diarrhea, patient creatinine did increase up to 2.07 on 07/23/2021, improved transiently and then increased again, slowly trending downward, 07/31/2021 BUN/creatinine 44/1.59, improved, continue to trend BMP. #6. Acute Klebsiella UTI, ruled out: Maintain on IV Rocephin treated for 2 doses however urine culture resulted with only 1000-10,000 colony-forming units, antibiotics discontinued. #7. Chronic anemia: Admission hemoglobin 8.8, most recent 07/31/2021 hemoglobin 7.9, likely related with underlying chronic diseases as noted above, continue to trend. #8. Chronic CHF, unclear type: Not on antiplatelet therapy secondary to underlying liver disease, will continue Lasix, spironolactone, not on SUSANNAH inhibitor/ARB secondary to underlying liver disease, not on beta-wilrfedo therapy. No recent echocardiogram noted in system. #9. Hypothyroidism: Continue home synthroid regimen. #10. DVT prophylaxis: SCDs, holding chemoprophylaxis given underlying end-stage liver disease. #11. CODE STATUS: DNR-CCA, no intubation Charges/Coding Visit Charges Inpatient E&M: 85108 Subs Hosp L2
[2021-07-31 07:36] LABS: ALB/GLOB Ratio 0.4 RATIO (0.9-2.4); AST(SGOT) 66 U/L (15-37); Alanine Aminotransfer ALT/SGPT 40 U/L (13-56); Albumin, Serum 1.4 g/dL (3.2-5.0); Alkaline Phosphatase 109 U/L (45-117); Anion Gap 7 (5-15); BUN 44 mg/dL (7-18); BUN/Creat Ratio 27.7 RATIO (10-20); Calcium,Total 7.7 mg/dL (8.5-10.1); Chloride 117 mmol/L (98-107); Creatinine, Serum 1.59 mg/dL (0.55-1.02); EST Glomerular Filtration Rate 34 mL/min (>60); Est Glom Filt Rate - Afr Amer 41 mL/min (>60); Estimated Creatinine Clearance 29.06 ml/min; Globulin 3.6 g/dL (2.2-4.2); Glucose 93 mg/dL (74-106); Potassium 3.9 mmol/L (3.5-5.1); Sodium Level 145 mmol/L (136-145)
[2021-07-31] MEDS: Spironolactone 25 MG Tablet PO (08:41)
[2021-07-31] MEDS: Isosorbide Mononitrate 30 MG Tablet PO (08:42)
[2021-07-31] MEDS: Pantoprazole Sodium 40 MG Tablet PO ×2 (08:42→21:50)
[2021-07-31] MEDS: Furosemide 40 MG Tablet PO ×2 (08:42→18:21)
[2021-07-31] MEDS: rifAXIMin 550 MG Tablet PO (08:43)
[2021-07-31] MEDS: Levothyroxine 25 MCG TABLET PO (08:43)
--- NOTE | 2021-07-31 08:47 | CM.UR ---
Addendum entered by Ellen Baeza 07/31/21 10:48: Social Work SW received a call from Rosa Maria at [facility], they are not able to take pt. SW called Annita at [facility], message left, updates faxed. CARRIE Gage Addendum entered by Ellen Baeza 07/31/21 10:04: Social Work Rosa Maria from [facility] requested updates, updates faxed. CARRIE Gage Original Note: Social Work SW called [facility], spoke w/Rosa Maria. She states will let SW know if they can take pt. SW will continue to follow. CARRIE Gage
--- NOTE | 2021-07-31 10:56 | CASEMGMT ---
Social Work SW called [facility], spoke w/Rosa Maria. She states will let SW know if they can take pt. She requested updates. SW faxed the updates. Rosa Maria called back and said they cannot take pt. ERIC called Annita at [facility], message left and updates faxed. ERIC then called daughter Catherine, updated her, will let her know as soon as ERIC hears back from [facility]. CARRIE Gage
--- NOTE | 2021-07-31 12:37 | CASEMGMT ---
Addendum entered by Ellen Baeza 07/31/21 16:24: Social Work SW spoke w/Annita again from [facility], she is still trying to find out from their regional project manager if pt can come. They are concerned if pt runs out of the med Xifaxan before she is discharged, then they will be stuck paying for the med. SW did reiterate that as per the daughter the pt was approved to get it for free, however SW was not able to verify this as the person at the doctor's office who helped with this is on vacation. SW will continue to follow, will call Annita again tomorrow. CARRIE Gage Addendum entered by Ellen Baeza 07/31/21 14:24: SW did call daughter to let her know we are still waiting to hear back, message left. SW will continue to follow. CARRIE Gage Addendum entered by Ellen Baeza 07/31/21 14:19: Social Work SW called Annita at [facility] again, left another message to please let SW know whether or not they can take this pt. SW will continue to follow. CARRIE Gage Original Note: [facility], asked to speak w/Stephanie in admissions. SW informed that Stephanie just left to go to their other facility, and to call her again on her cell phone. SW called Annita, spoke w/. She states the issue is that pt is on Xifaxan, and this med is $104/day. SW explained will find out if pt needs to stay on this medication. SW texted physician, she states this is a med for liver failure, and will need to be on it adjunct faculty for medical terminology. ERIC called daughter Catherine. SW explained that this medication Xifaxan is $104/day, and this may be the reason pt is not getting accepted at nursing homes. SW inquired if pt has been on this medication for very long. Daughter states pt has samples at home, and was approved to get this medication covered, she states a nurse at Dr. Thorpe's office assisted pt in applying. The number for Dr. Thorpe is [phone]. Daughter states pt does still have about 3 weeks of samples left. SW inquired if daughter can bring in the medication if the shelter would allow it. Daughter states yes, she states they didn't get additional medication ordered as pt has been in and out of the hospital and nursing homes. ERIC explained will call the shelter and the doctor's office. Eric called Annita again at [facility]. They would be okay w/pt bringing in her medication from home. She states will check w/her team once more to make sure they can take pt and will call this SW back. ERIC then called Dr. Thorpe's office. ERIC informed that the person who helps with this is on vacation, but Keirsten will be back next Saturday, daughter can call back and speak w/her next week on how to order the medication. ERIC now waiting for Annita to again call this SW back, to let SW know if they can definitively take pt. ERIC will then call daughter back. CARRIE Gage
[2021-07-31 14:39] VITALS: BP 93/51; PULSE 88; RESP 18; TEMP 36.4; O2SAT 97
--- NOTE | 2021-07-31 18:59 | NURSING ---
Heron, son aware of transfer to pcu. Unable to reach other siblings.
[2021-07-31 20:30] VITALS: BP 121/54; PULSE 75; RESP 16; TEMP 36.3; O2SAT 95
[2021-07-31] MEDS: Lactulose 20 GM/30 ML UDC PO (21:44)
[2021-08-01 03:30] VITALS: BP 100/50; PULSE 70; RESP 16; TEMP 36.2; O2SAT 96
[2021-08-01] MEDS: Nystatin Powder 15gm Bottle 1 APPLIC TOPICAL ×3 (05:29→22:52)
[2021-08-01] MEDS: 0.9% Saline Lock 10 ML Syringe IV (06:23)
[2021-08-01 06:33] LABS: Absolute Lymphocyte Count 2.34 X10^3/uL (0.83-4.51); Absolute Neutrophil Count 6.3 X10^3/uL (2.0-7.7); Basophil# 0.03 X10^3/uL; Basophil% 0.3 % (0-1); Eosinophil# 0.27 X10^3/uL; Eosinophils% 2.7 % (0-5); Hematocrit 25.1 % (37-47); Lymphocyte # 2.34 X10^3/ul (0.83-4.51); Lymphocyte % 23.4 % (19-41); Mean Corp Hgb Conc 31.9 g/dL (32-36); Monocyte# 0.98 X10^3/uL; Monocyte% 9.8 % (0-10); NRBC Flagged by Analyzer 0.2 % (0-5); Neutrophil # 6.31 X10^3/uL (2.7-7.7); Neutrophil % 62.9 % (47-70); POSITIVE COUNT YES; Platelet Count 93 K/mm3 (150-450); RBC Distribution Width CV 18.3 % (11.6-14.6); RBC Distribution Width SD 58.5 fl (35.1-43.9); Red Blood Count 2.67 M/mm3 (4.2-5.4)
[2021-08-01 07:04] LABS: ALB/GLOB Ratio 0.4 RATIO (0.9-2.4); AST(SGOT) 74 U/L (15-37); Alanine Aminotransfer ALT/SGPT 42 U/L (13-56); Albumin, Serum 1.5 g/dL (3.2-5.0); Alkaline Phosphatase 125 U/L (45-117); Anion Gap 7 (5-15); BUN 43 mg/dL (7-18); BUN/Creat Ratio 26.9 RATIO (10-20); Calcium,Total 7.9 mg/dL (8.5-10.1); Chloride 114 mmol/L (98-107); EST Glomerular Filtration Rate 33 mL/min (>60); Est Glom Filt Rate - Afr Amer 41 mL/min (>60); Estimated Creatinine Clearance 28.88 ml/min; Globulin 3.6 g/dL (2.2-4.2); Glucose 116 mg/dL (74-106); Potassium 4.1 mmol/L (3.5-5.1); Protein, Total 5.1 g/dL (6.4-8.2); Sodium Level 143 mmol/L (136-145)
[2021-08-01 08:12] VITALS: BP 105/53; PULSE 77; RESP 17; TEMP 36.6; O2SAT 97
[2021-08-01] MEDS: Isosorbide Mononitrate 30 MG Tablet PO (08:30)
[2021-08-01] MEDS: Midodrine HCl 5 MG Tablet 10 MG PO ×2 (08:30→17:57)
[2021-08-01] MEDS: Pantoprazole Sodium 40 MG Tablet PO ×2 (08:30→21:13)
[2021-08-01] MEDS: Furosemide 40 MG Tablet PO ×2 (08:30→17:57)
[2021-08-01] MEDS: Levothyroxine 25 MCG TABLET PO (08:31)
[2021-08-01] MEDS: Spironolactone 25 MG Tablet PO (08:31)
[2021-08-01] MEDS: rifAXIMin 550 MG Tablet PO ×2 (08:32→21:13)
[2021-08-01] MEDS: Lactulose 20 GM/30 ML UDC PO ×2 (08:32→21:13)
[2021-08-01] MEDS: Menthol/Lanolin/Calamine/Znox 113 GM Tube 1 APPLIC TOPICAL ×2 (08:32→21:14)
--- NOTE | 2021-08-01 09:47 | CASEMGMT ---
Social Work ERIC spoke w/Annita at [facility], she states she is still working to see if they can take this pt. SW explained is going to see if there is an alternative medication pt can take instead of the Rifaxamin. ERIC called daughter Catherine, asked her if she knows why pt was prescribed Rifaxamin, daughter does not know why but is open to pt being put on another medication. SW explained that this cost of the medication seems to be holding up the process. ERIC inquired if daughter has other ideas for options for SNF if [facility] will not take pt. She states she and her brother would bring pt home w/home health. ERIC also explained when ERIC called pt's doctor office yesterday, Dr. Thorpe, ERIC was informed Hayden is the person who assisted pt in applying for assist w/this medication, and she is not back until next Saturday. SW explained to daughter that she will need to follow up w/Hayden next week to get the medication ordered. SW explained the residential is concerned if the med does not get ordered, then they will be responsible for the cost of the medication once pt runs out of her samples(daughter has already agreed to bring in the samples of Rifaxamin for pt to use at the residential, and has said pt has 3 weeks' worth of medication). Daughter states understanding. ERIC called pharmacy. Pt is already on lactulose, which would be the alternative to this medication. It is this SW's understanding from pharmacy that there are not other options. ERIC called Annita back at [facility], explained that there seems to be no alternative as pt is also taking the alternative(lactulose) with the Rifaxamin. ERIC pointed out the holdup in their decision seems to be based around whether or not they believe the daughter will follow up in getting the Rifaxamin ordered. ERIC asked Annita if she would like to speak w/the daughter to be reassured that the daughter will follow through. She is willing to speak w/the daughter, Daughter's number given to Annita. ERIC then called daughter and let her know that there does not seem to be an alternative for the Rifaxamin. ERIC let daughter Catherine know gave her number to Annita at [facility] to call her directly, to check w/Catherine about making sure she will get the medication ordered. Catherine states understanding and will speak w/Annita when she calls. SW will continue to follow, waiting now for Catherine and Annita to speak, and then SW to get the final word on whether or not [facility] will take pt. CARRIE Gage
--- NOTE | 2021-08-01 10:26 | PN.HOSP_ITS ---
Subjective Subjective Patient seen and next minute. She was lying calmly in bed. She had no active complaints apart from saying she felt cold. She denied any fever, chills, nausea or vomiting, abdominal pain or diarrhea. Review of systems otherwise negative. She has remained hemodynamically stable. Objective Data Objective Data Vital Signs: Vital Signs Temp Pulse Resp BP Pulse Ox 97.8 F 77 17 105/53 L 97 08/01/21 08:12 08/01/21 08:12 08/01/21 08:12 08/01/21 08:12 08/01/21 08:12 Oxygen Flow Rate (L/min) 2 Oxygen Delivery Method Room Air Weight: 244 lb 11.41 oz Body Mass Index (BMI) 38.3 Intake & Output: Intake and Output for Last 24 Hours 07/30/21 07/31/21 08/01/21 23:59 23:59 23:59 Intake Total 1390 / 1390 120 / 120 Output Total 1000 / 1000 550 / 800 550 / 550 Balance 390 / 390 -430 / -680 -550 / -550 Lab / Micro Data Result Diagrams: 08/01/21 06:25 08/01/21 06:25 Labs: Laboratory Results - last 24 hr 08/01/21 06:25: WBC 10.0, RBC 2.67 L, Hgb 8.0 L, Hct 25.1 L, MCV 94.0, MCH 30.0, MCHC 31.9 L, RDW Std Deviation 58.5 H, RDW Coeff of [place] 18.3 H, Plt Count 93 L, MPV 11.0, Immature Gran % (Auto) 0.900, Neut % (Auto) 62.9, Lymph % (Auto) 23.4, [place] % (Auto) 9.8, Eos % (Auto) 2.7, Baso % (Auto) 0.3, Absolute Neuts (auto) 6.3, Absolute Lymphs (auto) 2.34, Nucleated RBC % 0.2 08/01/21 06:25: Sodium 143, Potassium 4.1, Chloride 114 H, Carbon Dioxide 22.0, Anion Gap 7, BUN 43 H, Creatinine 1.60 H, Estim Creat Clear Calc 28.88, Est GFR (MDRD) Af Amer 41 L, Est GFR (MDRD) Non-Af 33 L, BUN/Creatinine Ratio 26.9 H, Glucose 116 H, Calcium 7.9 L, Total Bilirubin 1.20 H, AST 74 H, ALT 42, Alkaline Phosphatase 125 H, Total Protein 5.1 L, Albumin 1.5 L, Globulin 3.6, Albumin/Globulin Ratio 0.4 L Micro: Microbiology 07/21/21 13:10 Blood Culture (Wb) - Right Hand Blood Culture - Final No growth in 5 days. 07/21/21 13:00 Blood Culture (Wb) - Right Hand Blood Culture - Final No growth in 5 days. 07/21/21 15:50 Sputum, Induced/Lukens Gram Stain - Final 07/21/21 15:50 Sputum, Induced/Lukens Respiratory Culture - Final 07/21/21 13:31 Urine Catheter - Drake Urine Culture - Final Klebsiella pneumoniae sp pneum 07/21/21 13:31 Nasal Secretion SARS-CoV-2 Antigen (Rapid) - Final Physical Exam Const alert, oriented x3 and no apparent distress Orientation / Consciousness: lethargic Exam Limitations: no limitations HEENT head/scalp atraumatic Head and Scalp: normocephalic Mouth: dry mucous membranes Eyes PERRL, EOMs intact bilaterally and conjunctivae normal Neck no lymphadenopathy and supple Resp Resp Narrative: Mildly diminished breath sounds bibasilarly. No wheezes or crackles. On room air. Cardio regular rate, regular rhythm, S1 normal heart sound, S2 normal heart sound and no murmurs GI normal to inspection, nondistended, normoactive bowel sounds, soft to palpation and non-tender Extremity normal to inspection and full ROM Extremity Narrative: Both lower extremities wrapped in bandage due to edema. Peripheral Pulses: Yes pulses 2+ throughout Skin no rashes or lesions noted Neuro oriented x3, CN's II-XII intact bilaterally and moves all extremities Sensorium / Orientation: awake Psych affect normal Assessment & Plan Assessment/Plan (1) Acute respiratory failure: QUALIFIERS: Respiratory failure complication: hypoxia Qualified Code(s): J96.01 - Acute respiratory failure with hypoxia (2) Hepatic encephalopathy: (3) Hepatorenal syndrome: PLAN: #Acute hypoxic respiratory failure which was thought to be due to early aspiration pneumonitis and decompensated cirrhosis * Resolved. Patient now on room air. Completed a course of broad-spectrum antibiotics. Breathing treatments bronchodilators. * #Acute decompensated cirrhosis with hepatic encephalopathy * Cirrhosis due to nonalcoholic steatohepatitis. Gastroenterology on board. * EGD showed grade C reflux esophagitis with portal hypertensive gastropathy. * On lactulose and rifaximin as well as Lasix and spironolactone. GI on board. * #Small bowel obstruction: Resolved with conservative management. #Undifferentiated shock: resolved. Now off pressors. on midodrine. #TWAN on CKD stage IIIb: Creatinine is trended down to normal. Will monitor. #Chronic CHF: On Lasix and spironolactone. Not on any beta-wilfredo and also not on SUSANNAH inhibitor or ARB due to underlying CKD. #Hypothyroidism: On Synthroid DVT prophylaxis: SCDs CODE STATUS: DNR CCA with intubation. Disposition: Awaiting placement Charges/Coding Visit Charges Inpatient E&M: 90504 Subs Hosp L2
[2021-08-01 10:27] VITALS: O2SAT 95
--- NOTE | 2021-08-01 11:54 | CASEMGMT ---
Social Work SW spoke w/Amos at [facility], he states he would review referral for this pt now, they now have bed availability. Last week they did not have availability. Annita then called from [facility]. She states as long as the daughter brings in the Rifaxamin and works to get the prescription filled to continue to bring it in, they will take pt. She states she did call daughter and left a message. Daughter did indicate she will do this to this SW however. Annita states that pt's insurance is still waiving precert, however the case preparer and liner at the prison need to review the information and will say if pt can come today, Annita asked for updates be faxed over (fax is [phone]). SW let the SW in [place] know, she will fax the updates. SW called daughter Catherine to let her know, got her voicemail. Message left to call this SW back, and that [facility] is going to take pt, hopefully today. ERIC will continue to follow. CARRIE Gage
--- NOTE | 2021-08-01 12:00 | CASEMGMT ---
Updates faxed to Annita at [facility]. Await authorization. Destiney LUEVANO
[2021-08-01 14:56] VITALS: BP 91/49; PULSE 77; RESP 16; TEMP 36.6; O2SAT 94
--- NOTE | 2021-08-01 15:15 | CASEMGMT ---
ERIC called Annita at [facility] She did get ERIC's updates that were faxed today. ERIC gave Annita REYES's name and number. They have submitted everything to insurance and are waiting to hear back. Plan: d[facility]c to [facility] once insurance approves. Destiney Renee MEDICAL BILLING AND CODING SPECIALIST [employer]
--- NOTE | 2021-08-01 15:40 | CASEMGMT ---
Social Work SW called [facility], message left for Amos letting him know that pt will be going to a different facility and SW not sending referral. SW let Brigida at [facility] know pt is definitely not returning. She is going to fax over the hospital exemption as SW unable to access it in the online [email or web address] system. SW called daughter again, let her know [facility] can take pt and now we are waiting for precert. SW explained the detention just wants to make sure she will bring in the pt's Rifaxamin and work with the doctor's office to get future prescriptions filled. Daughter states she will do so. SW on PCU now following, will let daughter know when pt is approved to go. CARRIE Lim
[2021-08-01 17:52] VITALS: BP 94/45; PULSE 72; RESP 15; TEMP 36.6; O2SAT 93
[2021-08-01 21:09] VITALS: BP 115/54; PULSE 68; RESP 18; TEMP 36.9; O2SAT 96
[2021-08-02 03:00] VITALS: BP 106/74; PULSE 68; RESP 18; TEMP 36.9; O2SAT 96
[2021-08-02 04:36] LABS: Absolute Lymphocyte Count 2.42 X10^3/uL (0.83-4.51); Absolute Neutrophil Count 6.3 X10^3/uL (2.0-7.7); Basophil# 0.05 X10^3/uL; Basophil% 0.5 % (0-1); Eosinophil# 0.24 X10^3/uL; Eosinophils% 2.4 % (0-5); Hematocrit 25.3 % (37-47); Hemoglobin 7.9 g/dL (12.0-15.0); Lymphocyte # 2.42 X10^3/ul (0.83-4.51); Lymphocyte % 24.3 % (19-41); Mean Corp Hgb Conc 31.2 g/dL (32-36); Mean Corpuscular Hgb 29.4 pg (27.0-32.0); Mean Corpuscular Volume 94.1 fL (81-99); Mean Platelet Vol. 10.9 fl (6.2-12.0); Monocyte# 0.85 X10^3/uL; Monocyte% 8.5 % (0-10); NRBC Flagged by Analyzer 0 % (0-5); Neutrophil # 6.31 X10^3/uL (2.7-7.7); Neutrophil % 63.5 % (47-70); POSITIVE COUNT YES; Platelet Count 93 K/mm3 (150-450); RBC Distribution Width CV 18.5 % (11.6-14.6); RBC Distribution Width SD 58.4 fl (35.1-43.9); Red Blood Count 2.69 M/mm3 (4.2-5.4)
[2021-08-02 07:27] LABS: ALB/GLOB Ratio 0.4 RATIO (0.9-2.4); AST(SGOT) 70 U/L (15-37); Alanine Aminotransfer ALT/SGPT 42 U/L (13-56); Albumin, Serum 1.4 g/dL (3.2-5.0); Alkaline Phosphatase 125 U/L (45-117); Anion Gap 5 (5-15); BUN 42 mg/dL (7-18); BUN/Creat Ratio 27.6 RATIO (10-20); Calcium,Total 7.8 mg/dL (8.5-10.1); Chloride 111 mmol/L (98-107); Creatinine, Serum 1.52 mg/dL (0.55-1.02); EST Glomerular Filtration Rate 36 mL/min (>60); Est Glom Filt Rate - Afr Amer 43 mL/min (>60); Globulin 3.6 g/dL (2.2-4.2); Glucose 95 mg/dL (74-106); Sodium Level 140 mmol/L (136-145)
--- NOTE | 2021-08-02 09:25 | CASEMGMT ---
ERIC received a phone call from Annita with [facility]. Annita received insurance authorization for patient. ERIC notified physician. ERIC also faxed patient's [id number] from when she went to [place] per Annita's request. Await orders. Destiney LUEVANO
--- NOTE | 2021-08-02 10:04 | CASEMGMT ---
ERIC faxed 7 day MAR to [facility] per Annita's request. Destiney Renee DRYCLEANER BASSEM
--- NOTE | 2021-08-02 10:05 | CASEMGMT ---
ERIC called patient's daughter Catherine and let her know patient was approved and she will go to [facility] ([facility] today. ERIC will call Catherine once ERIC has a time set up. Destiney LUEVANO
[2021-08-02 10:35] VITALS: BP 99/57; PULSE 74; RESP 18; TEMP 36.6; O2SAT 98
[2021-08-02] MEDS: Pantoprazole Sodium 40 MG Tablet PO (10:44)
[2021-08-02] MEDS: Midodrine HCl 5 MG Tablet 10 MG PO (10:44)
[2021-08-02] MEDS: Levothyroxine 25 MCG TABLET PO (10:44)
[2021-08-02] MEDS: Spironolactone 25 MG Tablet PO (10:45)
[2021-08-02] MEDS: Furosemide 40 MG Tablet PO (10:45)
[2021-08-02] MEDS: Lactulose 20 GM/30 ML UDC PO (10:45)
[2021-08-02] MEDS: rifAXIMin 550 MG Tablet PO (10:45)
[2021-08-02] MEDS: Menthol/Lanolin/Calamine/Znox 113 GM Tube 1 APPLIC TOPICAL (10:45)
--- NOTE | 2021-08-02 11:56 | DS.PCM_ITS ---
Providers Date of Admission: 07/21/21 Primary Care Physician: Dr. Gentry Thorpe, DO Consultations 07/21/21 15:13 Consult: Gastroenterology Routine Consulting Provider: [facility] Reason for Consult: Hepatic encephalopathy EMERGENT Consult: No Notified: Yes Date Notified: 07/21/21 Time Notified: 16:49 Method of Notification: Page Consult: Sample Processor / Pulmonary Medicine Routine Consulting Provider: Pulmonary Medicine eliza [place] Reason for Consult: Vent management EMERGENT Consult: No Notified: Yes Date Notified: 07/21/21 Time Notified: 15:13 Method of Notification: Text Reason For Visit: ALTERED MENTAL STATUS Diagnosis Discharge Diagnosis (1) Acute respiratory failure: Status: Acute Code(s): J96.00 - Acute respiratory failure, unspecified whether with hypoxia or hypercapnia Qualifiers: Respiratory failure complication: hypoxia Qualified Code(s): J96.01 - Acute respiratory failure with hypoxia (2) Hepatic encephalopathy: Status: Acute Code(s): K72.90 - Hepatic failure, unspecified without coma (3) Hepatorenal syndrome: Status: Acute Code(s): K76.7 - Hepatorenal syndrome Medications at Discharge Home Medications acetaminophen 500 mg PO Q6H PRN 07/21/21 cinnamon bark [Cinnamon] 500 mg PO BID 07/21/21 isosorbide mononitrate 30 mg PO DAILY 07/21/21 lactulose 30 ml PO 4X/DAY 07/21/21 levothyroxine 25 mcg PO DAILY 07/21/21 lisinopril 5 mg PO DAILY 07/21/21 olopatadine 1 drp EACH EYE BID 07/21/21 omeprazole 20 mg PO DAILY 07/21/21 rifaximin 550 mg PO BID 07/21/21 spironolactone [Aldactone] 25 mg PO DAILY 07/21/21 tramadol 50 mg PO Q6H PRN 07/21/21 furosemide 40 mg PO BIDLX #60 tab 08/02/21 Hospital Course Operations None Procedures EGD Summary of Care Provided Minutes Spent on Discharge: 45 Hospital Course: Patient is a 76-year-old female with a past medical history significant for 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 She was admitted from her standard care facility via an outside hospital for altered mental status. She was noted to have also fallen a few times at the extended care facility. On the morning of admission she was found to be much more lethargic than usual so she was brought into the ED. Patient was barely responsive and could not protect her airway so she was emergently intubated. She was admitted to the ICU and managed for acute metabolic encephalopathy likely due to end-stage liver disease. She was started on lactulose and gastroenterology was consulted.Her ammonia level was elevated at 133. Abdominal ultrasound showed findings concerning for cirrhosis along with gallbladder wall thickening. She was also placed on empiric antimicrobials for potential aspiration. Ammonia trended upwards and peaked at 185. Hospital course was also complicated by hepatorenal syndrome and she was started on octreotide in addition to midodrine. Hospital course was also complicated by UTI due to Klebsiella for which she was put on IV ceftriaxone. Ammonia gradually trended down. Patient was extubated on 07/26/2021. Hospital course was complicated by hypotension for which she required pressors. She was subsequently weaned off of pressors and continued her midodrine. Patient was started on rifaximin by GI. She had EGD which showed grade C reflux esophagitis with portal hypertensive gastropathy. She was eventually discharged to shelter facility on 08/02/2021. She is to follow-up with her primary care doctor and with gastroenterology. Patient seen and examined prior to discharge. She had no active complaints and review of systems otherwise negative. Labs and vitals reviewed. Home medication reviewed and reconciled. Physical Exam Const alert, oriented x3 and no apparent distress General Appearance: cooperative and comfortable Orientation / Consciousness: awake Exam Limitations: no limitations HEENT normocephalic and head/scalp atraumatic Eyes PERRL, EOMs intact bilaterally and conjunctivae normal Neck no lymphadenopathy and supple Resp Resp Narrative: Mildly diminished breath sounds bibasilarly. No wheezes or crackles. On room air. Cardio regular rate, regular rhythm, S1 normal heart sound, S2 normal heart sound and no murmurs GI normal to inspection, nondistended, normoactive bowel sounds, soft to palpation and non-tender Extremity normal to inspection and full ROM Extremity Narrative: Both lower extremities wrapped in bandage due to edema. Skin no rashes or lesions noted Neuro oriented x3, CN's II-XII intact bilaterally and moves all extremities Sensorium / Orientation: awake and alert Psych affect normal Weight / BMI Weight Weight: 245 lb 2.464 oz Body Mass Index (BMI) 38.3 ABG / Lab / Microbiology Data Result Diagrams: 08/02/21 04:30 08/02/21 04:30 Laboratory: Laboratory Results - last 24 hr 08/02/21 04:30: WBC 10.0, RBC 2.69 L, Hgb 7.9 L, Hct 25.3 L, MCV 94.1, MCH 29.4, MCHC 31.2 L, RDW Std Deviation 58.4 H, RDW Coeff of [place] 18.5 H, Plt Count 93 L, MPV 10.9, Immature Gran % (Auto) 0.800, Neut % (Auto) 63.5, Lymph % (Auto) 24.3, [place] % (Auto) 8.5, Eos % (Auto) 2.4, Baso % (Auto) 0.5, Absolute Neuts ( auto) 6.3, Absolute Lymphs (auto) 2.42, Nucleated RBC % 0 08/02/21 04:30: Sodium 140, Potassium 4.0, Chloride 111 H, Carbon Dioxide 24.0, Anion Gap 5, BUN 42 H, Creatinine 1.52 H, Estim Creat Clear Calc 30.40, Est GFR (MDRD) Af Amer 43 L, Est GFR (MDRD) Non-Af 36 L, BUN/Creatinine Ratio 27.6 H, Glucose 95, Calcium 7.8 L, Total Bilirubin 1.20 H, AST 70 H, ALT 42, Alkaline Phosphatase 125 H, Total Protein 5.0 L, Albumin 1.4 L, Globulin 3.6, Albumin/Globulin Ratio 0.4 L Microbiology: Microbiology 07/21/21 13:10 Blood Culture (Wb) - Right Hand Blood Culture - Final No growth in 5 days. 07/21/21 13:00 Blood Culture (Wb) - Right Hand Blood Culture - Final No growth in 5 days. 07/21/21 15:50 Sputum, Induced/Lukens Gram Stain - Final 07/21/21 15:50 Sputum, Induced/[place]ukens Respiratory Culture - Final 07/21/21 13:31 Urine Catheter - Drake Urine Culture - Final Klebsiella pneumoniae sp pneum 07/21/21 13:31 Nasal Secretion SARS-CoV-2 Antigen (Rapid) - Final D/C Instructions Discharge Diet: Low fat / Low cholesterol Discharge Activity: Return to Normal Activity Weight Bearing Status: Weight bearing as tolerated Call your doctor if you observe: Fever of 101 or Higher, Shortness of breath, Dizziness and Swelling in the ankles Meaningful Use Info Meaningful Use Diagnoses (Choose all that apply): None applicable Discharge Plan Admission Admit Date/Time: 07/21/21 15:09 Primary Reason for Your Visit: acute hepatic encephalopathy Attending Provider: Ofelia Hsu Primary Care Provider: Gentry Thorpe Consulting Providers: Lincoln Wagner ; Cole Corrales ; Christina Harris CHEMICAL RADIATION TECHNICIAN Instructions Patient Instructions: Hepatic Encephalopathy Discharge Orders/Prescriptions Prescriptions: New furosemide 40 mg Tablet 40 mg PO BIDLX Qty: 60 RF: 1 Continued isosorbide mononitrate 30 mg Tablet Extended Release 24 Hr 30 mg PO DAILY RF: 0 spironolactone [Aldactone] 25 mg Tablet 25 mg PO DAILY RF: 0 levothyroxine 25 mcg Tablet 25 mcg PO DAILY RF: 0 olopatadine 0.1 % Drops 1 drp EACH EYE BID RF: 0 omeprazole 20 mg Capsule,Delayed Release(Dr/Ec) 20 mg PO DAILY RF: 0 lisinopril 5 mg Tablet 5 mg PO DAILY RF: 0 cinnamon bark [Cinnamon] 500 mg Capsule 500 mg PO BID RF: 0 lactulose 10 gram/15 mL Solution 30 ml PO 4X/DAY RF: 0 rifaximin 550 mg Tablet 550 mg PO BID RF: 0 tramadol 50 mg Tablet 50 mg PO Q6H PRN (Reason: MOD PAIN) RF: 0 acetaminophen 500 mg Tablet 500 mg PO Q6H PRN (Reason: PAIN AND FEVER) RF: 0 Discontinued bumetanide [Bumex] 2 mg Tablet 2 mg PO DAILY RF: 0 Referrals / Follow Up: Gentry Thorpe DO [Primary Care Provider] - Within 2 Weeks Disposition Disposition (needs filled in before D/C Order can be placed): [facility] Charges/Coding Visit Charges Inpatient E&M: 90396 Disch Hosp
--- NOTE | 2021-08-02 12:28 | PCM.TXEXTCAR ---
Diet 07/28/21 14:20 Diet: Cardiac - Heart Healthy Food consistency:: Soft & Bite Sized Liquid Consistency:: Regular/Thin Dietary Modifications:: Consistent Carbohydrate Type of Dietary Supplement:: 4 oz Glucerna Shake tid Is pt able to select menu?: No Diet Comments: CHO controlled, NO STRAWS, small bites/sips, distant supervision Routine Orders/Code Status Enema Type: Fleetz Enema Frequency: Daily PRN Suppository Type: Dulcolax 10mg Suppository Frequency: Daily PRN O2 Frequency: PRN Keep PO Greater than or Equal to (%): 90 Wound(s) rt abdominal fold: Wound Type: Skin Tear right groin: Wound Type: Skin Tear under Bogdan Breasts: Wound Type: Skin Tear L Abd fold: Wound Type: Skin Tear Therapies Weight Bearing: Weight bearing as tolerated Physical Therapy: Eval and Treat Occupational Therapy: Eval and Treat Problem/Diagnosis (1) Acute respiratory failure: Status: Acute (2) Hepatic encephalopathy: Status: Acute (3) Hepatorenal syndrome: Status: Acute Allergies/Procedures Done in Hospital Allergies No Known Allergies Allergy (Verified 07/21/21 12:55) Type of Care/Length of Stay Estimated LOS: Convalescent Care Less Than 30 days Type of Care Needed: Skilled Rehab Potential: Fair Prognosis: Fair Additional Orders/Day of Discharge Additional Orders: Please consider Palliative Care consult for patient Day of Discharge: 08/02/21 Dietary and Speech Recommendations Dietitian Recommendations/Changes: Continue cardiac, CHO controlled diet- texture/consistency modifications per INSTRUMENTATION CONTROLS ENGINEER. Provide 4 oz glucerna shake w/ meals for increased nutrition if consumed. Discharge Plan Admission Admit Date/Time: 07/21/21 15:09 Primary Reason for Your Visit: acute hepatic encephalopathy Attending Provider: Ofelia Hsu Primary Care Provider: Gentry Thorpe Consulting Providers: Lincoln Wagner ; Cole Corrales ; Christina Harris FLOOR AND WALL APPLIER LIQUID Instructions Patient Instructions: Hepatic Encephalopathy Discharge Orders/Prescriptions Prescriptions: New furosemide 40 mg Tablet 40 mg PO BIDLX Qty: 60 RF: 1 Continued isosorbide mononitrate 30 mg Tablet Extended Release 24 Hr 30 mg PO DAILY RF: 0 spironolactone [Aldactone] 25 mg Tablet 25 mg PO DAILY RF: 0 levothyroxine 25 mcg Tablet 25 mcg PO DAILY RF: 0 olopatadine 0.1 % Drops 1 drp EACH EYE BID RF: 0 omeprazole 20 mg Capsule,Delayed Release(Dr/Ec) 20 mg PO DAILY RF: 0 lisinopril 5 mg Tablet 5 mg PO DAILY RF: 0 cinnamon bark [Cinnamon] 500 mg Capsule 500 mg PO BID RF: 0 lactulose 10 gram/15 mL Solution 30 ml PO 4X/DAY RF: 0 rifaximin 550 mg Tablet 550 mg PO BID RF: 0 tramadol 50 mg Tablet 50 mg PO Q6H PRN (Reason: MOD PAIN) RF: 0 acetaminophen 500 mg Tablet 500 mg PO Q6H PRN (Reason: PAIN AND FEVER) RF: 0 Discontinued bumetanide [Bumex] 2 mg Tablet 2 mg PO DAILY RF: 0 Referrals / Follow Up: Gentry Thorpe DO [Primary Care Provider] - Within 2 Weeks Disposition Disposition (needs filled in before D/C Order can be placed): [facility]
--- NOTE | 2021-08-02 14:09 | CASEMGMT ---
ERIC arranged for patient to get picked up at 1530 via van. ERIC faxed orders and negative COVID test to [facility]. ERIC called patient's daughter and let her know about transport time. ERIC also notified Annita at [facility], RN, and patient. Plan: d/c to [facility] under skilled level of care. [facility] transported via van. Destiney LUEVANO
--- NOTE | 2021-08-02 14:17 | NURSING ---
report given to naomi at [facility], no further questions voiced
--- NOTE | 2021-08-02 14:39 | NURSING ---
called to [facility], pt belongings will be gathered up and family member will get them today
== END 2021-08-02 15:38 | DRG 207 ==
LOC: ED 15:05 → ICU 15:34 → MS2 07-26 14:34 → PCU 07-31 18:42
PROVIDERS: Internal Medicine; Internal Medicine Critical Care Medicine; Internal Medicine Gastroenterology; Admitting Provider Internal Medicine; Emergency Provider Emergency Medicine; PCP Internal Medicine; Visit Provider Student in an Organized Health Care Education/Training Program
PROC: 0DJ08ZZ Inspection of Upper Intestinal Tract, Via Natural or Artificial Opening Endoscopic (ICD-10-PCS; CPT 43235; principal; 2021-07-22 08:45)
DX: J96.01 Acute respiratory failure with hypoxia (principal); N17.0 Acute kidney failure with tubular necrosis; K76.7 Hepatorenal syndrome; K72.00 Acute and subacute hepatic failure without coma; J69.0 Pneumonitis due to inhalation of food and vomit; G93.41 Metabolic encephalopathy; K56.609 Unspecified intestinal obstruction, unspecified as to partial versus complete obstruction; R57.9 Shock, unspecified; K76.6 Portal hypertension; I13.0 Hypertensive heart and chronic kidney disease with heart failure and stage 1 through stage 4 chronic kidney disease, or unspecified chronic kidney disease; E87.2 Acidosis; N30.00 Acute cystitis without hematuria; I50.9 Heart failure, unspecified; K70.30 Alcoholic cirrhosis of liver without ascites; E11.22 Type 2 diabetes mellitus with diabetic chronic kidney disease; E11.51 Type 2 diabetes mellitus with diabetic peripheral angiopathy without gangrene; D69.6 Thrombocytopenia, unspecified; N18.32 Chronic kidney disease, stage 3b; E87.6 Hypokalemia; E78.5 Hyperlipidemia, unspecified; K75.81 Nonalcoholic steatohepatitis (NASH); D50.0 Iron deficiency anemia secondary to blood loss (chronic); B96.1 Klebsiella pneumoniae [K. pneumoniae] as the cause of diseases classified elsewhere; E03.9 Hypothyroidism, unspecified; W19.XXXD Unspecified fall, subsequent encounter; K21.00 Gastro-esophageal reflux disease with esophagitis, without bleeding; Z66 Do not resuscitate; S00.83XD Contusion of other part of head, subsequent encounter
CPT/HCPCS: 31500; 31720; 36415; 36600; 70450; 71045; 74018; 76700; 80053; 81001; 82140; 82803; 82962; 83540; 83550; 83605; 83735; 84443; 85025; 85045; 85610; 85730; 87040; 87070; 87077; 87086; 87088; 87186; 87205; 87426; 92526; 92610; 92611; 93005; 94002; 94003; 94660; 97110; 97116; 97162; 97166; 97530; 97535; 97803; 99251; 99285; J7030; J7040; J7050; A4216; G0463; J0295; J1940; J3010